=== PATIENT | male | born 1940 | race Caucasian/White ===

== ENCOUNTER → 2020-06-12 10:19 | Outpatient (BNVA) | payer MEDICARE, SELFPAY | PROVIDERS: PCP Family Medicine; Visit Provider Nurse Practitioner Gerontology | DX: Z13.89 Encounter for screening for other disorder (principal) | CPT/HCPCS: Q3014 ==

== ENCOUNTER → 2020-09-24 08:42 | Outpatient (BNVA) | payer MEDICARE, SELFPAY | PROVIDERS: PCP Family Medicine; Visit Provider Nurse Practitioner Gerontology | CPT/HCPCS: Q3014 ==

== ENCOUNTER → 2020-12-24 12:18 | Outpatient (BNVA) | payer MEDICARE, SELFPAY | PROVIDERS: PCP Family Medicine; Visit Provider Nurse Practitioner Gerontology | DX: E11.39 Type 2 diabetes mellitus with other diabetic ophthalmic complication (principal); E78.5 Hyperlipidemia, unspecified; I10 Essential (primary) hypertension | CPT/HCPCS: 82947; 99212 ==

== ENCOUNTER → 2021-04-29 11:49 | Outpatient (BNVA) | payer MEDICARE, SELFPAY | PROVIDERS: PCP Family Medicine; Visit Provider Nurse Practitioner Gerontology | DX: Z13.89 Encounter for screening for other disorder (principal) | CPT/HCPCS: Q3014 ==

== ENCOUNTER 2021-07-23 22:23 | Emergency (ER) | payer OTHER, SELFPAY ==
--- NOTE | ~2021-07-23 | CT_ITS ---
EXAMINATION: CT HEAD WITHOUT CONTRAST CLINICAL INFORMATION: Fall, unclear history. COMPARISON: CT head 08/22/2012. TECHNIQUE: Contiguous axial imaging was performed from the skull base to vertex without intravenous administration of contrast. This CT examination was performed using dose optimization techniques as appropriate, variously including the following: *Automated exposure control *Adjustment of mA and/or kV according to patient size (this includes techniques or standardized protocols for targeted exams where dose is matched to indication/reason for exam; i.e. extremities or head) *Use of iterative reconstruction technique DLP: 664 mGy-cm FINDINGS: Moderate diffuse commensurate prominence of ventricles and sulci is noted. Moderate subcortical and periventricular white matter patchy hypodensities are visualized. No intracranial hemorrhage, tumors or acute infarcts are noted. Dense calcific atherosclerosis is present in the cavernous portions of the internal carotid arteries and intradural segment of the left vertebral artery. Partial visualization is made of 1.5 cm rounded density within the left maxillary sinus which may represent a mucosal retention cyst. Bilateral ocular lens extractions are identified. The mastoid air cells are hypoplastic with findings most right. Mild left-frontal extra cranial soft tissue inflammatory changes noted. CT/CT head/brain wo con IMPRESSION: *No acute intracranial abnormalities. *Mild high left frontal extracranial soft tissue inflammatory changes. *Moderate chronic microangiopathic ischemic changes.
--- NOTE | ~2021-07-23 | XR_ITS ---
EXAMINATION: LEFT FOOT, LEFT HIP CLINICAL INFORMATION: Fall with pain COMPARISON: CT abdomen pelvis 02/16/2016 TECHNIQUE: 3 views foot, single view pelvis with 2 additional views left hip FINDINGS: Some mild scattered areas of sclerosis are present in the pelvis and femurs. No definite discrete lesion or fracture is seen. Marked vascular calcifications are seen. Similar patchy areas of sclerosis are seen in the foot. Vascular calcifications are seen. No acute fractures are seen. Some mild degenerative changes are present at the DIP joints and the first metatarsal phalangeal joint. XR/XR foot LT 2V IMPRESSION: No evidence of fracture in the left hip or foot after the patient's fall. There are scattered sclerotic bony changes seen. Correlate with alkaline phosphatase and bone scan if needed.
--- NOTE | ~2021-07-23 | XR_ITS ---
EXAMINATION: LEFT FOOT, LEFT HIP CLINICAL INFORMATION: Fall with pain COMPARISON: CT abdomen pelvis 02/16/2016 TECHNIQUE: 3 views foot, single view pelvis with 2 additional views left hip FINDINGS: Some mild scattered areas of sclerosis are present in the pelvis and femurs. No definite discrete lesion or fracture is seen. Marked vascular calcifications are seen. Similar patchy areas of sclerosis are seen in the foot. Vascular calcifications are seen. No acute fractures are seen. Some mild degenerative changes are present at the DIP joints and the first metatarsal phalangeal joint. XR/XR hip LT w PEL1V IMPRESSION: No evidence of fracture in the left hip or foot after the patient's fall. There are scattered sclerotic bony changes seen. Correlate with alkaline phosphatase and bone scan if needed.
[2021-07-23 22:38] VITALS: BP 160/75; BP 170/80; PULSE 80; PULSE 82; RESP 16; TEMP 36.7; O2SAT 96; BMI 24.2
--- NOTE | 2021-07-23 23:13 | ED_ITS ---
HPI - Fall General Chief Complaint: Fall Stated Complaint: FALL Time Seen by Provider: 07/23/21 23:03 Source: patient and EMS Mode of arrival: EMS Limitations: no limitations History of Present Illness HPI Narrative: Patient comes to the emergency room complaining of a mechanical fall. Patient cannot give any history, patient is poor historian and also has history of dementia. According to the staff, the patient accidentally stuck his foot under the door, tripped, was able to lower himself to the ground. No loss of consciousness. Patient complaining of toe pain and left hip pain. Per EMS and paperwork, patient is not on blood thinners Related Data Home Medications Medication Instructions Recorded Confirmed acetaminophen 650 mg 650 mg PO TID 12/24/20 12/24/20 tablet,extended release cyanocobalamin (vitamin B-12) 1,000 mcg PO DAILY 12/24/20 12/24/20 1,000 mcg tablet divalproex 500 mg tablet,delayed 500 mg PO BID 12/24/20 12/24/20 release finasteride 5 mg tablet 5 mg PO QAM 12/24/20 12/24/20 isosorbide mononitrate 30 mg 30 mg PO QAM 12/24/20 12/24/20 tablet,extended release 24 hr memantine 10 mg tablet 10 mg PO BID 12/24/20 12/24/20 metoprolol succinate 50 mg 50 mg PO DAILY 12/24/20 12/24/20 tablet,extended release 24 hr mirtazapine 7.5 mg tablet 7.5 mg PO BEDTIME 12/24/20 12/24/20 nitroglycerin 0.4 mg sublingual 0.4 mg SUBLINGUAL Q5M PRN 12/24/20 12/24/20 tablet omeprazole 20 mg capsule,delayed 20 mg PO DAILY 12/24/20 12/24/20 release quetiapine 50 mg tablet 50 mg PO BEDTIME 12/24/20 12/24/20 sertraline 25 mg tablet 25 mg PO DAILY 12/24/20 12/24/20 tamsulosin 0.4 mg capsule 0.4 mg PO QAM cap 12/24/20 04/29/21 Previous Rx's Medication Instructions Recorded blood sugar diagnostic (FreeStyle #100 ea 03/24/20 Lite Strips) lancets 33 gauge (TRUEplus Lancets) #100 ea 03/24/20 blood-glucose meter (FreeStyle #1 ea 06/12/20 Lite Meter) gabapentin 100 mg capsule 100 mg PO TID #90 cap 09/03/20 blood-glucose meter (FreeStyle #1 ea 12/24/20 [place] Lite) lancets 28 gauge (FreeStyle #100 ea 12/24/20 Lancets) alcohol swabs (Alcohol Prep Pads) 1 pad TOPICAL QID #100 pad 04/29/21 blood sugar diagnostic (FreeStyle #50 ea 04/29/21 Lite Strips) metformin 500 mg tablet 500 mg PO BID 30 Days #60 tab 04/29/21 atorvastatin 80 mg tablet 80 mg PO QPM #90 tab 05/26/21 Allergies Allergy/AdvReac Type Severity Reaction Status Date / Time rosuvastatin Allergy Unknown headaches Verified 04/29/21 12:52 JALAPENO PEPPERS Allergy Mild RASH Uncoded 04/29/21 12:52 Review of Systems Review of Systems: Constitutional : No Weight loss, No Fever, No Chills, No Night Sweats, No Fatigue, No Malaise ENT/Mouth : No Hearing loss, No Ear Pain, No Nasal Congestion, No Sinus Pain, No Hoarseness, No sore throat, No Rhinorrhea, No Swallowing Difficulty Eyes: No Eye Pain, No Swelling, No Redness, No Foreign Body, No Discharge, No Vision Changes Cardiovascular : No Chest Pain, No SOB, No Dyspnea on Exertion, No Orthopnea, No Edema, No Palpitations Respiratory : No Cough, No Sputum, No Wheezing, No Smoke Exposure, No Dyspnea Gastrointestinal : No Nausea, No Vomiting, No Diarrhea, No Constipation, No abdominal Pain, No Hematochezia, No Melena Genitourinary : no irregular bleeding, No Dysuria, No Urinary Frequency, No Hematuria, No Urinary Incontinence, No Urgency, No Flank Pain, No Urinary Flow Changes, No Hesitancy Musculoskeletal : Complaining of left hip pain and toe pain on the left foot, great toe Skin : No Skin Lesions, No rash Neuro : No Weakness, No Numbness, No Paresthesias, No Loss of Consciousness, No Dizziness, No Headache Psych : No Anxiety/Panic, No Depression, No SI/HI/AH/VH, No Social Issues, Heme/Lymph: No Bruising, No Bleeding,No Lymphadenopathy Endocrine : No Polyuria, No Polydipsia, No Temperature Intolerance PMFSH Past Medical History Medical History CAD (coronary artery disease) Carpal tunnel syndrome, bilateral Chondrocalcinosis Essential hypertension Hesitancy Hyperlipidemia LDL goal <70 Incomplete bladder emptying Morbid obesity due to excess calories Neuropathy Osteoarthritis Osteopenia Type 2 diabetes mellitus with hyperglycemia Type 2 diabetes mellitus with other diabetic ophthalmic complication Surgical History Hx of abdominal surgery Hx of CABG Hx of heart surgery Family History Family History Father Heart disease CVD (cardiovascular disease) Mother Diabetes Social History Social History Household Members: Children Household Members Other:: son Nathaniel Conrad Alcohol intake: never Patient Tobacco Use Status: Never used Tobacco Advance Directives: No Advance Directives Information Provided: Yes Physical Exam Vital Signs: Vital Signs: Last Vital Signs Temp 98.1 F 07/23/21 22:38 Pulse 80 07/23/21 22:38 Resp 16 07/23/21 22:38 BP 160/75 H 07/23/21 22:38 Pulse Ox 96 07/23/21 22:38 BMI result Body Mass Index 24.2 Const: Other: Appearance: Alert. Oriented X3. No acute distress. Eyes: Pupils equal, round and reactive to light. ENT: Pharynx normal. Neck: Normal inspection. Neck supple. No lymph nodes noted. No crepitus CVS: Normal heart rate and rhythm. Pulses normal. Normal S1 and S2 Respiratory: No respiratory distress. Breath sounds normal. No Wheezing. No rales Abdomen: Soft and nontender. No rigidity. No distention. Skin: Skin warm and dry. Normal skin color. Normal skin turgor. Extremities: No pain to palpation over the hip, patient is able to flex and extend the hip. Pain to palpation over the great toe, specifically over the toenail Neuro: Oriented X 3. No motor deficit. No sensory deficit. Moving all extremities. No slurred speech. CN 2 through 12 grossly intact Psych: calm, cooperative, normal affect Course Course Course Narrative: CT scan of the head pending, as well as the x-rays of the hip, pelvis and toes. Pelvis x-ray shows sclerotic changes. Labs pending. Sign-out given to Dr. Do MDM - Fall Imaging Data CT scan - head: Radiologist's impression: Moderate diffuse commensurate prominence of ventricles and sulci is noted. Moderate subcortical and periventricular white matter patchy hypodensities are visualized. No intracranial hemorrhage, tumors or acute infarcts are noted. Dense calcific atherosclerosis is present in the cavernous portions of the internal carotid arteries and intradural segment of the left vertebral artery. Partial visualization is made of 1.5 cm rounded density within the left maxillary sinus which may represent a mucosal retention cyst. Bilateral ocular lens extractions are identified. The mastoid air cells are hypoplastic with findings most right. Mild left-frontal extra cranial soft tissue inflammatory changes noted. CT/CT head/brain wo con IMPRESSION: *No acute intracranial abnormalities. *Mild high left frontal extracranial soft tissue inflammatory changes. *Moderate chronic microangiopathic ischemic changes. Hips and pelvis x-ray: Radiologist's impression: Some mild scattered areas of sclerosis are present in the pelvis and femurs. No definite discrete lesion or fracture is seen. Marked vascular calcifications are seen.? Similar patchy areas of sclerosis are seen in the foot. Vascular calcifications are seen. No acute fractures are seen. Some mild degenerative changes are present at the DIP joints and the first metatarsal phalangeal joint. XR/XR hip LT w PEL1V IMPRESSION: No evidence of fracture in the left hip or foot after the patient's fall. There are scattered sclerotic bony changes seen. Correlate with alkaline phosphatase and bone scan if needed Discharge Plan Discharge Clinical Impression: Fall, Multiple contusions Patient Disposition: Home, Self-Care Instructions: Contusion in Adults (ED) Additional Instructions: Please follow-up with your primary care physician tomorrow. If you have any worsening or new symptoms, please return to the emergency room or call 911 Prescriptions: No Action (DME) lancets [TRUEplus Lancets] 33 gauge misc See Rx Instructions .ROUTE .MEDSUPPLY Qty: 100 6RF Rx Instructions: As directed 3 times a day (DME) FreeStyle Lite Strips Strip See Rx Instructions .ROUTE .MEDSUPPLY Qty: 100 6RF Rx Instructions: As directed 3 times a day gabapentin 100 mg capsule 100 mg PO TID Qty: 90 6RF atorvastatin 80 mg tablet 80 mg PO QPM Qty: 90 0RF (DME) blood-glucose meter [FreeStyle Lite Meter] Kit See Rx Instructions .ROUTE .MEDSUPPLY Qty: 1 0RF Rx Instructions: As directed three times a day cyanocobalamin (vitamin B-12) 1,000 mcg tablet 1,000 mcg PO DAILY 0RF memantine 10 mg tablet 10 mg PO BID 0RF quetiapine 50 mg tablet 50 mg PO BEDTIME 0RF metoprolol succinate 50 mg tablet extended release 24 hr 50 mg PO DAILY 0RF divalproex 500 mg tablet,delayed release (DR/EC) 500 mg PO BID 0RF finasteride 5 mg tablet 5 mg PO QAM 0RF isosorbide mononitrate 30 mg tablet extended release 24 hr 30 mg PO QAM 0RF mirtazapine 7.5 mg tablet 7.5 mg PO BEDTIME 0RF nitroglycerin 0.4 mg tablet, sublingual 0.4 mg sublingual Q5M PRN0RF Rx Instructions: do not exceed 3 doses per episode omeprazole 20 mg capsule,delayed release(DR/EC) 20 mg PO DAILY 0RF acetaminophen 650 mg tablet extended release 650 mg PO TID 0RF sertraline 25 mg tablet 25 mg PO DAILY 0RF (DME) blood-glucose meter [FreeStyle [place] Lite] Kit See Rx Instructions .ROUTE .MEDSUPPLY Qty: 1 0RF Rx Instructions: TWice a day (DME) lancets [FreeStyle Lancets] 28 gauge misc See Rx Instructions .ROUTE .MEDSUPPLY Qty: 100 6RF Rx Instructions: As directed twice a day tamsulosin 0.4 mg capsule 0.4 mg PO QAM 0RF metformin 500 mg tablet 500 mg PO BID 30 Days Qty: 60 6RF (DME) FreeStyle Lite Strips Strip See Rx Instructions .ROUTE .MEDSUPPLY Qty: 50 11RF Rx Instructions: As directed twice a day alcohol swabs [Alcohol Prep Pads] Pads, Medicated 1 pad topical QID Qty: 100 11RF
[2021-07-24 01:29] LABS: MANUAL DIFF FLAG NO
[2021-07-24 01:30] LABS: Basophils Percent Auto 0.2 % (0-2); Eosinophils Percent Auto 0.7 % (0-4); Hematocrit 33.6 % (42.0-52.0); Hemoglobin 11.1 g/dl (14.0-18.0); Imm Gran Abs Auto 0.02 X10*3/uL (0.00-0.03); Imm Gran Pct Auto 0.3 % (0.0-0.4); Lymphocytes Absolute Auto 2.9 X10*3/uL (1.2-4.9); Lymphocytes Percent Auto 49.4 % (20-40); Mean Corpuscular Hemoglobin 30.7 pg (27.0-33.0); Mean Corpuscular Volume 92.8 fL (80.0-98.0); Mean Platelet Volume 9.6 fL (9.4-12.4); Monocytes Absolute Auto 0.4 X10*3/uL (0.1-1.2); Monocytes Percent Auto 6.6 % (2-11); Neutrophils Absolute Auto 2.5 x10*3/uL (2.0-8.3); Neutrophils Percent Auto 42.8 % (45-73); Platelet Count 196 X10*3/uL (160-400); Red Blood Count 3.62 X10*6/uL (4.60-5.80); Red Cell Distribution Width 13.9 % (11.0-16.0); White Blood Count 5.9 X10*3/uL (4.8-10.8)
[2021-07-24 01:45] LABS: Anion Gap 14 (12-20); Blood Urea Nitrogen 32 mg/dL (9-16); Calcium 9.7 mg/dL (8.4-10.2); Carbon Dioxide 25 mmol/L (22-29); Chloride 107 mmol/L (96-108); Creatinine Clr Calc Pharmacy 38.6; Estimated Glomerular Filt Rate 48; Glucose Random 161 mg/dL (60-115); Potassium 5.2 mmol/L (3.3-5.1); Sodium 141 mmol/L (135-145)
[2021-07-24 01:46] VITALS: BP 166/72; PULSE 60; RESP 14; O2SAT 97
[2021-07-24 02:26] LABS: Alanine Aminotransferase 9 U/L (0-40); Albumin Level 3.9 g/dL (3.5-5.0); Alkaline Phosphatase 42 U/L (39-117); Aspartate Amino Transferase 16 U/L (5-37); Bilirubin Direct < 0.2 mg/dL (0.0-0.5); Bilirubin Total 0.2 mg/dL (0.0-1.0); Total Protein 7.2 g/dL (6.5-8.0)
--- NOTE | 2021-07-24 04:15 | PC.NURSE ---
Hand off completed with charge nurse at [facility] prior to pt discharge.
[2021-07-27 13:42] LABS: Alkaline Phosphatase Bone 4.3 mcg/L (see note)
== END 2021-07-24 04:20 | disposition home or self-care (01) ==
PROVIDERS: Internal Medicine; Emergency Provider Emergency Medicine
DX: T14.8XXA Other injury of unspecified body region, initial encounter (principal); I10 Essential (primary) hypertension; E11.9 Type 2 diabetes mellitus without complications; I25.10 Atherosclerotic heart disease of native coronary artery without angina pectoris; F03.90 Unspecified dementia, unspecified severity, without behavioral disturbance, psychotic disturbance, mood disturbance, and anxiety; W01.0XXA Fall on same level from slipping, tripping and stumbling without subsequent striking against object, initial encounter; Y93.9 Activity, unspecified; Y92.9 Unspecified place or not applicable; Y99.9 Unspecified external cause status
CPT/HCPCS: 36415; 70450; 73502; 73620; 80048; 80076; 84075; 85025; 99284

== ENCOUNTER 2023-04-22 11:16 | Outpatient (REF) | payer OTHER, SELFPAY ==
[2023-04-22 14:27] LABS: MANUAL DIFF FLAG NO
[2023-04-22 14:33] LABS: Basophils Percent Auto 0.2 % (0-2); Eosinophils Absolute Auto 0.1 X10*3/uL (0.0-0.4); Hemoglobin 11.7 g/dl (14.0-18.0); Imm Gran Abs Auto 0.02 X10*3/uL (0.00-0.03); Imm Gran Pct Auto 0.4 % (0.0-0.4); Lymphocytes Absolute Auto 2.9 X10*3/uL (1.2-4.9); Lymphocytes Percent Auto 56.9 % (20-40); Mean Corpuscular HGB Conc 31.6 g/dl (31.0-36.0); Mean Corpuscular Volume 94.9 fL (80.0-98.0); Mean Platelet Volume 10.7 fL (9.4-12.4); Monocytes Absolute Auto 0.4 X10*3/uL (0.1-1.2); Monocytes Percent Auto 7.1 % (2-11); Neutrophils Absolute Auto 1.8 x10*3/uL (2.0-8.3); Neutrophils Percent Auto 34.4 % (45-73); Platelet Count 226 X10*3/uL (160-400); Red Cell Distribution Width 14.5 % (11.0-16.0); White Blood Count 5.1 X10*3/uL (4.8-10.8)
[2023-04-22 14:59] LABS: Alanine Aminotransferase 7 U/L (0-40); Albumin Level 4.5 g/dL (3.5-5.0); Alkaline Phosphatase 32 U/L (39-117); Anion Gap 17 (12-20); Aspartate Amino Transferase 14 U/L (5-37); Bilirubin Total 0.3 mg/dL (0.0-1.0); Blood Urea Nitrogen 13 mg/dL (9-16); Calcium 10.4 mg/dL (8.4-10.2); Carbon Dioxide 24 mmol/L (22-29); Chloride 108 mmol/L (96-108); Cholesterol 157 mg/dL (<200); Estimated Glomerular Filt Rate 55; Glucose Random 171 mg/dL (60-115); HDL Cholesterol 44 mg/dL (>40); LDL Cholesterol Calculated 70 mg/dL (<100); Potassium 4.6 mmol/L (3.3-5.1); Sodium 144 mmol/L (135-145); Total Protein 8.3 g/dL (6.5-8.0); Triglycerides 216 mg/dL (<150)
[2023-04-22 15:04] LABS: TSH reflex Free T4 1.09 uIU/mL (0.32-4.0)
== END 2023-04-22 11:17 | disposition home or self-care (01) ==
LOC: HO.CHCLDS 11:16
PROVIDERS: Visit Provider Family Medicine
DX: E11.9 Type 2 diabetes mellitus without complications (principal)
CPT/HCPCS: 36415; 80053; 80061; 84443; 85025

== ENCOUNTER 2023-11-22 15:47 | Outpatient (REF) | payer OTHER, SELFPAY ==
[2023-11-22 17:31] LABS: MANUAL DIFF FLAG NO
[2023-11-22 17:40] LABS: Basophils Percent Auto 0.2 % (0-2); Eosinophils Absolute Auto 0.1 X10*3/uL (0.0-0.4); Eosinophils Percent Auto 1.2 % (0-4); Hematocrit 31.5 % (42.0-52.0); Hemoglobin 10.4 g/dl (14.0-18.0); Imm Gran Abs Auto 0.02 X10*3/uL (0.00-0.03); Imm Gran Pct Auto 0.3 % (0.0-0.4); Lymphocytes Absolute Auto 2.7 X10*3/uL (1.2-4.9); Mean Corpuscular Hemoglobin 30.6 pg (27.0-33.0); Mean Corpuscular Volume 92.6 fL (80.0-98.0); Mean Platelet Volume 10.4 fL (9.4-12.4); Monocytes Absolute Auto 0.6 X10*3/uL (0.1-1.2); Monocytes Percent Auto 9.5 % (2-11); Neutrophils Absolute Auto 2.4 x10*3/uL (2.0-8.3); Neutrophils Percent Auto 41.8 % (45-73); Platelet Count 180 X10*3/uL (160-400); Red Cell Distribution Width 14.8 % (11.0-16.0); White Blood Count 5.8 X10*3/uL (4.8-10.8)
[2023-11-22 18:08] LABS: Alanine Aminotransferase 7 U/L (0-40); Albumin Level 3.9 g/dL (3.5-5.0); Alkaline Phosphatase 32 U/L (39-117); Anion Gap 17 (12-20); Aspartate Amino Transferase 14 U/L (5-37); Bilirubin Total 0.2 mg/dL (0.0-1.0); Blood Urea Nitrogen 27 mg/dL (9-16); Carbon Dioxide 23 mmol/L (22-29); Chloride 108 mmol/L (96-108); Estimated Glomerular Filt Rate 43; Glucose Random 142 mg/dL (60-115); Potassium 4.9 mmol/L (3.3-5.1); Sodium 143 mmol/L (135-145); Total Protein 7.5 g/dL (6.5-8.0)
[2023-11-24 22:43] LABS: TS Negative Control Passed; TS Panel A 3; TS Panel B 1; TS Positive Control Passed; TSpotTB Negative (Negative)
== END 2023-11-22 15:48 | disposition home or self-care (01) ==
LOC: HO.CHCLDS 15:47
PROVIDERS: Visit Provider Family Medicine
DX: Z00.00 Encounter for general adult medical examination without abnormal findings (principal); E11.9 Type 2 diabetes mellitus without complications
CPT/HCPCS: 36415; 80053; 85025; 86481

== ENCOUNTER 2024-06-30 13:34 | Outpatient (REF) | payer OTHER, SELFPAY ==
[2024-06-30 14:46] LABS: Anion Gap 12 (12-20); Blood Urea Nitrogen 28 mg/dL (9-16); Calcium 9.7 mg/dL (8.4-10.2); Carbon Dioxide 25 mmol/L (22-29); Chloride 111 mmol/L (96-108); Estimated Glomerular Filt Rate 41; Glucose Random 137 mg/dL (60-115); Potassium 5.1 mmol/L (3.3-5.1); Sodium 143 mmol/L (135-145)
--- OUTSIDE RECORDS SUMMARY | 2024-06-30 15:24 | XMS_ITS | Data Portability ---
Author Organization [facility] [facility] [facility], [facility] [employer] Address [address] [place] [address] Care Team Providers Care Eligibility Services Representative Name Role Phone [facility] Referring Provider Assessment No assessment recorded. Plan of Treatment Reminders Order Date Submit Date Provider Last Modified By Organization Details Last Modified Time Details Appointments None recorded . Lab culture, urine + sensitiv ity 2021 022 galile[facility] Not available 11:30:24 Referral None recorded . Procedures None recorded . Surgeries None recorded . Imaging None recorded . Medication Orders Bactrim DS 800 mg-160 mg tablet 2021 022 [facility], [address] [place] [address], [id number], 17:12:05 Patient TargetsNo targets recorded. Patient InstructionsNo instructions recorded. Reason for Referral None Reported. Medical Equipment None Reported. Medications Name Sig Start Date Stop Date Status Note LastModified by Organization Details LastModified Time multivitamin tablet TAKE ONE TABLET EVERY MORNING WITH FOOD active Not Available Not Available No t Available quetiapine 25 mg tablet TAKE 1 TABLET BY MOUTH TWICE DAILY NEEDED FOR AGITATION active Not Available Not Available No t Available atorvastatin 40 mg tablet TAKE 1 TABLET BY MOUTH AT BEDTIME active Not Available Not Available No t Available metformin 500 mg tablet TAKE 1 TABLET BY MOUTH TWICE DAILY IN THE MORNING AND IN THE EVENING active Not Available Not Available No t Available atorvastatin 80 mg tablet TAKE 1 TABLET BY MOUTH AT BEDTIME active Not Available Not Available No t Available metoprolol succinate ER 50 mg tablet,exten ded release 24 hr TAKE 1 TABLET BY MOUTH EVERY MORNING active Not Available Not Available No t Available isosorbide mononitrate ER 30 mg tablet,exten ded release 24 hr TAKE 1 TABLET BY MOUTH EVERY MORNING active Not Available Not Available No t Available metoprolol succinate ER 100 mg tablet,exten ded release 24 hr TAKE 1 TABLET BY MOUTH EVERY MORNING active Not Available Not Available No t Available metformin 850 mg tablet active Not Available Not Available Not Available cyanocobalam in (vit B-12) 1,000 mcg tablet TAKE 1 TABLET BY MOUTH EVERY MORNING active Not Available Not Available No t Available nifedipine ER 30 mg tablet,exten ded release TAKE 1 TABLET BY MOUTH EVERY EVENING active Not Available Not Available No t Available divalproex 500 mg tablet,delay ed release TAKE 1 TABLET BY MOUTH TWICE DAILY IN THE MORNING AND AT BEDTIME active Not Available Not Available No t Available sulfamethoxa zole 800 mg-trimethop rim 160 mg tablet TAKE ONE TABLET BY MOUTH EVERY TWELVE HOURS FOR 7 DAYS active Not Available Not Available No t Available aspirin 81 mg tablet,delay ed release TAKE 1 TABLET BY MOUTH EVERY MORNING active Not Available Not Available No t Available quetiapine 100 mg tablet TAKE 1 TABLET BY MOUTH EVERY MORNING and TAKE 2 TABLETS BY MOUTH EVERY DAY AT BEDTIME active Not Available Not Available No t Available tamsulosin 0.4 mg capsule TAKE 1 CAPSULE BY MOUTH EVERY MORNING active Not Available Not Available No t Available nitroglyceri n 0.4 mg sublingual tablet DISSOLVE 1 TABLET UNDER THE TONGUE EVERY 5 MINUTES NEEDED FOR CHEST PAIN. CALL 911 IF NO RELIEF active Not Available Not Available No t Available sertraline 25 mg tablet TAKE ONE TABLET EVERY MORNING active Not Available Not Available No t Available omeprazole 20 mg capsule,kalia yed release TAKE 1 CAPSULE BY MOUTH EVERY MORNING BEFORE A MEAL active Not Available Not Available No t Available ammonium lactate 12 % topical cream APPLY TOPICALLY TO AFFECTED AREA(S) ONCE DAILY active Not Available Not Available N ot Available gabapentin 100 mg capsule TAKE 1 CAPSULE BY MOUTH THREE TIMES DAILY IN THE MORNING, EVENING, AND BEDTIME active Not Available Not Available Not Available levofloxacin 750 mg tablet TAKE 1 TABLET BY MOUTH EVERY 48 HOURS FOR 7 DAYS (STOP DATE OF 08/22/21) active Not Available Not Available Not Available finasteride 5 mg tablet TAKE 1 TABLET BY MOUTH EVERY MORNING active Not Available Not Available No t Available memantine 10 mg tablet TAKE 1 TABLET BY MOUTH TWICE DAILY IN THE MORNING AND IN THE EVENING active Not Available Not Available No t Available Alcohol Prep Pads USE DIRECTED FOUR TIMES DAILY active Not Available Not Available No t Available mirtazapine 7.5 mg tablet TAKE 1 TABLET BY MOUTH AT BEDTIME active Not Available Not Available No t Available quetiapine 50 mg tablet TAKE 1 TABLET BY MOUTH TWICE DAILY NEEDED FOR AGITATION active Not Available Not Available No t Available FreeStyle Lite Strips TEST BLOOD SUGAR TWICE DAILY active Not Available Not Available No t Available FreeStyle [place] Lite kit TEST BLOOD SUGAR TWICE DAILY active Not Available Not Available No t Available melatonin 5 mg tablet TAKE 1 TABLET BY MOUTH AT BEDTIME NEEDED FOR SLEEP active Not Available Not Available No t Available Pain Relief (acetaminoph en) 650 mg tablet,exten ded release TAKE 1 TABLET BY MOUTH EVERY 8 HOURS NEEDED FOR PAIN SWALLOW WHOLE WITH WATER active Not Available Not Available No t Available TRUEplus Lancets 33 gauge TEST BLOOD SUGAR TWICE DAILY active Not Available Not Available No t Available Trulicity 1.5 mg/0.5 mL subcutaneous pen injector INJECT ONE PEN (=1.5MG) SUBCUTANEOU SLY ONCE A WEEK DIRECTED active Not Available Not Available No t Available Pentips Pen Needle 32 gauge x 5/32 USE DIRECTED ONCE DAILY active Not Available Not Available N ot Available Tresiba FlexTouch U-100 insulin 100 unit/mL (3 mL) subcutaneous pen INJECT 35 UNITS SUBCUTANEOU SLY DAILY active Not Available Not Available No t Available Vitals Date Recorded Body weight Respiratory rate Oxygen saturation Oxygen saturation in Arterial blood by Pulse oximetry Body temperature Heart rate Systolic blood pressure Diastolic blood pressure Provider Name and Address Organization Details Last Updated DateTime 4 97094.1 2 g 16 /min 98 % 98 % 98.7 [degF] 80 /min 154 mm[Hg] 84 mm[Hg] Not Available [facility] [employer] 4 10:33:57 Date Recorded Body temperature Body weight Respiratory rate Heart rate Oxygen saturation Oxygen saturation in Arterial blood by Pulse oximetry Body height Body weight Respiratory rate Body temperature Body height Oxygen saturation Oxygen saturation in Arterial blood by Pulse oximetry Heart rate Systolic blood pressure Diastolic blood pressure Systolic blood pressure Diastolic blood pressure Provider Name and Address Organization Details Last Updated DateTime 2 97.2 [degF] 86309.8 8 g 18 /min 74 /min 99 % 99 % 160.02 cm 86525.8 8 g 18 /min 97.2 [degF] 160.02 cm 99 % 99 % 74 /min 162 mm[Hg] 78 mm[Hg] 162 mm[Hg] 78 mm[Hg] Not Available [facility] [employer] 2 12:22:24 Date Recorded Heart rate Respiratory rate Body temperature Oxygen saturation Oxygen saturation in Arterial blood by Pulse oximetry Systolic blood pressure Diastolic blood pressure Provider Name and Address Organization Details Last Updated DateTime 2 78 /min 18 /min 98.1 [degF] 96 % 96 % 122 mm[Hg] 78 mm[Hg] Not Available [facility] 2 16:24:42 Social History None recorded. Functional Status None recorded. Mental Status None recorded. Family History Nothing Reported. Medical History No medical history recorded. Past Encounters Encounter ID Performer Location Encounter Start Date Encounter Closed Date Diagnosis/Indication Diagnosis SNOMED-CT Code Diagnosis ICD10 Code Diagnosis Note [id number] eLeanne Gonzalez MD [facility] [address] [place] [phone] 09/25/2021 11:25:34 11/26/2021 11:20:43 Acute urinary tract infection 725379546 N39.0 mildly positive UA with consistent symptoms for the past 3 days and history of UTIs. Has good support at home (family) and no evidence of urosepsis or obstructed stone for time being. Per med review has taken levaquin and bactrim in the past.- 7d bactrim- urine culture w/ sensitivit ies [id number] Musa Hewitt MD [facility] [address] [place] [phone] 01/22/2022 16:24:29 01/27/2022 15:11:18 Medical examination for suspected condition 820212700 Z04.9 Small area of pressure on the instep of the foot where the patient has been resting it against the bed. Normal range of motion of the ankle and foot makes gout very unlikely. Normal CSMs otherwise. Patient's son will place a pad between his foot and the bed to avoid further pressure injury. [id number] Lesly Sanchez MD [facility] [address] [place] [phone] 04/23/2023 10:33:09 04/23/2023 16:46:17 Low blood pressure 41166481 I95.9 82 year old male with HTN and CKD, being evaluated for an episode of low blood pressure this morning by home BP cuff, 104/94. Patient compliant with all his meds, including a new dose of amlodipine started yesterday, feeling well, no chest pain/synco pe/dizzine ss or fever. Exam notable for BP 154/84, with otherwise normal vital signs. Presentati on consistent with hypertensi on that is suboptimal ly controlled by today's assessment , without evidence of hypertensi ve urgency/em ergency or hypotensio n. Continue to monitor, and FU outpatient team regarding medication changes if values remain out of range. I have reviewed and agree with the assessment and plan as documented by the cashier. I provided real-time medical direction for this encounter and was immediatel y available to provide additional phone-base d assistance as needed. We discussed the diagnostic uncertaint y of home visits and associated risks. We discussed the need to seek care urgently/e mergently in the setting of any new or worsening symptoms. Health Concerns Section Related Observation LastModified by Organization Detai ls LastModified Time None Recorded Concern Status LastModified by Organization Details LastModified Time None Recorded Advance Directives Directive None Recorded Payers Encounter Date Sequence Insurance Name Policy Number Policy Renteria Covered Member ID Renteria Member ID Guarantor Name 09/25/2021 1 [facility] - DOS PRIOR TO 2022 - DUAL ELIGIBLE (MEDICARE REPLACEMENT/ADV ANTAGE - HMO) Kishan Andrews [id number] Kishan Andrews 01/22/2022 1 [facility] - DOS PRIOR TO 2022 - DUAL ELIGIBLE (MEDICARE REPLACEMENT/ADV ANTAGE - HMO) Kishan Andrews [id number] Kishan Andrews 04/23/2023 1 [facility] - DOS ON OR AFTER 2022 - DUAL ELIGIBLE - ASSISTED OPTIONS AND ONE CARE (MEDICARE REPLACEMENT/ADV ANTAGE - HMO) Kishan Andrews [id number] Kishan Andrews Notes Date Note Type Note Provider Name and Address Organization Details Recorded Time 09/25/2021 text/html HPI: Increased confusion Pain in lower back ................... ................... ................... ................... ................... ................... ................... ........ [facility] Nursing Assessment: Comments: Members nurse calling in to place a referral. Nurse very vague with symptoms and can not offer further infomration. ................... ................... ................... ................... ................... ................... ................... ........ [employer] Note: Sent to a call for a pt with increased confusion and back pain. [facility] arrives on scene, pt contact made in residence. Pt is alert and confused at baseline. Pt's family states pt has been complaining of low back pain and intermittent dizziness. Pt denies headache, cp, sob, n/v/d, abd pain, dysuria, or fever/chills. Pt complains of bilateral low back pain radiating to flanks. Pain is slightly increased with palpation, and worsens with movement. No CVA tenderness noted. BP:162/78, P:74, RR:18, SpO2:99% RA, T:97.2; Lung sounds: clear bilaterally. Pt ambulates with walker. Pt has been eating/drinking without problem. Pt was hospitalized approx one month ago for kidney infection/UTI. Urine sample obtained; Urine is yellow and concentrated. Urine dip results uploaded to [employer]. [facility] orders Bactrim and will send script to pt's pharmacy. Urine taken to lab for Urine culture. Bactrim administered without incident. Red flags discussed. Pt and family have no further questions. ................... ................... ................... ................... ................... ................... ................... ........ Disposition: Leann Leeanne Gonzalez MD [address] [place] [address],[address], [place], [phone], [facility] 09/25/2021 17:12:26 01/22/2022 text/html [facility] Nursing Assessment: Reason For Request: Patient's right foot is swollen. No signs of dehydration and no other symptoms. Chief Complaints: Wound Care PMH: Diabetes, Severe Dementia, Hypertension Allergies: No Known Comments: Spoke with son requesting [facility] visit for complaints of R foot swelling x 1 day deny trauma no redness deny fever/chills or pain at this time hx gout aware visit placed for 01/22/22. Discuss if symptoms progress to seek the ED verbalize understanding ................... ................... ................... ................... ................... ................... ................... ........ [employer] Note: Pts son states Pt lays in bed most of the day but has been putting his right foot on the bed frame that is made of hard wood. Pt denies any pain. No open sores or fever. Son states his foot looks better than earlier. Inside of right foot slightly swollen with distinct line from bed frame. Pts son going to add padding to frame. C consulted. Red flags discussed ................... ................... ................... ................... ................... ................... ................... ........ Disposition: Fulfilled Musa Hewitt MD [address] [facility],[address], [place], [address], [employer] 01/22/2022 17:27:26 04/23/2023 text/html HPI: HX: CKD,seizure disorder. Patient Son called with concerns of low BP this morning. Patient started on additional med amlopidine 5 mg yesterday for HTN. BP this morning per Son is 104/94. Recent BP 04/23/23 171/82 ................... ................... ................... ................... ................... ................... ................... ........ [facility] Nurse Triage Notes (Aurea Sherwood): Comments: Outreach made to member . Member was given the amlopidine Member is a/o , no lethargic, normal baseline ................... ................... ................... ................... ................... ................... ................... ........ [employer] Note From Alyssa Juan A: Pt had no complaints ? pt son concerned because BP when checked was 104/94..pt denies chest pain SOB, nausea vomiting or fever. Baseline vitals assessed. Vitals stable. [facility] contacted and advised to monitor BP. Pt and family education on signs indicating the ER. ................... ................... ................... ................... ................... ................... ................... ........ Disposition: Fulfilled Lesly Sanchez MD [address] [facility],[address], [place], [address], [facility] 04/23/2023 10:49:03
--- OUTSIDE RECORDS SUMMARY | 2024-06-30 15:25 | XMS_ITS | Encounter Summary ---
Author Organization [employer] Address [address] [facility] [address] [place] [address] Care Team Providers Care Claims Investigator Name Role Phone Birgit Keyes MD Primary Care Provider [phone] Reason for Visit * Reason Onset Date Comments Hospital Follow-up 02/15/2024 Encounter Details Date Type Department Care Team ([facility] Contact Info) Description 02/15/2024 Telephone [facility]INE [address] [place] [address] Birgit Keyes MD [address] [place] [address] Hospital Follow-up Social History Tobacco Use Types Packs/Day Years Used Date Smoking Tobacco: Never Smokeless Tobacco: Never Housing Stability Answer Date Recorded What is your housing situation today? I have eduardoyahir weaver 01/14/[address] you li ve. Do you have problems with any of the following? None of the above 01/14/2023 Food Insecurity Answer Date Recorded Within the past 12 months, y ou worried that your food would run out before you got money to buy more: Never True 01/14/2023 Within the past 12 months,th e food you bought just didn't last and you didn't have enough money to get more: Never True Transportation Answer Date Recorded In the past 12 months, has l ack of transportation kept you from medical appts, meetings, work or from getting things needed for daily living? No 01/14/2023 Utilities Answer Date Recorded In the past 12 months, has t he electric, gas, oil or water company threatened to shut off services in your home? No 01/14/2023 Sex and Gender Information Value Date Recorded Sex Assigned at Male 01/26/2022 10:20 AM EDT Legal Sex Male 10:20 AM EDT Gender Identity Male 01/26/2022 10:20 AM EDT Sexual Orientation Choose not to disclose 2021 10:20 AM EDT documented as of this encounter Miscellaneous Notes * Telephone Encounter - Sanju Shirley - 02/15/2024 1:52 PM EST Tc from pt requesting a HDF appt. Hospital: [facility] Date of admission: 01/21/2024 Discharge date: 01/25/2024 Diagnosed:head injury due to fall documented in this encounter Plan of Treatment Not on file documented as of this encounter Visit Diagnoses Not on filedocumented in this encounter Care Teams Claims Investigator Relationship Specialty Start Date End Date Birgit Keyes MD [address] [place] [address] PCP - General Family Medicine 11/29/20 [facility] 02/07/24 documented as of this encounter
--- OUTSIDE RECORDS SUMMARY | 2024-06-30 15:25 | XMS_ITS | Clinical Summary ---
Author Organization [facility] Address [address] [place] [address] Care Team Providers Care Commercial Fishing Vessel Operator Name Role Phone Unavailable Primary Care Provider Unavailabl e Social History Tobacco Use Types Packs/Day Years Used Date Smoking Tobacco: Never Assessed Sex and Gender Information Value Date Recorded Sex Assigned at Not on file Legal Sex Male 12:49 PM EST Gender Identity Not on file Sexual Orientation Not on file Plan of Treatment Health Maintenance Due Date Last Done Comments DTaP,Tdap,and Td Vaccines (1 - Tdap) 1961 Pneumococcal Vaccine: 50+ Ye ars (1 of 1 - PCV) 1992 Zoster Vaccines (1 of 2) 1992 RSV Immunization Adult Patie nts (1 - 1-dose 75+ series) 2017 Cholesterol Screening (Lipid Panel) 02/24/2022 Depression Screening 02/24/2022 Falls Risk Assessment 02/24/2022 Social Influencers of Health Screening 02/24/2022 COVID-19 Vaccine (1 - 2023-2 5 season) 2023 Influenza Vaccine (Season Ended) 2024 HIB Vaccines Aged Out No longer eligi ble based on patient's age to complete this topic HPV Vaccines Aged Out No longer eligi ble based on patient's age to complete this topic Hepatitis A Vaccines Aged Out No long er eligible based on patient's age to complete this topic Hepatitis B Vaccines Aged Out No long er eligible based on patient's age to complete this topic IPV Vaccines Aged Out No longer eligi ble based on patient's age to complete this topic MMR Vaccines Aged Out No longer eligi ble based on patient's age to complete this topic Meningococcal ACWY Vaccine Aged Out N o longer eligible based on patient's age to complete this topic Meningococcal B Vacine Aged Out No lo nger eligible based on patient's age to complete this topic RSV Immunization Patients Un delores 20 months Aged Out No longer eligible b ased on patient's age to complete this topic Varicella Vaccines Aged Out No longer eligible based on patient's age to complete this topic
--- OUTSIDE RECORDS SUMMARY | 2024-06-30 15:25 | XMS_ITS | Encounter Summary ---
Author Organization [employer] Address [address] [facility] [place] [address] Care Team Providers Care Nozzle Operator Name Role Phone Birgit Keyes MD Primary Care Provider [phone] Encounter Details Date Type Department Care Team (Late st Contact Info) Description 06/26/2024 Orders Only [facility] MED[facility] [address] [place], [place] [phone] Mia Montes De Oca NP [address] [place], [place] [phone] Social History Tobacco Use Types Packs/Day Years Used Date Smoking Tobacco: Never Smokeless Tobacco: Never Housing Stability Answer Date Recorded What is your housing situation today? I have eduardo weaver 01/14/[address] you [...] AM EDT documented as of this encounter Progress Notes * Mia Montes De Oca NP - 06/26/2024 9:15 AM EDT Covering provider received docu sign for [facility] orders for this patient. Discrepancy noted in isosorbide dosing reflective of 120 mg every day versus recent hospital discharge paperwork noted decreasingdose to 90 mg every day due to orthostatic hypotension. [facility] staff unable to reach patient to schedule HDF from 06/13/24; [place] MATA was unable to reach [facility] for med clarification (see her note regardingconservation with pharmacy). [facility] Jacob Acharya was able to reach patient's son this am Nathaniel who confirmed the patient has been getting 3 tabs of isosorbide 30 mg daily since hospital discharge. They have been discarding the 120 mg dose in the patient's Med-box. States patient has been tolerating 90 mg well with no BP concerns articulated by [facility] thus far. He did not have values to share with Mimi. I will send prescription for 90 mg every day to [facility] pharmacy. Nathaniel agrees to bring patient's med box in to be updated today. Call transferred to [place] for patient to be scheduled HDF. Flor with care management notified of changes as well. documented in this encounter Plan of Treatment Not on file documented as of this encounter Visit Diagnoses Not on filedocumented in this encounter Care Teams Nozzle Operator Relationship Specialty Start Date End Date Birgit Keyes MD [address] [place] [id number] PCP - General [facility] documented as of this encounter
--- OUTSIDE RECORDS SUMMARY | 2024-06-30 15:25 | XMS_ITS | Encounter Summary ---
Author Organization [employer] Address [address] [place] [address] [address] [place] [address] Care Team Providers Care Sharepoint Designer Developer Name Role Phone Birgit Keyes MD Primary Care Provider [phone] Reason for Visit * Reason Onset Date Comments FYI 02/02/2024 Encounter Details Date Type Department Care Team ([facility] Contact Info) Description 02/02/2024 Telephone [facility] [address] [place], [place] [phone] Birgit Keyes MD [address] [place] [address] FYI Social History Tobacco Use Types Packs/Day Years [...] encounter Miscellaneous Notes * Telephone Encounter - Andrea Benítez RN - 02/02/2024 11:36 AM EST Please see FYI below. * Telephone Encounter - Cynthia Mitchell - 02/02/2024 11:30 AM EST Tc from Cristela with [facility] calling to inform will be starting pt with physical and occupational therapy tomorrow 02/03/24. documented in this encounter Plan of Treatment Not on file documented as of this encounter Visit Diagnoses Not on filedocumented in this encounter Care Teams Sharepoint Designer Developer Relationship Specialty Start Date End Date Birgit Keyes MD [address] [place] [address] PCP - General Family Medicine 11/29/20 [facility] 02/07/24 documented as of this encounter
--- OUTSIDE RECORDS SUMMARY | 2024-06-30 15:25 | XMS_ITS | Encounter Summary ---
Author Organization [employer] Address [address] [facility] [place] [address] Care Team Providers Care Sound Assistant Name Role Phone Birgit Keyes MD Primary Care Provider [phone] Reason for Visit * Reason Onset Date Comments Nurse Triage 04/23/2023 Encounter Details Date Type Department Care Team ([facility] st Contact Info) Description 04/23/2023 Telephone [facility] [address] [place] [address] Birgit Keyes MD [address] [place], [place] [phone] Nurse Triage Social History Tobacco Use Types Packs/Day Years [...] encounter Miscellaneous Notes * Telephone Encounter - Asia Martinez RN - 04/26/2023 10:28 AM EST Returned call to pt son regarding message below. Pt son answered and was asked if [facility] evaluated pt on Wednesday. Son states BP on Wednesday when [facility] was there was 82/50. Son was advised to not give pt amlodipine prescribed at last visit. Son states he has help amlodipine over the weekend and given pt hisusual meds and this morning pt BP was 120/66. Son states he will not restart the med. Pt is scheduled for f/u on Wednesday and can discuss further POC with PCP but advised to keep BP log and report any worsening BP of either systolic or diastolic >140/90. Son verbalized understanding and agrees with plan. Will send to PCP as FYI. * Telephone Encounter - Prema Martinez LPN - 04/23/2023 8:43 AM EST Triage call returned to patientSon who reports concern of low BP as recorded this morning at 104/94. Patient without complaints. Good fluid intake.Started on Amlopidine 5mg yesterday with first dose given as ordered. Reviewed BP with Son that diastolic still high. Son concerned that future doses will have ill effect. No PCP or Team appts at time of call [facility] Home evaluation referral placed and address and phone verified with Son. Team tasked to update PCP on patient status and sons concern with medication started 04/23/23. Multiple (2) protocols were used on this call. Disposition for Call: Discuss with PCP and Callback by Nurse within 1 Hour Protocol Used: Medication Question Call (Adult) Protocol-Based Disposition: Discuss with PCP and Callback by Nurse within 1 Hour Video visit not offered Positive Triage Question: * Caller has URGENT medicine question about med that PCP or specialist prescribed and triager unable to answer question * All higher-acuity triage questions were negative Protocol Used: Blood Pressure - Low (Adult) Protocol-Based Disposition: See in Office or Video Visit within 3 Days Positive Triage Questions: * Fall in systolic BP > 20 mm Hg from normal and NOT dizzy, lightheaded, or weak * Wants doctor to measure BP * All higher-acuity triage questions were negative Care Advice Discussed: * Reasons To Call Back - Lightheadedness, weakness, or dizziness occurs - Systolic BP under 90 - You feel sick - You become worse * Telephone Encounter - Sylvain Cardenas - 04/23/2023 8:19 AM EST Symptom: Low Blood Pressure - Caller Reports Outcome: Talk to a nurse or provider within 15 minutes Reason: Sudden decrease within the past 24 hours due to change of BP Medication patient was seen on04/23 The caller accepted this outcome documented in this encounter Plan of Treatment Not on file documented as of this encounter Visit Diagnoses Not on filedocumented in this encounter Care Teams Sound Assistant Relationship Specialty Start Date End Date Birgit Keyes MD [address] [place] [id number] PCP - General Family Medicine 11/29/20 [facility] 02/07/24 documented as of this encounter
--- OUTSIDE RECORDS SUMMARY | 2024-06-30 15:25 | XMS_ITS | Encounter Summary ---
Author Organization [employer] [facility] Address [address] [place] [address] [address] [place] [address] Care Team Providers Care Red Leader Name Role Phone Birgit Keyes MD Primary Care Provider [phone] Encounter Details Date Type Department Care Team (Late st Contact Info) Description 08/31/2022 Abstract [facility] [address] [place], [place] [phone] Birgit Keyes MD [address] [place] [address] Social History Tobacco Use Types Packs/Day Years Used Date Smoking Tobacco: Never Assessed Sex and Gender Information Value Date Recorded Sex Assigned at Male 01/26/2022 10:20 AM EDT Legal Sex Male 10:20 AM EDT Gender Identity Male 01/26/2022 10:20 AM EDT Sexual Orientation Choose not to disclose 2021 10:20 AM EDT documented as of this encounter Plan of Treatment Not on file documented as of this encounter Visit Diagnoses Not on filedocumented in this encounter Care Teams Red Leader Relationship Specialty Start Date End Date Birgit Keyes MD [address] [place] [address] PCP - General Family Medicine [facility] documented as of this encounter
--- OUTSIDE RECORDS SUMMARY | 2024-06-30 15:25 | XMS_ITS | Encounter Summary ---
Author Organization [facility] Address [address] [place] [address] Care Team Providers Care Health Diagnostics Teacher Name Role Phone Birgit Keyes MD Primary Care Provider [phone] Encounter Details Date Type Department Care Team (Latest Contact Info) Description 06/30/2024 Travel Social History Tobacco Use Types Packs/Day Years [...] on filedocumented in this encounter Care Teams Health Diagnostics Teacher Relationship Specialty Start Date End Date Birgit Keyes MD [address] [place] [address] PCP - General Family Medicine 11/29/20 [facility] 02/07/24 documented as of this encounter
--- OUTSIDE RECORDS SUMMARY | 2024-06-30 15:25 | XMS_ITS | Clinical Summary ---
Author Organization [employer] Address [address] [place] [address] [address] [place] [address] Care Team Providers Care Surface Miner Name Role Phone Birgit Keyes MD Primary Care Provider [phone] Allergies Active Allergy Reactions Criticality Noted Date Comments Rosuvastatin Headache Low 04/22/2010 Medications ammonium lactate (Amlactin) 12 % cream APPLY TO THE AFFECTED AREA(S) ONCE DAILY 022 Active Blood Glucose Monitoring Suppl (ONE TOUCH ULTRA 2) w/Device kit 023 Active Alcohol Swabs (Alcohol Prep) 70 % pads USE TWO DAILY 023 Active aspirin 81 MG chewable tablet aspirin 81 mg chewable tablet TAKE 1 TABLET BY MOUTH EVERY MORNING mastique Active clotrimazole (Lotrimin) 1 % cream clotrimazole 1 % topical cream Active nitroglycerin (Nitrostat) 0.4 MG SL tablet Take 1 tab po q 5 min x 3 prn chest pain. If pain persistas after 3 tabs, call 911. 100 tablet 023 Active cyanocobalamin (Vitamin B-12) 1000 MCG tablet TAKE ONE TABLET EVERY MORNING 120 tablet 3 024 Active atorvastatin (Lipitor) 40 MG tablet TAKE ONE TABLET EVERY NIGHT AT BEDTIME 90 tablet 3 024 Active divalproex (Depakote) 500 MG EC tabletIndicatio ns:Mood disorder (CMS/HCC) TAKE ONE TABLET TWICE DAILY IN THE MORNING AND AT BEDTIME 180 tablet 2 024 Active metFORMIN (Glucophage) 500 MG tablet TAKE ONE TABLET IN THE MORNING AND EVENING 180 tablet 1 024 Active Lancets (OneTouch Delica Plus [id number]) [facility] TEST BLOOD SUGAR TWICE DAILY 100 each 11 Active QUEtiapine (SEROquel) 25 MG tabletIndicatio ns:Severe dementia with other behavioral disturbance, unspecified dementia type (CMS/HCC) TAKE ONE TABLET TWICE DAILY IN THE MORNING AND AT BEDTIME NEEDED AGITATION 60 tablet 5 Active melatonin 5 MG tablet TAKE ONE TABLET EVERY NIGHT AT BEDTIME NEEDED 90 tablet 1 024 Active finasteride (Proscar) 5 MG tablet TAKE ONE TABLET EVERY MORNING 90 tablet 1 Active metoprolol succinate XL (Toprol-XL) 50 MG 24 hr tablet TAKE ONE TABLET EVERY MORNING 90 tablet 1 Active tamsulosin (Flomax) 0.4 MG 24 hr capsule TAKE ONE CAPSULE EVERY MORNING 90 capsule 1 Active Januvia 50 MG tablet TAKE ONE TABLET EVERY MORNING 90 tablet 1 Active acetaminophen (Tylenol 8 Hour) 650 MG ER tablet Take 1 tablet (650 mg) by mouth every 8 (eight) hours if needed for mild pain. Do not crush, chew, or split. 90 tablet 1 Active senna-docusate sodium (Senokot-S) 8.6-50 MG tabletIndicatio ns:Constipation , unspecified constipation type Take 2 tablets by mouth if needed at bedtime for constipation. 60 tablet 1 Active polyethylene glycol, PEG, 3350 (MiraLax) 17 GM/SCOOP powderIndicatio ns:Constipation , unspecified constipation type Take 17 g by mouth Once per day. 527 g 2 024 Active Eliquis 5 MG tabletIndicatio ns:Other acute pulmonary embolism, unspecified whether acute cor pulmonale present (CMS/HCC) TAKE ONE TABLET IN THE MORNING AND EVENING 180 tablet 2 025 Active Multiple Vitamin (Multivitamin) tabletIndicatio ns:Mood disorder (CMS/HCC) TAKE ONE TABLET EVERY MORNING WITH FOOD 90 tablet 1 025 Active omeprazole (PriLOSEC) [address] capsuleIndicati ons:Gastroesoph ageal reflux disease, unspecified whether esophagitis present TAKE ONE CAPSULE EVERY MORNING BEFORE BREAKFAST 90 capsule 1 03/18/2 025 Active ferrous gluconate (Fergon) 324 (37.5 Fe) MG tabletIndicatio ns:Anemia, unspecified type TAKE ONE TABLET EVERY OTHER DAY IN THE MORNING 45 tablet 1 Active isosorbide mononitrate ER (Imdur) 30 MG 24 hr tablet Take 3 tablets (90 mg) by mouth Once per day. Do not crush or chew. 90 tablet 2 025 2024 Active isosorbide mononitrate ER (Imdur) 60 MG 24 hr tabletIndicatio ns:Old myocardial infarction TAKE TWO TABLETS EVERY MORNING 180 tablet 1 024 2024 Discontinued memantine (Namenda) 10 MG tabletIndicatio ns:Dementia with agitation, unspecified dementia severity, unspecified dementia type (CMS/HCC) TAKE ONE TABLET IN THE MORNING AND EVENING 180 tablet 1 024 2024 Discontinued Multiple Vitamin (Multivitamin) tabletIndicatio ns:Mood disorder (CMS/HCC) TAKE ONE TABLET EVERY MORNING WITH FOOD 90 tablet 1 024 2024 Discontinued omeprazole (PriLOSEC) [address] capsuleIndicati ons:Gastroesoph ageal reflux disease, unspecified whether esophagitis present TAKE ONE CAPSULE EVERY MORNING BEFORE BREAKFAST 90 capsule 1 024 2024 Discontinued gabapentin (Neurontin) 100 MG capsuleIndicati ons:Neuropathy TAKE ONE CAPSULE THREE TIMES DAILY IN THE MORNING, EVENING AND BEDTIME 270 capsule 1 024 2024 Discontinued(M ed list cleanup (will not trigger notification to Pharmacy)) amLODIPine (Norvasc) 5 MG tablet Take 5 mg by mouth. 024 2024 Discontinued(M ed list cleanup (will not trigger notification to Pharmacy)) ferrous gluconate (Fergon) 324 (38 Fe) MG tabletIndicatio ns:Anemia, unspecified type Take 1 tablet (324 mg) by mouth every other day. 45 tablet 1 024 2024 Discontinued sertraline (Zoloft) 25 MG tablet TAKE ONE TABLET EVERY MORNING 90 tablet 1 024 03/31/ 2025 Discontinued(M ed list cleanup (will not trigger notification to Pharmacy)) mirtazapine (Remeron) 7.5 MG tabletIndicatio ns:Primary insomnia TAKE ONE TABLET EVERY NIGHT AT BEDTIME 90 tablet 2 025 2024 Discontinued(M ed list cleanup (will not trigger notification to Pharmacy)) isosorbide mononitrate ER (Imdur) 60 MG 24 hr tabletIndicatio ns:Old myocardial infarction TAKE TWO TABLETS EVERY MORNING 180 tablet 1 025 2024 Discontinued(D ose adjustment) memantine (Namenda) 10 MG tabletIndicatio ns:Dementia with agitation, unspecified dementia severity, unspecified dementia type (CMS/HCC) TAKE ONE TABLET IN THE MORNING AND EVENING 180 tablet 1 025 2024 Discontinued(M ed list cleanup (will not trigger notification to Pharmacy)) Active Problems Problem Noted Date Diagnosed Date Closed fracture of lumbar vertebra with routine healing 03/02/2024 Assessment & Plan (03/02/2024 9:51 AM EST): Son reports improvement of symptoms, requested refill for acetaminophen (sent). - reports received home PT but they finished it. Constipation 03/02/2024 Anemia 03/02/2024 Assessment & Plan (03/02/2024 9:52 AM EST): Progressively since 4 yrs ago. Likely due to chronic disease, will start iron supplementation and recheck in 3 months. Labs ordered. 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 The patient is not able to use pull-on products given he is mental incapacity. The patient has the following risk factors for developing incontinence: impaired cognitive function, neurological disorders, impaired mobility, increasing age). Needs diapers, wipes and gloves Impaired mobility and ADLs 04/22/2023 Assessment & Plan (04/23/2023 11:44 AM EST): This patient has a mobility limitation that significantly impairs their ability to participate in one or more mobility-related activities of daily living (toileting, feeding, dressing, grooming & bathing in customary locations in the home). This mobility limitation cannot be sufficiently resolved by the use of an appropriately fitted cane or walker.Patient has decreased upper extremity strength, hence is not able to meet his needs with a manual wheelchair. 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 Power mobility device is necessary in the home to get to (MRADLs). Patient has sufficient strength and postural stability to operate a scooter. Patient is able to operate scooter tiller Patient will be referred to PT/OT clinic for [id number] examination, and after evaluation by PT/OT will order a power mobility device. Requested nurses to contact [employer] sales manager to requesting at home PT evaluation Retention of urine 10/14/2022 04/22/2023 Complete atrioventricular block 07/16/2022 04/22/2023 Overview (04/22/2023): s/p pacer Benign prostatic hyperplasia with urinary obstru ction 07/16/2022 04/22/2023 Acute non-ST segment elevation myocardial infarc tion 07/16/2022 04/22/2023 Hypoparathyroidism 07/16/2022 04/22/2023 Recurrent falls 07/16/2022 04/22/2023 GERD (gastroesophageal reflux disease) 3 Class 1 obesity 05/25/2022 Routine physical examination 05/25/2022 Attic perforation of tympanic membrane of left e ar 05/25/2022 Impacted cerumen of right ear 05/25/2022 Thyroid nodule 04/15/2022 Assessment & Plan (04/15/2022 3:38 PM EST): Pt had thyroid nodule found on CT. Will send for ultrasound. Neuropathy 04/15/2022 Severe dementia 04/15/2022 Assessment & Plan (04/15/2022 3:42 PM EST): Patient with agitation. Has upcoming appointment with neurology, but will benefit from seeing Geriatric psychologist. Son will call to schedule appointment. For now will use seroquel for agitation. Cyst of epididymis 04/15/2022 Assessment & Plan (04/15/2022 3:44 PM EST): R complex epididymis head cyst and epididymititis. Will benefit from eval from urology. Referral placed. Acute pulmonary embolism 04/15/2022 Assessment & Plan (04/15/2022 3:44 PM EST): Patient sp provoked PE 2/2 COVID, will do 6 months of anti-coagulant. 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 Reviewed documenation from HDF. Cont current regimen. Will check yearly DM screening labs. Target < 7.5% given advanced age, fragility and dementia. Followup 4 months Assessment & Plan (11/22/2023 3:33 PM EDT): Continue on current medications. Ordering lab work for recheck. Assessment & Plan (04/23/2023 11:49 AM EST): Controlled. Cont with current regimen, given age and co-morbid conditions. Target < 8.5% Assessment & Plan (04/15/2022 3:41 PM EST): POC a1c 7% Glucose reading of 160mg/dL will cont current treatment. Encouraged diet. Gout 11/27/2011 Hyperlipidemia 11/27/2011 Obstructive sleep apnea syndrome 11/27/2011 Hypertension 11/27/2011 Assessment & Plan (04/30/2023 11:02 AM EST): At target, discontinue amlodipine due to side effects. Assessment & Plan (05/25/2022 6:13 PM EST): Elevated BP in visit, previously well controlled and per family controlled at home, will f/u in 6-8 weeks. Primary hyperparathyroidism 11/27/2011 Atherosclerosis of coronary artery 08/13/2011 Cataract 08/13/2011 Status post four vessel coronary artery bypass 0 07/13/2011 Dyslipidemia 07/13/2011 Encounters Date Type Department Care Team Description 06/30/2024 1:30 PM EDT Office Visit [facility] [address] [place] [address] Aramis Simmons MD [place] (acute kidney injury) ([facility]) (Primary Dx); Primary hypertension; Pyelonephritis 06/30/2024 Travel 06/26/2024 Orders Only [facility] [address] [place] [address] Mia Montes De Oca NP 06/23/[address] [facility] [address] [place] [address] Birgit Keyes MD 06/22/[address] [facility] [address] [place] [address] Birgit Keyes MD Medication Question 06/20/[address] [facility] [address] [place] [address] Birgit Keyes MD Transition Of Care (Tcm) (HDF- Unscheduled SECOND LVM) 06/19/[address] [facility] [address] [place] [address] Birgit Keyes MD Transition Of Care (Tcm) (HDF- Unscheduled second LVM) 06/19/2024 Patient Outreach [facility] [address] [place] [phone] Birgit Keyes MD 06/19/[address] [facility] [address] [place] [address] Birgit Keyes MD Transition Of Care (Tcm) (HDF- Unscheduled LVM) 06/19/2024 Telephone [facility] [address] [place] [phone] Birgit Keyes MD Hospital Follow-up 06/13/[address] [facility] [address] [place] [address] Birgit Keyes MD Old myocardial infarction; Dementia with agitation, unspecified dementia severity, unspecified dementia type (CMS/HCC); Mood disorder (CMS/HCC); Gastroesophageal reflux disease, unspecified whether esophagitis present; Anemia, unspecified type 05/26/[address] [facility] [address] [place] [address] Birgit Keyes MD ER Follow-up 05/12/[address] [facility] [address] [place] [address] Birgit Keyes MD Primary insomnia; Other acute pulmonary embolism, unspecified whether acute cor pulmonale present (CMS/HCC) from Last 3 Months Immunizations Name Administration Dates Next Due Influenza High-dose Quadriva lent Preservative Free 02/27/2021,01/16/2021,05/26/2020,03/01 Influenza Quadrivalent Adjuvanted 01/20/2022 Influenza injectable quadriv alent IIV4 with preservative 03/19/2016,12/24/2014 Influenza injectable quadriv alent preservative free 03/07/2018,12/30/2016 Influenza, High Dose Seasona l, Preservative Free 05/18/2019 Influenza, IIV3, injectable 01/16/2021,1 05/02/2019,05/18/2019,03/07,12/30/2016,03/19/2016,12/24/2014 ,02/16/2014 Influenza, Split (incl. michael fied surface antigen) 2012,11/27/2011 Influenza, Unspecified 01/20/2022 Casa SARS-CoV-2 Vaccination 07/16/2021 Pneumococcal Conjugate PCV 13 05/26/2020, 015 Pneumococcal Polysaccharide PPSV23 10/27/2013,,05/03/2009 Tdap 11/22/2023,11/23/2012 Zoster, Recombinant 03/01/2020 Zoster, live 05/15/2014 Social History Tobacco Use Types Packs/Day Years Used Date Smoking Tobacco: Never Smokeless Tobacco: Never Tobacco Cessation:Counseling Given: Not Answered Housing Stability Answer Date Recorded What is your housing situation today? I have eduardo owen 01/14/[address] you li [...] not to disclose 2021 10:20 AM EDT Last Filed Vital Signs Vital Sign Reading Time Taken Comments Blood Pressure 164/84 06/30/2024 1:05 PM EDT Pulse 82 06/30/2024 1:05 PM EDT Temperature 36.6 ??C (97.8 ??F) 06/30/2024 1:05 PM ED T Respiratory Rate 14 06/30/2024 1:05 PM EDT Oxygen Saturation 97% 06/30/2024 1:05 PM EDT Inhaled Oxygen Concentration - - Weight 61.7 kg (136 lb) 06/30/2024 1:05 PM EDT Height 152.4 cm (5') 06/30/2024 1:05 PM EDT Body Mass Index 26.56 06/30/2024 1:05 PM EDT Plan of Treatment Health Maintenance Due Date Last Done Comments Depression Screening 1942 Eye Exam 1952 Diabetes: Urine Protein Screening 1961 RSV Patients and Patients Aged 60 years or older (1 - 1-dose 75+ series) 2017 Diabetes: Foot Exam 11/11/2022 COVID-19 Vaccine ( season) 2023 07/16/2021 Influenza Vaccine (#1) 2023 , 01/20/2022, 01/20/2022, Additional history exists Lipid Panel 04/22/2024 04/22/2023, 03/01/2020 Diabetes: Hemoglobin A1C 05/24/2024 024, 04/22/2023, 03/01/2020, Additional history exists SDOH Screening 06/01/2024 06/02/2023 Tobacco Screening 11/21/2024 11/22/2023 Zoster Vaccines (3 of 3) 11/21/2024 03/01/2020, 04/29 Postponed from 04/26/2020 (Patient Refused) Alcohol/Substance Use Screening 03/02/2025 03/02/2024 DTaP/Tdap/Td Vaccines (3 - Td or Tdap) 11/21/2033 11/22/2023, 11/23/2012 Pneumococcal Vaccine: 50+ Years Completed 05/26/2020, 02/07/2015, 10/27/2013, Additional history exists HIB Vaccines Aged Out No longer eligi [...] patient's age to complete this topic Meningococcal Vaccine Aged Out No kemar debbie eligible based on patient's age to complete this topic RSV under 20 months Aged Out No longe r eligible based on patient's age to complete this topic Rotavirus Vaccines Aged Out No longer eligible based on patient's age to complete this topic Procedures Procedure Name Priority Date/Time Associated Diagnosis Comments BASIC METABOLIC PANEL Routine 06/30/2024 1:34 PM EDT [place] (acute kidney injury) ([facility]) POCT GLYCATED HEMOGLOBIN, TOTAL Routine 11/22/2023 3:04 PM EDT Type 2 diabetes mellitus without complication, without long-term current use of insulin ([facility]) LIPID PANEL, STANDARD Routine 04/22/2023 11:16 AM EST Type 2 diabetes mellitus without complication, without long-term current use of insulin ([facility]) from Last 3 Months or Most Recently Relevant to Health Maintenance Results * (ABNORMAL) Basic Metabolic Panel (06/30/2024 1:34 PM EDT) Sodium 143 135 - 145 mmol/L [facility] Potassium 5.1 3.3 - 5.1 mmol/L [facility] Chloride 111(H) 96 - 108 mmol/L [facility] Carbon Dioxide 25 22 - 29 mmol/L [facility] Anion Gap 12 12 - 20 [facility] Urea Nitrogen (BUN) 28(H) 9 - 16 mg/dL [facility] Creatinine, Serum 1.64(H) 0.5 - 1.4 mg/dL [facility] Estimated Glomerular Filt Rate 41 [facility] Comment:Chronic Kidney Disea se: Estimated GFR < 60 mL/min/1.86m0Yuwgfb Kidney Disease: Estimated GFR < 15 mL/min/1.73m2 Glucose 137(H) 60 - 115 mg/dL [facility] Calcium 9.7 8.4 - 10.2 mg/dL [facility] Blood Venous blood specimen / Unknown 06/30/2024 1:34 PM EDT 06/30/2024 1:57 PM EDT us Aramis Simmons MD LAB BLOOD ORDERABLES Final Result [facility] [address] [place] [phone] * (ABNORMAL) POCT HGB A1C (11/22/2023 3:04 PM EDT) Hemoglobin A1C 6.8(A) 4.0 - 6.0 % QC Media Lot # [id number] Lot# Expiration Date ,[id number] Blood 11/22/2023 3:04 PM EDT us Birgit Keyes MD POINT OF CARE TEST ENTER/EDIT ORDERABLES Final Result * (ABNORMAL) Lipid Panel, Standard (04/22/2023 11:16 AM EST) Triglycerides 216(H) <150 mg/dL [facility] Comment:Desirable Triglyceri de: less than 150 mg/dLBorderline High Triglyceride 150-199 mg/dLHigh Triglyceride: 200-499 mg/dLVery High Triglyceride: greater than or equal to 5OO mg/dL Cholesterol 157 <200 mg/dL [facility] Comment:Desirable Cholestero l: less than 200 mg/dLBorderline High Cholesterol: 200-239 mg/dLHigh Cholesterol: greater than 239 mg/dL LDL Cholesterol Calculated 70 <100 mg/dL [facility] Comment:Desirable LDL: less than 100 mg/dLNear Optimal/Above Optimal LDL: 110- 129 mg/dLBorderline High LDL: 130-159 mg/dLHigh LDL: 160-189 mg/dLVery High LDL: greater than or equal to 190 mg/dL HDL Cholesterol 44 >40 mg/dL [facility] Comment:Desirable HDL: great er than 40 mg/dL Note: This HDL assay may give artificially low results in patients with liver disease. Blood Venous blood specimen / Unknown 04/22/2023 11:16 AM EST 04/22/2023 2:25 PM EST us Birgit Keyes MD LAB BLOOD ORDERABLES Final Re sult [facility] [address] [place] [phone] [phone] from Last 3 Months or Most Recently Relevant to Health Maintenance Insurance - [employer] Care Teams Surface Miner Relationship Specialty Start Date End Date Birgit Keyes MD [address] [place] [phone] PCP - General Family Medicine 11/29/[address] [facility] 02/07/24
--- OUTSIDE RECORDS SUMMARY | 2024-06-30 15:25 | XMS_ITS | Clinical Summary ---
Author Organization [facility] Facility Address [address] [place] [id number] Care Team Providers Care Chimney Sweeper Name Role Phone Unavailable Primary Care Provider Unavailabl e Allergies Active Allergy Reactions Criticality Noted Date Comments Rosuvastatin Other (see comments) 05/29/2020 Medications aspirin (ST PAUL) 81 MG EC tablet Take 1 tablet by mouth 1 (one) time each day Active atorvastatin (LIPITOR) 40 MG tablet Take 1 tablet by mouth 1 (one) time each day 1 Active divalproex (DEPAKOTE) 500 MG EC tablet Take 1 tablet by mouth 1 (one) time each day 1 Active Trulicity 0.75 MG/0.5ML solution pen-injector 1 Active finasteride (PROSCAR) 5 MG tablet Take 1 tablet by mouth 1 (one) time each day 1 Active gabapentin (NEURONTIN) 100 MG capsule Take 1 capsule by mouth 3 (three) times a day Active Tresiba FlexTouch 100 UNIT/ML injection INJECT 40 UNITS SUBCUTANEOUSLY ONCE DAILY 1 Active isosorbide dinitrate (ISORDIL) 20 MG tablet Take 2.25 tablets by mouth twice a day 1 Active memantine (NAMENDA) 10 MG tablet Take 1 tablet by mouth twice a day 1 Active metFORMIN XR (GLUCOPHAGE-XR ) 750 MG 24 hr tablet Take 2 tablets by mouth 1 (one) time each day Active metoprolol succinate XL (TOPROL-XL) 100 MG 24 hr tablet Take 1 tablet by mouth 1 (one) time each day Active Multiple Vitamin (Multivitamin) tablet Take 1 tablet by mouth 1 (one) time each day 1 Active NIFEdipine CC (ADALAT CC) 30 MG 24 hr tablet Take 1 tablet by mouth 1 (one) time each day 1 Active omeprazole (PriLOSEC) [address] capsule Take 1 capsule by mouth 1 (one) time each day Active QUEtiapine fumarate ER (SEROquel XR) 50 MG 24 hr tablet Take 1 tablet by mouth 1 (one) time each day 1 Active tamsulosin (FLOMAX) 0.4 MG 24 hr capsule Take 1 capsule by mouth 1 (one) time each day 1 Active SM Arthritis Pain Reliever 650 MG 8 hr tablet TAKE 1 TABLET BY MOUTH EVERY 8 HOURS NEEDED. 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 12/31/2022 Immunizations Name Administration Dates Next Due Influenza, Quadrivalent, With Preservative 03/16 Pneumococcal Polysaccharide 10/27/2013 Family History Medical History Relation Comments Diabetes Mother Heart disease Mother Hypertension Mother Relation Status Comments Father Mother Social History Tobacco Use Types Packs/Day Years Used Date Smoking Tobacco: Former Smokeless Tobacco: Former Alcohol Use Standard Drinks/Week Comments No 0 (1 standard drink = 0.6 oz pur e alcohol) Sex and Gender Information Value Date Recorded Sex Assigned at Not on file Legal Sex Male 5:09 PM EST Gender Identity Not on file Sexual Orientation Not on file Plan of Treatment Health Maintenance Due Date Last Done Comments Diabetes: Hemoglobin A1C 07/19/2022 Diabetes: Ophthalmology Exam 07/19/2022 Diabetes: Pedal Pulse Checked 07/19/2022 Diabetes: Sensory Foot Exam 07/19/2022 Diabetes: Visual Foot Exam 07/19/2022 Influenza Vaccine (#1) 2023 2, 05/18/2019, 03/07/2018, Additional history exists Pneumococcal Vaccine: 65+ Years Completed 05/26/2020, 02/07/2015, 10/27/2013, Additional history exists Hepatitis B Vaccine Aged Out No longe r eligible based on patient's age to complete this topic Insurance ([id number]) ([id number]) [place] [id number]
--- OUTSIDE RECORDS SUMMARY | 2024-06-30 15:25 | XMS_ITS | Encounter Summary ---
Author Organization [employer] Address [address] [facility] [address] [place] [address] Care Team Providers Care Machining Department Supervisor Name Role Phone Birgit Keyes MD Primary Care Provider [phone] Reason for Visit * Reason Onset Date Comments Hospital Follow-up 06/02/2023 Encounter Details Date Type Department Care Team ([facility] st Contact Info) Description 06/02/2023 Telephone [facility] MEDICINE [address] [place] [address] Birgit Keyes MD [address] [place], [place] [phone] Hospital Follow-up Social History Tobacco Use Types [...] encounter Miscellaneous Notes * Telephone Encounter - Peggy Argueta - 06/02/2023 9:04 AM EST Tc from pt requesting a HDF appt. Hospital: [facility] Date of admission: 05/21/2023 Discharge date: 05/29/2023 Diagnosed: Chest Pain documented in this encounter Plan of Treatment Not on file documented as of this encounter Visit Diagnoses Not on filedocumented in this encounter Care Teams Machining Department Supervisor Relationship Specialty Start Date End Date Birgit Keyes MD [address] [place] [id number] PCP - General Family Medicine 11/29/20 [facility] 02/07/24 documented as of this encounter
--- OUTSIDE RECORDS SUMMARY | 2024-06-30 15:25 | XMS_ITS | Encounter Summary ---
Author Organization [employer] Address [address] [place] [address] [address] [place] [address] Care Team Providers Care Wine Sales Representative Name Role Phone Birgit Keyes MD Primary Care Provider [phone] Reason for Visit * Reason Onset Date Comments FYI 01/03/2024 Encounter Details Date Type Department Care Team ([facility] Contact Info) Description 01/03/2024 Telephone [facility] MED & PEDS [address] [place], [place] [phone] Birgit Keyes MD [address] [place] [address] FYI Social History Tobacco Use Types Packs/Day [...] encounter Miscellaneous Notes * Telephone Encounter - Cynthia Mitchell - 01/03/2024 10:06 AM EDT Tc from Birgit with [facility] calling to inform pt has meet his occupational therapy and will be getting discharged this week from services. documented in this encounter Plan of Treatment Not on file documented as of this encounter Visit Diagnoses Not on filedocumented in this encounter Care Teams Wine Sales Representative Relationship Specialty Start Date End Date Birgit Keyes MD [address] [place] [id number] PCP - General Family Medicine 11/29/20 [facility] 02/07/24 documented as of this encounter
--- OUTSIDE RECORDS SUMMARY | 2024-06-30 15:25 | XMS_ITS | Data Portability ---
Author Organization [facility], Main Office Address [address] [place] [address] Care Team Providers Care Lead Atg Developer Name Role Phone KAYLENE KENDRICK - 2ND FLOOR OTHER Assessment No assessment recorded. Plan of Treatment Reminders Order Date Submit Date Provider Last Modified By Organization Details Last Modified Time Details Appointments None record ed. Lab None record ed. Referral None record ed. Procedures None record ed. Surgeries None record ed. Imaging None record ed. Medication Orders None record ed. Patient TargetsNo targets recorded. Patient InstructionsNo instructions recorded. Reason for Referral None Reported. Problems Name Problem SNOMED Code Status Onset Date Resolution Date Notes Provider Name and Address Organization Details Recorded Time Recurrent falls 528949394 Active 2022 MANDY CAZARES NP [address], [address], [place], [address], [facility] 15:13:26 Acute kidney injury 73555765 Active 2022 MANDY CAZARES NP [address], [address], [place], [address], [facility] 15:13:33 Dementia 63507035 Active 2022 MANDY CAZARES NP [address], [address], [place], [address], [facility] 15:13:42 Heart failure 81964082 Active 2022 MANDY CAZARES NP [address], [address], [place], [address], [facility] 15:13:53 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 MANDY CAZARES NP [address], [address], [place], [address], [facility] 15:14:13 History of pulmonary embolus 991548575 Active 2022 MANDY CAZARES NP [address], [address], [place], [address], [facility] 3 15:14:24 Coronary arteriosclero sis 55661613 Active 2022 s/p CABG x 4 MANDY CAZARES NP [address], [address], [place], [address], [facility] 3 15:14:35 Acute non-ST segment elevation myocardial infarction 253401077 Active 2022 MANDY CAZARES NP [address], [address], [place], [address], [facility] 3 15:14:47 Urinary tract infectious disease 47725891 Active 2022 MANDY CAZARES NP [address], [address], [place], [address], [facility] 3 15:14:57 Type 2 diabetes mellitus without complication 634806656 Active 2022 MANDY CAZARES NP [address], [address], [place], [address], [facility] 3 15:15:22 Hyperlipidemi a 34491816 Active 2022 MANDY CAZARES NP [address], [address], [place], [address], [facility] 3 15:15:30 Hypertensive disorder 53333651 Active 2022 MANDY CAZARES NP [address], [address], [place], [address], [facility] 3 15:15:36 Orchitis 740809777 Active 2022 recent hosp. MADNY CAZARES NP [address], [address], [place], [address], [facility] 3 15:16:54 Depressive disorder 96220164 Active 2022 MANDY CAZARES NP [address], [address], [place], [address], [facility] 3 15:17:11 Gastroesophag eal reflux disease without esophagitis 178756949 Active 2022 MANDY CAZARES NP [address], [address], [place], [address], [facility] 15:17:20 Hypoparathyro idism 77692899 Active 2022 MANDY CAZARES NP [address], [address], [place], [address], [facility] 3 15:17:32 Chronic kidney disease stage 2 821835451 Active 2022 MANDY CAZARES NP [address], [address], [place], [address], [facility] 3 15:23:25 Benign prostatic hyperplasia with outflow obstruction 927139698 Active 2022 MANDY CAZARES NP [address], [address], [place], [address], [facility] 3 15:42:12 Anemia 565822808 Active 2022 MANDY CAZARES NP [address], [address], [place], [address], [facility] 3 15:59:36 Constipation 58799702 Active 2022 MANDY CAZARES NP [address], [address], [place], [address], [facility] 3 16:00:55 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 Active 2022 MANDY CAZARES NP [address], [address], [place], [address], [facility] 3 16:02:05 Chest pain 01429724 Active 2022 MANDY CAZARES NP [address], [address], [place], [address], [facility] 3 16:16:01 Retention of urine 375265767 Active 2022 MANDY CAZARES NP [address], [address], [place], [address], [facility] 3 16:16:32 Chronic kidney disease 157764931 Active 2022 MANDY CAZARES NP [address] [facility], [facility] [address], [place], [address], [facility] 3 16:17:08 Seizure 65330127 Active 2022 MANDY CAZARES NP [address], [facility] [address], [place], [address], [facility] 3 16:19:10 Lnint-hi-yrsz brandon renal failure 885055109 Active 2022 Lorelei Moon MD [address], [facility] [address], [place], [address], [facility] 3 12:13:23 Delirium 7393810 Active 2022 Apryl Metcalf NP [address] [place] [address], [facility] [address], [place], [address], [facility] 3 14:47:17 Problem Notes None recorded. Medical Equipment None Reported. Allergies Allergen ID Allergen Name Allergen Category Reaction Reaction Severity Criticality Documentation Date Start Date Code Code System Note Provider Name and Address Organization Details Recorded Time 84605 rosuvasta tin medicatio n Not available Not available Not available 07/16/2022 38617 2 RxNorm Not Available Not Available Not Available Medications Not known to be on any medication Vitals Date Recorded Body height Body mass index (BMI) Body weight Heart rate Respiratory rate Body temperature Oxygen saturation Oxygen saturation in Arterial blood by Pulse oximetry Systolic blood pressure Diastolic blood pressure Provider Name and Address Organization Details Last Updated DateTime 3 167.64 cm 22.8 kg/m2 51440.5 2 g 88 /min 18 /min 98 [degF] 98 % 98 % 142 mm[Hg] 78 mm[Hg] Apryl Metcalf NP [address] [facility], [facility] [address], [place], [address], [facility] 3 13:48:31 Date Recorded Body height Body mass index (BMI) Body weight Heart rate Respiratory rate Body temperature Oxygen saturation Oxygen saturation in Arterial blood by Pulse oximetry Systolic blood pressure Diastolic blood pressure Provider Name and Address Organization Details Last Updated DateTime 3 167.64 cm 22.3 kg/m2 63213.7 5 g 78 /min 18 /min 98.5 [degF] 98 % 98 % 140 mm[Hg] 82 mm[Hg] Apryl Metcalf NP [address] [facility], [address], [place], [address], [facility] 3 14:13:37 Date Recorded Body height Systolic blood pressure Diastolic blood pressure Provider Name and Address Organization Details Last Updated DateTime 03/03/2023 167.64 cm 157 mm[Hg] 86 mm[Hg] Antwan Pedroza MD [address] [facility] [facility], [address], [place], [address], [facility] 03/03/2023 12:06:24 Date Recorded Body height Body mass index (BMI) Body weight Heart rate Respiratory rate Body temperature Oxygen saturation Oxygen saturation in Arterial blood by Pulse oximetry Systolic blood pressure Diastolic blood pressure Provider Name and Address Organization Details Last Updated DateTime 3 167.64 cm 22.3 kg/m2 63489.7 5 g 77 /min 18 /min 97.3 [degF] 96 % 96 % 157 mm[Hg] 86 mm[Hg] Apryl Metcalf NP [address] [facility] [facility], [address], [place], [address], [facility] 3 10:23:31 Date Recorded Body height Body mass index (BMI) Body weight Heart rate Respiratory rate Body temperature Oxygen saturation Oxygen saturation in Arterial blood by Pulse oximetry Systolic blood pressure Diastolic blood pressure Provider Name and Address Organization Details Last Updated DateTime 3 167.64 cm 22.3 kg/m2 10490.7 5 g 82 /min 18 /min 97.6 [degF] 97 % 97 % 157 mm[Hg] 86 mm[Hg] Apryl Metcalf NP [address] [facility], [address], [place], [address], [facility] 3 12:15:40 Social History Question Answer Notes LastModified by Organizat ion Details LastModified Time Tobacco Smoking Status Former Smoker remote MANDY CAZARES NP [address], [address], [place], [address], [facility] 07/16/2022 15:06:07 Do You Have An Advance Directive? Yes Information not available 10/19/2022 What Is Your Level Of Alcohol Consumption? None EtOH, Sober For ~30 Yrs [email or web address] Information not available 03/01/2023 What Is Your Code Status? Full Code Information not available 07/16/2022 Where Do You Live? SingleLevelHouse Lives With Son And DIL Information not available 10/19/2022 Legal Guardian? No Informati on not available 07/17/2022 Do You Have A Medical Power Of Hr Clerk? Yes Invoked [email or web address] Information not available 10/14/2022 What Was The Date Of Your Most Recent Tobacco Screening? 10/14/2022 Information not available 10/14/2022 Do You Have An Out Of Hospital DNR? No Information not available 07/20/2022 Do You Use Any Illicit Or Recreational Drugs? No [email or web address] Information not available 07/16/2022 Has Tobacco Cessation Counseling Been Provided? No N/a As Pt No Longer Smokes. Information not available 10/19/2022 Do You Or Have You Ever Used Any Other Forms Of Tobacco Or Nicotine? No [email or web address] Information not available 07/16/2022 Sex: Male Functional Status None recorded. Mental Status None recorded. Family History Relationship Description Onset Age of this Age Resolved Age Notes LastModified by Organization Details LastModified Time Mother Heart disease Not available 2022 15:05:29 Notes:N/C Medical History No medical history recorded. Immunizations Vaccine Type Date Status Note Provider Nam e and Address Organization Details Recorded Time pneumococcal polysaccharide PPV23 4 completed Emi Lopez [facility] 07/22/2022 14:47:11 Pneumococcal conjugate PCV 13 1 [facility] 14:47:27 COVID-19 vaccine, vector-nr, rS-Ad26, PF, 0.5 mL 2 [facility] 14:48:00 zoster live 5 completed Emi arvizu, [facility] 07/22/2022 14:50:35 Influenza, adjuvanted, quadrivalent, PF 2 completed Birgit Villaemily arvizu, [facility] 05/11/2023 10:25:35 Influenza, adjuvanted, quadrivalent, PF 3 completed Birgit Ren[place] arvizu, [facility] 05/27/2023 13:29:30 Past Encounters Encounter ID Performer Location Encounter Start Date Encounter Closed Date Diagnosis/Indication Diagnosis SNOMED-CT Code Diagnosis ICD10 Code Diagnosis Note [id number] MANDY CAZARES NP [address] [address] 07/16/2022 15:10:29 07/21/2022 11:23:13 Acute kidney injury 30862642 N17.9 Improved in hosp.Cr. 1.8 -> 1.3Baselin e Creat 1.1, 1.2Foley in due to retentionM onitor BMPMaintai n fluids Chronic ki dney disease stage 2 529487527 N18.2 Maintain fluidsAvoi d nephrotoxi csMonitor BMP Benign pro static hyperplasia with outflow obstruction 003065722 N40.1 Alexandra placed - attempt voiding trial in a few daysContin ue flomax 0.4 mg and proscar 5 mg dailyMaint ain fluidsRefe r to if fails voiding trialMonit or Orchitis 713660093 N45.2 recent hosp. for thisOn abx.Monito r status for change Recurrent falls 00317883 2 R29.6 And deconditio ningPT OT eval and tx.Goal is to return home. Urinary tr act infectious disease 22964632 N39.0 E. FaecalisNo w on amoxil to complete tx - 500 mg tid x 9 daysFoley in for retentionM onitor labs, VS, sx. for change Coronary arteriosclerosis 88556651 I25.10 Recent NSTEMIAnd anginaSeen by Cards, next follow up 08/[address] Kelly craven meds:ASA 81 mg dailyatorv astatin 40 mg dailytopro l XL 50 mg dailyPRN SL NTGMonitor CP status, VS, labsUpdate Cardiology with concernsCa rdiac diet Heart failure 69830102 I 50.9 See cardiac meds - toprol XL 50 mg daily, not on diureticsM onitor CP status, VS for decompensa tion Hypertensive disorder 38 084623 I10 toprol XL 50 mg dailymonit or VS Hyperlipidemia 10516244 E78.5 continue atorvastat in 40 mg daily Complete atrioventricular block 01933793 I44.2 s/p pacer 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 420557011 E11.9 metformin 500 mg bidCarb control dietBS bid x 1 wk, then q wk and prn Dementia 18443503 F03.92 Continue:D epakote ER 500 mg bidMemanti ne 10 mg bidRemeron 7.5 mg q HSSeroquel 50 mg bid prn x 14 days - monitor use and effectZolo ft 25 mg dailyRefer to psych prnMonitor mood, behaviorsM onitor need to invoke HCP Depressive disorder 3548 9007 F32.A Remeron 7.5 mg q HSZoloft 25 mg dailyMonit or mood, behaviorsR efer to psych prn Gastroesop hageal reflux disease without esophagitis 263278133 K21.9 Continue omeprazole 20 mg dailyMonit or GI sx. History of pulmonary embolus 823112622 Z86.711 apixaban 5 mg bidmonitor resp. status, VS, labs, active bleeding Hypoparathyroidism 85384 004 E20.9 not on meds at this time. Anemia 816790348 D64.9 Continue B 12 1000 mcg daily, Fe SO4 325 mg dailyMonit or CBC Constipation 34823725 K5 9.00 colace 100 mg bidsenna 2 tabs dailymiral ax 17 gm daily prn Peripheral nerve disease 553921770 G64 continue gabapentin 100 mg tid [id number] [facility] [address] 07/17/2022 17:18:19 07/21/2022 11:47:05 Acute kidney injury 23112619 N17.8 Back to baseline.C ontinue to avoid nephrotoxi c meds as able.Monit or labs.Renal consult prn. Urinary tr act infectious disease 17903982 N30.00 Continue Amox 500 mg TID until 07/25Monito r for sxs. Chronic ki dney disease stage 2 072991968 N18.2 As above. Benign pro static hyperplasia with outflow obstruction 912597985 N40.1 With retention inpt.Colton nue ibrahima with plan for voiding trial after off abx.Contin ue tamsulosin 0.4 mg qd and finasterid e 5 mg qd.F/U with uro if fails voiding trial. Constipation 39238477 K5 9.09 Continue bowel meds as ordered.Mo nitor bowel function. Orchitis 061120864 N45.2 Hx of, but per inpt eval has resolved.M onitor. Recurrent falls 09991823 2 R29.6 Very deconditio oscar.Needs PT/OT for strengthen ing, balance, gait training, safety and function.C ontinue fall precaution s.Monitor for safety. Coronary arteriosclerosis 76976849 I25.10 As above. Heart failure 25643889 I 50.42 Appears euvolemic. Continue meds as above.Kade tor resp. status, fluid status, wts and labs. Hypertensive disorder 38 088043 I10 SBP remains borderline to high. Likely due to discomfort .Continue metoprolol 50 mg qd.Monitor BP and labs and consider med adjustment s if SBP remains high. Hyperlipidemia 74955387 E78.49 Continue atorvastat in 40 mg qd.Monitor as outpt. Complete atrioventricular block 61959242 I44.2 HR in good control with pacemaker. Monitor HR.F/U with cardio as planned. Anemia 586584974 D64.89 Stable.Con tinue B 12 1000 mcg qd and FeSO4 325 mg qd.Monitor CBC 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 512147401 E11.9 Has not been being monitored since here. With HgA1C of 8.8.Will start QID fingerstic ks with SSI. Can d/c if stable.Con tinue metformin 500 mg BID.Adjust meds as needed. Dementia 37119904 F02.B3 Baseline is unclear.Co ntinue Depakote ER 500 mg BID, memantine 10 mg BID, Remeron 7.5 mg qhs, sertraline 25 qd, andSeroque l 50 mg bid prn-reeval after 14 days.Colton nue supportive care, expect decline.HC P invokedMon itor mood and behaviors. Psych consult prn. Depressive disorder 5622 8524 F33.8 Mood seems good today.Cont inue meds as above.Kade tor mood.Psych consult prn. Gastroesop hageal reflux disease without esophagitis 625138753 K21.9 No current sxs.Contin ue omeprazole 20 mg qd.Monitor sxs. History of pulmonary embolus 833220231 Z86.711 Continue apixaban 5 mg BIDMonitor for new sxs. Peripheral nerve disease 694986526 G64 Continue gabapentin 100 mg TID.Monito r sxs. Hypoparathyroidism 80193 004 E20.8 Ca+ currently WNL.Monito r Ca+ and f/u as outpt. Acute non- ST segment elevation myocardial infarction 010013874 I21.4 S/P NSTEMICard io recommende d medical management .Continue ASA 81 mg qd, atorvastat in 40 mg qd, metoprolol XL 50 mg qd, Eliquis 5 mg BID and SL NTG prn.Monito r sxs and f/u with cardio as planned on 08/06. [id number] Hilary Rivera MD [address] [address] 07/22/2022 08:08:59 07/24/2022 14:43:08 Acute non-ST segment elevation myocardial infarction 636768482 I21.4 ASA 81 mg dailyatorv astatin 40 mg dailyMTG 0.4 mg SL prnmetopro lol ER 50 mg dailywill monitor Benign pro static hyperplasia with outflow obstruction 505793565 N40.1 Alexandra catheterta msulosin 0.4 mg dailyfinas teride 5 mg dailystart voiding trial:d/c Alexandra; check PVR qshift x 2 days; str cath if PVR >400ccwill monitor Dementia 95764048 F02.B3 will monitor and support as he continues to adjust to facilityme mantine 10 mg bidsee meds for mixed anxiety disorder Mixed anxi ety and depressive disorder 619930682 F41.8 quetiapine 50 mg q12h prnsertral ine 25 mg dailydival proex 500 mg bidgabapen tin 100 mg tidmirtaza pine 7.5 mg at hswill monitor History of pulmonary embolus 513946623 Z86.711 apixaban 5 mg bidwill monitor Essential hypertension 69550085 I10 metoprolol ER 50 mg dailywill monitor Type 2 alexis betes mellitus 45198246 E11.22 Humalog per sliding scalemetfo rmin 500 mg bidwill monitor Urinary tr act infectious disease 36464657 N30.00 amoxicilli n 500 mg tid through 07/25/22wil l monitor [id number] TRIXIE Farr [facility] [address] [address] 07/28/2022 06:17:14 08/05/2022 08:25:45 Acute non-ST segment elevation myocardial infarction 323340031 I21.4 stableASA 81 mg qdatorvast atin 40 mg qdNTG 0.4 mg SL prnmetopro lol ER 50 mg qdmonitor for chest pain, sob Benign pro static hyperplasia with outflow obstruction 572945687 N40.1 voiding normally per nursetamsu losin 0.4 mg qdfinaster roberto 5 mg qdmonitor for retention Dementia 40290657 F02.B3 supportive careexpect declinemem antine 10 mg bidmonitor mood, see meds below Mixed anxi ety and depressive disorder 982350776 F41.8 dc quetiapine 50 mg q12h prn as pt is not allowed to have prn antipsycho tic in [facility] without scheduled dosesertra line 25 mg qddivalpro ex 500 mg bidgabapen tin 100 mg tidmirtaza pine 7.5 mg qhsmonitor mood, behaviors History of pulmonary embolus 862741201 Z86.711 apixaban 5 mg bidmonitor for bleeding Essential hypertension 65634505 I10 bp normalmeto prolol ER 50 mg qdmonitor bp and adjust dose prn Type 2 alexis betes mellitus 44483614 E11.22 pt off BS checks, was 100s to occasional 200smetfor min 500 mg bidconside r A1c if pt remains LTC Urinary tr act infectious disease 52106457 N30.00 resolvedmo nitor for sxs [id number] MANDY CAZARES NP [facility] [address] [address] 07/30/2022 12:46:25 08/05/2022 09:33:30 Acute kidney injury 42066857 N17.9 Improved in hosp.Cr. 1.8 -> 1.3 ->1.22Base line Creat 1.1, 1.2Foley placed in hosp. due to retention, removed here, now reported to be voiding well without s/s retentionM onitor BMP as outpt.Main tain fluids Urinary tr act infectious disease 50339426 N39.0 E. FaecalisAm oxil 500 mg tid x 9 days now completeMo nitor labs, VS, sx. for change as outpt. Chronic ki dney disease stage 2 773728207 N18.2 Maintain fluidsAvoi d nephrotoxi csMonitor BMP as outpt Benign pro static hyperplasia with outflow obstruction 141585415 N40.1 Alexandra placed in hosp. - removed here, voiding spontaneou sly, PVR today 0 ml.Continu e flomax 0.4 mg and proscar 5 mg dailyMaint ain fluidsRefe r to if recurrent sx.Monitor as outpt. Constipation 82049323 K5 9.00 colace 100 mg bidsenna 2 tabs dailymiral ax 17 gm daily prnmonitor bowels as outpt. Orchitis 354545882 N45.2 recent hosp. for thisOn abx.Monito r status for change Recurrent falls 44569163 2 R29.6 And deconditio ningPT OT eval and tx. - meeting goals for d/c home today with services Coronary arteriosclerosis 12909671 I25.10 Recent NSTEMIAnd anginaSeen by Cards, next follow up 08/[address] Kelly craven meds:ASA 81 mg dailyatorv astatin 40 mg dailytopro l XL 50 mg dailyPRN SL NTGMonitor CP status, VS, labsUpdate Cardiology with concernsCa rdiac diet Heart failure 66943147 I 50.9 See cardiac meds - toprol XL 50 mg daily, not on diureticsM onitor CP status, VS for decompensa tion Hypertensive disorder 38 401595 I10 toprol XL 50 mg dailymonit or VS Hyperlipidemia 36952715 E78.5 continue atorvastat in 40 mg daily Complete atrioventricular block 80261790 I44.2 s/p pacer Anemia 827087144 D64.9 Continue B 12 1000 mcg daily, Fe SO4 325 mg dailyMonit or CBC 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 008260287 E11.9 metformin 500 mg bidCarb control [id number] 8.8%, monitor as outpt. Dementia 49396141 F03.92 Continue:D epakote ER 500 mg bidMemanti ne 10 mg bidRemeron 7.5 mg q HSSeroquel 50 mg bid prn x 14 days - minnimal use here, will stop med upon d/c home.Zolof t 25 mg dailyRefer to psych prnMonitor mood, behaviorsM onitor need to invoke HCP Depressive disorder 3548 9007 F32.A Remeron 7.5 mg q HSZoloft 25 mg dailyMonit or mood, behaviorsR efer to psych prn Gastroesop hageal reflux disease without esophagitis 748071208 K21.9 Continue omeprazole 20 mg dailyMonit or GI sx. History of pulmonary embolus 497303000 Z86.711 apixaban 5 mg bidmonitor resp. status, VS, labs, active bleeding Peripheral nerve disease 051478842 G64 continue gabapentin 100 mg tid Hypoparathyroidism 28560 004 E20.9 not on meds at this time.Monit or Ca as outpt. [id number] MANDY CAZARES NP [facility] [address] 10/14/2022 15:40:21 10/20/2022 08:18:37 Chest pain 96816390 R07.9 Non cardiac, resolved.M onitorSL NTG prn in place Acute kidney injury 1466 9001 N17.9 Acute on ChronicImp roved in hosp.Basel ine Creat 1.1, 1.2Foley placed in hosp. due to retention, then removed and reported to be voiding okMonitor BMP q wednesday x 3Maintain fluidsAvoi d nephrotoxi csFollow up with Dr. Palm in 2-3 wks Retention of urine 96855 4002 R33.9 Problemati c at timesRequi red alexandra in the hospital, since removed.Mo nitor voiding, labs (BMP q wednesday x 3) while hereContin ue proscar 5 mg daily and flomax 0.4 mg dailyMaint ain fluidsRefe r to Urology if remains problemati c. Coronary arteriosclerosis 98311248 I25.10 Recent h/o NSTEMIAnd anginaFoll owed by Higinio, Dr. Mendoza nue meds:atorv astatin 40 mg dailytopro l XL 50 mg dailyIsoso rbide mononitrat e 120 mg dailyPRN SL NTGMonitor CP status, VS, labsUpdate Cardiology with concernsCa rdiac diet Dementia 53051384 F03.92 Continue:D epakote ER 500 mg bidGabapen tin 100 mg tidMemanti ne 10 mg bidRemeron 7.5 mg q HSSeroquel 25 mg bid prn x 14 days, then re-eval useZoloft 25 mg dailyMelat onin 5 mg q HS prn sleepRefer to psych prnMonitor mood, behaviorsI nvoke HCP 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 947205705 E11.9 metformin 500 mg bidCarb control [id number] 7.8%BS prn Gastroesop hageal reflux disease without esophagitis 946713462 K21.9 Continue omeprazole 20 mg dailyMonit or GI sx. Hypertensive disorder 38 728329 I10 BP high in hosp., hydralazin e 10 mg q 8 hrs added with improvemen t in VS.Also on:toprol XL 50 mg dailyisoso rbide mononitrat e 120 mg dailymonit or VS Hyperlipidemia 75987695 E78.5 continue atorvastat in 40 mg daily Seizure 10816306 R56.9 Noted in hosp. paperworkI s on:Depakot e 500 mg bidGabapen tin 100 mg tidWill continue History of pulmonary embolus 172378228 Z86.711 apixaban 5 mg bidmonitor resp. status, VS, labs, active bleeding [id number] Lorelei Moon MD [address] [address] 10/16/2022 17:48:05 10/20/2022 09:06:17 Chest pain 31029837 R07.89 ACS ruled out.Contin ue meds for CAD as below.Kade tor sxs. Hypertensive disorder 38 285355 I10 With diff to control SBP, doing better since hydralazin e started inpt.Colton nue hydralazin e 10 mg q 8 hrs, metoprolol 50 mg qd and isosorbide mononitrat e 120 mg qd.Monitor BP and labs. Retention of urine 23441 4002 R33.8 Voiding normally at this time.Colton nue finasterid e 5 mg qd and tamsulosin 0.4 mg qd.Monitor urinary function and labs.Uro consult prn. Coronary arteriosclerosis 26361494 I25.10 No current sxs.Contin ue meds as above and atorvastat in 40 mg qd, and NTG 0.4 mg sl prn CP.F/U with cardio, Dr. Ritter, as planned. Dementia 88151235 F02.B3 Moderate at baseline.C ontinue sertraline 25 mg qd, gabapentin 100 mg TID, memantine 10 mg BID, mirtazapin e 7.5 mg qhs, quetiapine 25 mg BID prn (reeval in 14 days), and melatonin 5 mg qhs prn sleep.Kade tor mood and behaviorsI nvoke HCPPsych consult. 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 596830144 E11.9 Sugars not being checked since here. HgA1C 7.8.Contin ue metformin 500 mg BID, monitor for need to adjust dose or stop due to renal function.C ontinue carb controlled dietMonito r sugars prn and HgA1C q 3 months. Gastroesop hageal reflux disease without esophagitis 475732980 K21.9 Continue omeprazole 20 mg dailyMonit or GI sx. Hyperlipidemia 99888344 E78.49 Continue atorvastat in 40 mg qdMonitor labs as outpt. Seizure 32482870 G40.89 No recent seizures.C ontinue depakote ER 500 mg BID. May also be on gabapentin (as above) for seizures, but could be mood or pain also.Monit or for seizure activity. History of pulmonary embolus 298845331 Z86.711 Continue apixaban 5 mg BIDMonitor resp. status and bleeding risk Chronic ki dney disease stage 2 212505403 N18.2 As above. Constipation 53824193 K5 9.09 Continue bowel meds as ordered.Mo nitor bowel function. Orchitis 518543189 N45.2 Hx ofMonitor. Recurrent falls 37812849 2 R29.6 Very deconditio oscar.Needs PT/OT for strengthen ing, balance, gait training, safety and function.C ontinue fall precaution s.Monitor for safety. Heart failure 25881382 I 50.42 Appears euvolemic. Continue meds as above.Kade tor resp. status, fluid status, wts and labs. Complete atrioventricular block 73250821 I44.2 HR in good control with pacemaker. Monitor HR.F/U with cardio as planned. Anemia 242002282 D64.89 Improved since last admission. Continue B 12 1000 mcg qd.No longer on FeSO4.Kade tor CBC, consider recheck of iron profile. Depressive disorder 3548 9007 F33.8 Mood seems good today.Cont inue meds as above.Kade tor mood.Psych consult prn. Peripheral nerve disease 223323846 G64 Continue gabapentin 100 mg TID and APAP 650 mg q 4 hrs prn.Monito r sxs. Hypoparathyroidism 01601 004 E20.8 Ca+ currently WNL.Monito r Ca+ and f/u as outpt. Acute-on-c hronic renal failure 080222582 N17.8 N18.2 Almost back to baseline. Partially due to urinary retention. Continue to avoid nephrotoxi c meds as able.Monit or labs.Renal consult prn.Follow up with Dr. Palm in 2-3 wks [id number] MANDY CAZARES NP [address] [address] 10/21/2022 12:40:51 10/23/2022 20:07:41 Chest pain 86685983 R07.89 ACS ruled out, no issues with CP here so far.Contin ue meds for CAD as below.Kade tor sxs. Hypertensive disorder 38 783640 I10 With diff to control SBP, doing better since hydralazin e started inpt.Still on the higher side of nl.Continu e hydralazin e 10 mg q 8 hrs, metoprolol 50 mg qd and isosorbide mononitrat e 120 mg qd.Monitor BP and labs - consider increasing hydralazin e if BPs don't continue to trend down. Acute-on-c hronic renal failure 156048199 N17.8 N18.2 Almost back to baseline. Partially due to urinary retention. Monitor voiding, s/s retention, maintain fluidsBMP x 1 in amContinue to avoid nephrotoxi c meds as able.Monit or labs.Renal consult prn.Follow up with Dr. Palm in 2-3 wks Chronic ki dney disease stage 2 558420344 N18.2 As above. Retention of urine 09661 4002 R33.8 Voiding normally at this time.Colton nue finasterid e 5 mg qd and tamsulosin 0.4 mg qd.Monitor urinary function and labs.Uro consult prn. Coronary arteriosclerosis 36148689 I25.10 No current sxs.Contin ue meds as above and atorvastat in 40 mg qd, and NTG 0.4 mg sl prn CP.F/U with cardio, Dr. Ritter, as planned. Dementia 52378828 F02.B3 Moderate at baseline.C ontinue sertraline 25 mg qd, gabapentin 100 mg TID, memantine 10 mg BID, mirtazapin e 7.5 mg qhs, quetiapine 25 mg BID prn (reeval in 14 days), and melatonin 5 mg qhs prn sleep.Kade tor mood and behaviorsI nvoked HCPPsych consult. 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 Gastroesop hageal reflux disease without esophagitis 953936115 K21.9 Continue omeprazole 20 mg dailyMonit or GI sx. Hyperlipidemia 79362356 E78.49 Continue atorvastat in 40 mg qdMonitor labs as outpt. Seizure 95440209 G40.89 No recent seizures.C ontinue depakote ER 500 mg BID. May also be on gabapentin (as above) for seizures, but could be mood or pain also.Monit or for seizure activity. History of pulmonary embolus 321722749 Z86.711 Continue apixaban 5 mg BIDMonitor resp. status and bleeding risk Constipation 87524327 K5 9.09 Continue bowel meds as ordered.Mo nitor bowel function. Orchitis 499697158 N45.2 Hx ofMonitor. Recurrent falls 25831754 2 R29.6 Very deconditio oscar.Needs PT/OT for strengthen ing, balance, gait training, safety and function.C ontinue fall precaution s.Monitor for safety. Heart failure 50935629 I 50.42 Appears euvolemic. Continue meds as above.Kade tor resp. status, fluid status, wts and labs. Complete atrioventricular block 16793696 I44.2 HR in good control with pacemaker. Monitor HR.F/U with cardio as planned. Anemia 471007616 D64.89 Improved since last admission. Continue B 12 1000 mcg qd.No longer on FeSO4.Kade garcia CBC - repeat in am, consider recheck of iron profile. Depressive disorder 3548 9007 F33.8 Mood seems good today.Cont inue meds as above.Kade garcia mood.Psych consult prn. Peripheral nerve disease 478274699 G64 Continue gabapentin 100 mg TID and APAP 650 mg q 4 hrs prn.Monito r sxs. Hypoparathyroidism 39493 004 E20.8 Ca+ currently WNL.Monito r Ca+ and f/u as outpt. [id number] Apryl Metcalf NP [address] [address] 10/27/2022 13:46:46 10/30/2022 12:31:07 Chest pain 85380600 R07.89 ACS ruled out, no issues with CP here so far.Contin ue meds for CAD as below.Kade tor sxs outpt with pcp Hypertensive disorder 38 433814 I10 With diff to control SBP, doing better since hydralazin e started inpt. and now bps 130s systolicly .Continueh ydralazine 10 mg q 8 hrs (script given)meto prolol 50 mg qdisosorbi de mononitrat e 120 mg qd.Monitor BP and labs outpt Acute-on-c hronic renal failure 836269969 N17.8 N18.2 basleine cr 1.4 herehad urinary retention which resolved while hereContin ue to avoid nephrotoxi c meds as able.Monit or labs outpt with pcpFollow up with Dr. Palm in 2-3 wks outpt Chronic ki dney disease stage 2 572336353 N18.2 As above. Retention of urine 55563 4002 R33.8 Voiding normally at this time.Colton nuefinaste ride 5 mg qdtamsulos in 0.4 mg qd.monitor outpt with pcp Coronary arteriosclerosis 73648323 I25.10 No current sxs.Contin ue meds as above and atorvastat in 40 mg qd, and NTG 0.4 mg sl prn CP.F/U with cardio, Dr. Ritter, as planned. Dementia 53197250 F02.B3 Moderate at baseline. 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 Gastroesop hageal reflux disease without esophagitis 894734230 K21.9 Continueom eprazole 20 mg dailyMonit or GI sx. outpt Hyperlipidemia 20231492 E78.49 Continueat orvastatin 40 mg qdMonitor labs as outpt. Seizure 19594873 G40.89 No recent seizures.C ontinuedep akote ER 500 mg BID.May also be on gabapentin (as above) for seizures, but could be mood or pain also.Monit or for seizure activity outpt History of pulmonary embolus 788760517 Z86.711 Continueap ixaban 5 mg BIDMonitor resp. status and bleeding risk outpt Constipation 90689160 K5 9.09 Continue bowel medsMonito r bowel function outpt Orchitis 438037739 N45.2 Hx ofMonitor for sequelae outpt Recurrent falls 53286066 2 R29.6 weakness improving with PT/OT while herePT/OT for strengthen ing, balance, gait training, safety and function completedC ontinue fall precaution s at homeMonito r for safety at home Heart failure 07982144 I 50.42 Appears euvolemic. Continue meds as above.Kade tor resp. status, fluid status, wts and labs outpt Complete atrioventricular block 79246997 I44.2 HR in good control with pacemaker. Monitor HR.F/U with cardio as planned outpt Anemia 280301443 D64.89 Improved since last admission. ContinueB 12 1000 mcg qd.No longer on FeSO4.kade tor outpt Depressive disorder 3548 9007 F33.8 Mood seems good today.Cont inue meds as above.Kade tor mood.Psych consult prn outpt Peripheral nerve disease 480715913 G64 Continuega bapentin 100 mg TID and APAP 650 mg q 4 hrs prn.Monito r sxs. outpt Hypoparathyroidism 76451 004 E20.8 Ca+ currently WNL.Monito r Ca+ and f/u as outpt. [id number] Apryl Metcalf NP [facility] [address] [address] 03/01/2023 13:55:34 03/10/2023 09:06:27 Chest pain 72381981 R07.9 Non cardiac, reproducib le in hosp and resolvedMo nitorSL NTG prn in place Hypertensive disorder 38 099872 I10 conttoprol XL 50 mg dailyisoso rbide mononitrat e 120 mg dailymonit or VS Acute kidney injury 1466 9001 N17.9 Acute on ChronicImp roved in hosp. with IVFBaselin e Creat 1.1, 1.2Monitor BMP q wednesdayMain tain fluidsAvoi d nephrotoxi csFollow up Dr. Palm prn Retention of urine 96343 4002 R33.9 hx ofBMP q wednesday weekly while hereprosca r 5 mg dailyfloma x 0.4 mg po dailyMaint ain fluidsRefe r to Urology if remains problemati c. Coronary arteriosclerosis 83309956 I25.10 Recent h/o NSTEMI with angina at timesFollo wed by Dr. 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 Hyperlipidemia 33089421 E78.5 continue atorvastat in 40 mg daily Seizure 98371197 R56.9 Noted in hosp. paperworkI s on:Depakot e 500 mg bidGabapen tin 100 mg tidWill continue History of pulmonary embolus 195823672 Z86.711 apixaban 5 mg bidwas supposed to be on for six months, discuss with pcp outpt for length of need, unclear when PE wasmonitor resp. status, VS, labs, active bleeding Recurrent falls 89808082 2 R29.6 weakness improving with PT/OT while herePT/OT for strengthen ing, balance, gait training, safety and function [facility] ontinue fall precaution s at [facility] r for safety at home Mood disorder 71142100 F 41 with baseline depression with recent [facility] of [facility] te [facility] 500 mg bidGabapen tin 100 mg tidMemanti ne 10 mg bidRemeron 7.5 mg q HSSeroquel 25 mg bid and 25 mg prn x 14 days, then re-eval useZoloft 25 mg dailyMelat onin 5 mg q HS prn sleepRefer to psych prnMonitor mood, behaviorsI nvoke HCP, sonMood seems good today.Kade tor mood.Psych consult prn outpt Delirium 2894073 F09 with baseline depression with recent diagnosis of delirium in hosp requiring haldol and ativan and restraints Depakote ER 500 mg bidGabapen tin 100 mg tidMemanti ne 10 mg bidRemeron 7.5 mg q HSSeroquel 25 mg bid and 25 mg prn x 14 days, then re-eval useZoloft 25 mg dailyMelat onin 5 mg q HS prn sleepRefer to psych prnMonitor mood, behaviorsI nvoke HCP, sonMood seems good today.Kade tor mood.Psych consult prn outptdelir ium rec from geriatrics :freq reorientat ionaddress sensory imprairmen t-encourag e glasses or hearing aids if neededavoi d use of restraints -use constant campanion as needed for increased behaviours amb with pt tid [id number] [facility] [address] 03/03/2023 12:05:40 03/10/2023 10:45:20 Delirium 2759089 F09 question baseline dementia with superimpos ed deliriumre quired restraints in hospitalou t patient medication s unchangedm aintained ondepakote , namenda, seroquelmo nitor for behaviorsp sych to eval Chest pain 61296707 R07. 89 presenting complaints with testing reassuring for non cardiac etiologysi gnificant cardiac hx s/p cabg x 4 with pacer placementm onitor for sxupdate cards with concerns Acute kidney injury 1466 9001 N17.8 ARF on CRF improved with IVFmonitor renal functionav oid nephrotoxi c meds as ablenephro consult prn with f/u in place Hypertensive disorder 38 666405 I10 metoprolol 50 mg qdimdur 120 mg qdmonitor bp and need to titrat Dementia 35184385 F03.92 see abovebasel ine dementiain voke HCPcontinu e supportive carepsych to evalmonito r for behaviors and need to titrate medication s Coronary arteriosclerosis 79109999 I25.10 see HPIknown CAD s/p CABG x 4lipitor 40 mg qdmetoprol ol 50 mg qdmaintain ed on eliquis at baselinemo nitor for sx 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 244538917 E11.21 metformin 500 mg bidmonitor need to adjusthba1 c if transition s to LTC Gastroesop hageal reflux disease without esophagitis 583633992 K21.9 omeprazole 20 mg qdmonitor for sx relief Hyperlipidemia 10010816 E78.49 lipitor 40 mg qdcontinue dsee abovelipid panel if transition s to LTC History of pulmonary embolus 563285047 Z86.711 eliquis 5 mg bidunsure if this was provokedwi ll continue AC at this time Recurrent falls 08744471 2 R29.6 PT OT Eval and treatmonit or fall risk and need for increased services in community vs need to transition to LTC Benign pro static hyperplasia with outflow obstruction 801480062 N40.1 proscar 5 mg qdflomax 0.4 mg po qdmonitor outputurol ogy eval prn [id number] Apryl Metcalf NP [address] [address] 03/10/2023 10:21:35 03/16/2023 14:18:23 Delirium 0869392 F09 with baseline depression and dementia, improvingw ith recent diagnosis of delirium in hosp requiring haldol and ativan and restraints Depakote ER 500 mg bidGabapen tin 100 mg tidMemanti ne 10 mg bidRemeron 7.5 mg q HSSeroquel 25 mg bid and 25 mg prn x 14 days, then re-eval use on 03/26, has required one dose on 02/28 onlyconsid er discontinu ing at next visitZolof t 25 mg dailyMelat onin 5 mg q HS prn sleepRefer to psych prnMonitor mood, behaviorsI nvoke HCP, dominic warren rec from geriatrics :freq reorientat ionaddress sensory imprairmen t-encourag e glasses or hearing aids if neededavoi d use of restraints -use constant scrap preparer as needed for increased behaviours amb with pt tid Chest pain 98006601 R07. 9 Non cardiac, reproducib le in hosp and resolvedMo nitorSL NTG prn in place Acute kidney injury 1466 9001 N17.9 Acute on ChronicImp roved in hosp. with IVFBaselin e Creat 1.1, 1.2Monitor BMP q wednesday, will dc as he is stable hereMainta in fluidsAvoi d nephrotoxi csFollow up Dr. Palm prn Hypertensive disorder 38 527634 I10 conttoprol XL 50 mg dailyisoso rbide mononitrat e 120 mg dailymonit or VS Dementia 28886540 F03.92 [facility] of [facility] mg bidGabapen tin 100 mg tidMemanti ne 10 mg bidRemeron 7.5 mg q HSSeroquel 25 mg bid and 25 mg prn x 14 days, then re-eval use on 03/26Zolof t 25 mg dailyMelat onin 5 mg q HS prn sleepRefer to psych prnMonitor mood, behaviorsI nvoke HCP, son Retention of urine 21926 4002 R33.9 hx ofresolvin gproscar 5 mg dailyfloma x 0.4 mg po dailyMaint ain fluidsRefe r to Urology if remains problemati c. Coronary arteriosclerosis 79073850 I25.10 [facility] Dr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 Hyperlipidemia 09036674 E78.5 continueat orvastatin 40 mg daily Seizure 61897878 R56.9 cont;Depak ote 500 mg bidGabapen tin 100 mg tidmonitor depakote level in q months outpt in 09/18 History of pulmonary embolus 688817738 Z86.711 cont for nowapixaba n 5 mg bidwas supposed to be on for six months, discuss with pcp outpt for length of need, unclear when PE wasmonitor resp. status, VS, labs, active bleeding Recurrent falls 58306748 2 R29.6 weakness improving with PT/OT while herePT/OT for strengthen ing, balance, gait training, safety and function completedC ontinue fall precaution s at homeMonito r for safety at homehe reports he would like to go home when ready Mood disorder 81571682 F 41 with baseline depression with recent diagnosis of delirium in hospDepako te ER 500 mg bidGabapen tin 100 mg tidMemanti ne 10 mg bidRemeron 7.5 mg q HSSeroquel 25 mg bid and 25 mg prn x 14 days, then re-eval use, 03/26Zolof t 25 mg dailyMelat onin 5 mg q HS prn sleepRefer to psych prnMonitor mood, behaviorsI nvoke HCP, son [id number] Apryl Metcalf, ABHISHEK [address] [address] 03/15/2023 12:14:23 03/17/2023 07:35:25 Delirium 6255089 F09 with baseline depression and dementia, improved while here with recent diagnosis of delirium in hosp requiring haldol and ativan and restraints , however not needed here cont;Depak ote ER 500 mg bidGabapen tin 100 mg tidMemanti ne 10 mg bidRemeron 7.5 mg q HSseroquel 25 mg po bid prn (has not used much here)Zolof t 25 mg dailyMelat onin 5 mg q HS prn sleepRefer to psych prn outptMonit or mood, behaviors outptInvok e HCP, tusharmackenzie warren rec from geriatrics :freq reorientat ionaddress sensory imprairmen t-encourag e glasses or hearing aids if needed outptmonit or with pcp outpt Dementia 51738289 F03.92 with recent diagnosis of delirium in hosp, however improving here at rehabDepak ote ER 500 mg bidGabapen tin 100 mg tidMemanti ne 10 mg bidRemeron 7.5 mg q HSSeroquel 25 mg bid and 25 mg prnZoloft 25 mg dailyMelat onin 5 mg q HS prn sleepRefer to psych prn outptMonit or mood, behaviors with pcp outptInvok e HCP, son Recurrent falls 71327128 2 R29.6 appears to be at baseline hereweakne ss improving with PT/OT while herePT/OT for strengthen ing, balance, gait training, safety and function completed outpt prnContinu e fall precaution s at homeMonito r for safety at homefu with pcp outpt Chest pain 35666904 R07. 9 Non cardiac, reproducib le in hosp and resolvedSL NTG prn in placemonit or outpt with pcp Acute kidney injury 1466 9001 N17.9 Acute on Chronic AKIImprove d in hosp. with IVFBaselin e Creat 1.1, 1.2, stable at rehabMaint ain fluidsAvoi d nephrotoxi csFollow up Dr. Palm prn outpt Hypertensive disorder 38 740713 I10 high stable herecontto prol XL 50 mg dailyisoso rbide mononitrat e 120 mg dailymonit or outpt with pcp Retention of urine 84223 4002 R33.9 hx ofproscar 5 mg dailyfloma x 0.4 mg po dailyMaint ain fluidsRefe r to Urology if remains problemati c outpt Coronary arteriosclerosis 32505740 I25.10 Recent h/o NSTEMI with angina at timesFollo wed by Cards, Dr. 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 outpt with pcp Hyperlipidemia 41547245 E78.5 continueat orvastatin 40 mg dailymonti or outpt with pcp Seizure 04409929 R56.9 cont;Depak ote 500 mg bidGabapen tin 100 mg tidmonitor depakote level outpt prn with pcp History of pulmonary embolus 290364428 Z86.711 cont for nowapixaba n 5 mg bidwas supposed to be on for six months, discuss with pcp outpt for length of need, unclear when PE wasmonitor outpt with pcp Mood disorder 01755212 F 41 with baseline depression with recent diagnosis of delirium in hospDepako te ER 500 mg bidGabapen tin 100 mg tidMemanti ne 10 mg bidRemeron 7.5 mg q HSSeroquel 25 mg bid and 25 mg prnZoloft 25 mg dailyMelat onin 5 mg q HS prn sleepRefer to psych prn outptMonit or mood, behaviors with pcp outptInvok e HCP, son Health Concerns Section Related Observation LastModified by Organization Detai ls LastModified Time None Recorded Concern Status LastModified by Organization Details LastModified Time None Recorded Advance Directives Directive Y: Payers Encounter Date Sequence Insurance Name Policy Number Policy Renteria Covered Member ID Renteria Member ID Guarantor Name 10/27/2022 1 [facility] - DOS ON OR AFTER 2022 - MEDIC[place]AGE [place]/ADV ANTAGE - PPO) Kishan Andrews [id number] Kishan Andrews 03/01/2023 1 [facility] - DOS ON OR AFTER 2022 - [place]/ADV ANTAGE - PPO) Kishan Andrews [id number] Kishan Andrews 03/03/2023 1 [facility] - DOS ON OR AFTER 2022 - [place]/ADV ANTAGE - PPO) Kishan Andrews [id number] Kishan Andrews 03/10/2023 1 [facility] - DOS ON OR AFTER 2022 - [place]/ADV ANTAGE - PPO) Kishan Andrews [id number] Kishan Andrews 03/15/2023 1 [facility] - DOS ON OR AFTER 2022 - [place] RE[place]AC[place]/ADV ANTAGE - PPO) Kishan Andrews [id number] Kishan Andrews Notes Date Note Type Note Provider Name and Address Organization Details Recorded Time 3 text/html Kishan is seen today for a discharge visit. PMH: HTN, CKD stage 2, CAD (s/p CABG x4 with REYES to LAD, sequential radial graft of the REYES to ramus, SVG to RPL V, free KATRINA to PAD and SVG to RPL [known occluded status post MARICARMEN to the same] and MARICARMEN to proximal left circumflex in 2002 with subsequent LHC in 2004 demonstrating occlusion of the stent and unsuccessful recannulization, subsequent LHC in 2005 showing 3/4 graft patent), recurrent angina, complete heart block s/p dual-chamber Medtronic permanent pacemaker in place, hypoparathyroidism, dual-chamber pacemaker for heart block, dementia, recurrent falls, AODM, s/p COVID, GERD, HLD, s/p SDH due to mechanical fall in 02/2020 with resolution, hx of orchitis, hx of PEs on Eliquis, and NELLI not on CPAP. He is a 81 yo male admitted on [facility] 10/13/22 from [facility] for continued care and rehab after a brief hosp. related to CP, GARDENIA, urinary retention. He initially presented to [facility] 10/07 with Chest pain. Work up showed his troponins flat, ACS ruled out. BP was running high, improved with addition of hydralazine. Developed hyperkalemia, GARDENIA, and urinary retention; improved with IVF, lokelma, and alexandra removed and voiding well now. While here at [facility]:SBP remained uncontrolled and hydralazine was added with marked improvement and now bps in the 130s systolicly for the most part. He was continued on Eliquis for hx of PE. Potassium was stable on lokelma and urinating per baseline since alexandra removed here. Since here he has been participating with rehab and improving slowly. While here his labs were reviewed weekly and remain with baseline cr 1.4 and bun 36. h/h stable. Upon exam, he is motoring around in his wheelchair. A silk screen layout drafter helps with this visit. He reports getting up and walking with walker. He states he will go home and has help with family as before. He denies any chest pain, nausea, vomiting, weakness, or any medical concerns. He is excited to go home and will not need services at this time as family provide help with adls. MOLST: HCP Invoked Apryl Metcalf NP [address], [address], [place], [address], [facility] 10/27/2022 16:37:48 3 text/html Kishan is seen today for an initial intake visit. PMH: HTN, CKD stage 2, CAD (s/p CABG x4 with REYES to LAD, sequential radial graft of the REYES to ramus, SVG to RPL V, free KATRINA to PAD and SVG to RPL [known occluded status post MARICARMEN to the same] and MARICARMEN to proximal left circumflex in 2002 with subsequent LHC in 2004 demonstrating occlusion of the stent and unsuccessful recannulization, subsequent LHC in 2005 showing 3/4 graft patent), recurrent angina, complete heart block s/p dual-chamber Medtronic permanent pacemaker in place, hypoparathyroidism, dual-chamber pacemaker for heart block, dementia, recurrent falls, AODM, s/p COVID, GERD, HLD, s/p SDH due to mechanical fall in 02/2020 with resolution, hx of orchitis, hx of PEs on Eliquis, and NELLI not on CPAP. Kishan is an 82 yo male admitted on [facility] on 02/26 from [facility] for continued care and rehab after a brief hosp. related to frequent falls and confusion with chest pain per family. His workup including CT head and cervical spine unremarkable. Hip xary negative for acute fracture. No injuries noted. He fell while in the ER without injury. His hospital course was complicated by delirium, agitation requiring IM haldol and olanzapine and restraints. Geriatrics was consulted. He also was found to have GARDENIA resolved with IVF. His chest pain was reproducible and troponins and EKG negative. His medications were unchanged during his hospitalization for home. On exam, A sailing officer is used with this assessment. He is sitting in the activity room in [facility]. He is pleasant and extremely confused and denies any shortness or breath, chest pain, or other ailments. He states he is in [place] and [place] with a brother. He also states his mother would like him to go home today. 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 MOLST:Full code, HCP Invoked, son on last admission. SLUMS Apryl Metcalf NP [address], [address], [place], [address], [facility] 03/01/2023 15:07:08 3 text/html Patient is an 82 yo male admit from hospital after presenting with recurrent falls and increased confusion with question c/o chest pain. Imaging negative for acute injury. Noted to be in ARF improved with IVF. Cardiac workup reassuring for non-cardiac nature of pain. Patient with baseline dementia did suffer from delirium and agitation required haldol, zyprexa and restraints prior. lives with son who is HCP and translates during eval PMH significant forcrf stage 2htncad hx cabg x 4complete heart block with pacer in placedementiarecurrent fallsDMgerdhldhx PE on eliquisOSA admit to facility for continued care with therapy to eval and treat Antwan Pedroza MD [address], [address], [place], [address], [facility] 03/03/2023 12:32:05 3 text/html Kishan is seen today for an acute rounding visit. PMH: HTN, CKD stage 2, CAD (s/p CABG x4 with REYES to LAD, sequential radial graft of the REYES to ramus, SVG to RPL V, free KATRINA to PAD and SVG to RPL [known occluded status post MARICARMEN to the same] and MARICARMEN to proximal left circumflex in 2002 with subsequent LHC in 2004 demonstrating occlusion of the stent and unsuccessful recannulization, subsequent LHC in 2005 showing 3/4 graft patent), recurrent angina, complete heart block s/p dual-chamber Medtronic permanent pacemaker in place, hypoparathyroidism, dual-chamber pacemaker for heart block, dementia, recurrent falls, AODM, s/p COVID, GERD, HLD, s/p SDH due to mechanical fall in 02/2020 with resolution, hx of orchitis, hx of PEs on Eliquis, and NELLI not on CPAP. Kishan is an 82 yo male admit at [facility] for rehab and continued care since 02/26/23 from hospital after presenting with recurrent falls and increased confusion with question c/o chest pain. On exam, A sailing officer is used with this assessment. He is lying in bed in [facility]. He is still confused with baseline dementia. No behaviors per staff while here. He states he has no concerns and wants to see his mother at home. He continues to work with therapy for ambulation. He is eating and drinking. Denies any constipation.Will dc labs as this is provoking and stable here for the last few weeks. He is improving overall. Labs reviewed and stable. MOLST:Full code, HCP Invoked, son on last admission. SLUMS Apryl Metcalf, ABHISHEK [address], [address], [place], [address], [facility] 03/10/2023 10:42:54 3 text/html Kishan is seen today for a discharge visit. PMH: HTN, CKD stage 2, CAD (s/p CABG x4 with REYES to LAD, sequential radial graft of the REYES to ramus, SVG to RPL V, free KATRINA to PAD and SVG to RPL [known occluded status post MARICARMEN to the same] and MARICARMEN to proximal left circumflex in 2002 with subsequent LHC in 2004 demonstrating occlusion of the stent and unsuccessful recannulization, subsequent LHC in 2005 showing 3/4 graft patent), recurrent angina, complete heart block s/p dual-chamber Medtronic permanent pacemaker in place, hypoparathyroidism, dual-chamber pacemaker for heart block, dementia, recurrent falls, AODM, s/p COVID, GERD, HLD, s/p SDH due to mechanical fall in 02/2020 with resolution, hx of orchitis, hx of PEs on Eliquis, and NELLI not on CPAP. Kishan is an 82 yo male admit at [facility] for rehab and continued care since 02/26/23 from hospital after presenting with recurrent falls and increased confusion with question c/o chest pain While here at [facility] he has done well. Labs were monitored weekly without any acute needs.No medication changes were made in hospital or here. He will go home per his son's wishes with Nathaniel. A referral to [facility] was made for nursing and services. On exam, A sailing officer is used with this assessment.He is lying in bed in [facility]. He is still confused with baseline dementia however appears to be able to state his needs and that he has liked it here with all the extra help. No behaviors per staff while here. He denies any chest pain, shortness of breath, pain, or other ailments today. He continued to work with therapy for ambulation and is felt he has done well here to regain his baseline adls of putting on and off a shirt and minimal transfer assistance per therapy note. He is eating and drinking. Denies any constipation. MOLST:Full code, HCP Invoked, son on last admission. [facility] Apryl Metcalf, ABHISHEK [address], [address], [place], [address], [facility] 03/15/2023 12:34:33
--- OUTSIDE RECORDS SUMMARY | 2024-06-30 15:25 | XMS_ITS | Encounter Summary ---
Author Organization [employer] Address [address] [facility] 7 [place] [address] Care Team Providers Care Centerless Grinder Operator Name Role Phone Birgit Keyes MD Primary Care Provider [phone] Reason for Visit * Reason Comments Follow-up HDF Encounter Details Date Type Department Care Team ([facility] Contact Info) Description 06/30/2024 1:30 PM EDT Office Visit [facility] [address] [place], [place] [phone] Aramis Simmons MD [address] [place] [address] GARDENIA (acute kidney injury) (CMS/HCC) (Primary Dx); Primary hypertension; Pyelonephritis Social History Tobacco Use Types Packs/Day Years [...] AM EDT documented as of this encounter Last Filed Vital Signs Vital Sign Reading [...] Mass Index 26.56 06/30/2024 1:05 PM EDT documented in this encounter Progress Notes * Aramis Simmons MD - 06/30/2024 1:30 PM EDT Subjective Patient ID: Kishan Andrews is a 83 y.o. male who presents for No chief complaint on file.. [facility] Hospital discharge follow-up. Admitted at [facility] on April 06, 2024 to April 07, 2024 with chest pain. Found to have UTI due to Klebsiella pneumoniae sensitive to ceftriaxone. Patient was started on cefpodoxime. Also noted to havebehavioral disturbances in the setting of his UTI. There was also a concern of polypharmacy. Memantine, sertraline, mirtazapine, gabapentin were discontinued. Patient was discharged home. Discharge also on cefpodoxime 100 mg every 12 hours for 6-day. Second hospitalization at [facility] from June 07, 2024 to June 12, 2024. Admitted with pyelonephritis. Also noted to have orthostatic hypotension. Antihypertensives decreased. Dizziness resolved. Started on ceftriaxone for pyelonephritis empirically. amlodipine discontinued. Isosorbide mononitrate ER 120 mg once a day decreased to 90 mg once a day Pt came to the office w his son who reports that the patient is back to his baseline. He has resumed his home medication. Only Imdur was decreased to 90 mg once a day. Patient Active Problem List Diagnosis Arthritis Atherosclerosis of coronary artery Cataract Diabetes mellitus type 2, uncomplicated (CMS/HCC) Dizziness Gout Hyperlipidemia Obstructive sleep apnea syndrome Hypertension Old myocardial infarction Primary hyperparathyroidism (CMS/HCC) Presence of cardiac pacemaker Stage 2 chronic kidney disease Benign hypertensive renal disease Thyroid nodule Neuropathy Severe dementia (CMS/HCC) Cyst of epididymis Acute pulmonary embolism ([facility]/HCC) Peripheral vascular disease ([facility]/HCC) Status post four vessel coronary artery bypass GERD (gastroesophageal reflux disease) Dyslipidemia Disease due to severe acute respiratory syndrome coronavirus 2 (SARS-CoV-2) Class 1 obesity Routine physical examination Attic perforation of tympanic membrane of left ear Impacted cerumen of right ear Heart failure with preserved ejection fraction ([facility]/HCC) History of pulmonary embolism Onychogryphosis Onychomycosis Seizure disorder ([facility]/HCC) Complete atrioventricular block ([facility]/HCC) Benign prostatic hyperplasia with urinary obstruction Acute non-ST segment elevation myocardial infarction ([facility]/HCC) Hypoparathyroidism ([facility]) Retention of urine Recurrent falls Severe back pain 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 Do not crush, chew, or split. 90 tablet 1 Alcohol Swabs (Alcohol Prep) 70 % pads USE TWO DAILY ammonium lactate (Amlactin) 12 % cream APPLY TO THE AFFECTED AREA(S) ONCE DAILY aspirin 81 MG chewable tablet aspirin 81 mg chewable tablet TAKE 1 TABLET BY MOUTH EVERY MORNING mastique atorvastatin (Lipitor) 40 MG tablet TAKE ONE TABLET EVERY NIGHT AT BEDTIME 90 tablet 3 Blood Glucose Monitoring Suppl (ONE TOUCH ULTRA 2) w/Device kit clotrimazole (Lotrimin) 1 % cream clotrimazole 1 % topical cream cyanocobalamin (Vitamin B-12) 1000 MCG tablet TAKE ONE TABLET EVERY MORNING 120 tablet 3 divalproex (Depakote) 500 MG EC tablet TAKE ONE TABLET TWICE DAILY IN THE MORNING AND AT BEDTIME 180 tablet 2 Eliquis 5 MG tablet TAKE ONE TABLET IN THE MORNING AND EVENING 180 tablet 2 ferrous gluconate (Fergon) 324 (37.5 Fe) MG tablet TAKE ONE TABLET EVERY OTHER DAY IN THE MORNING 45 tablet 1 finasteride (Proscar) 5 MG tablet TAKE ONE TABLET EVERY MORNING 90 tablet 1 isosorbide mononitrate ER (Imdur) 30 MG 24 hr tablet Take 3 tablets (90 mg) by mouth Once per day. Do not crush or chew. 90 tablet 2 Januvia 50 MG tablet TAKE ONE TABLET EVERY MORNING 90 tablet 1 Lancets (OneTouch Delica Plus Iptdzo97C) [facility] [place] BLOOD SUGAR TWICE DAILY 100 each 11 melatonin 5 MG tablet TAKE ONE TABLET EVERY NIGHT AT BEDTIME NEEDED 90 tablet 1 metFORMIN (Glucophage) 500 MG tablet TAKE ONE TABLET IN THE MORNING AND EVENING 180 tablet 1 metoprolol succinate XL (Toprol-XL) 50 MG 24 hr tablet TAKE ONE TABLET EVERY MORNING 90 tablet 1 Multiple Vitamin (Multivitamin) tablet TAKE ONE TABLET EVERY MORNING WITH FOOD 90 tablet 1 nitroglycerin (Nitrostat) 0.4 MG SL tablet Take 1 tab po q 5 min x 3 prn chest pain. If pain persistas after 3 tabs, call 911. 100 tablet 0 omeprazole (PriLOSEC) [address] capsule TAKE ONE CAPSULE EVERY MORNING BEFORE BREAKFAST 90 capsule 1 polyethylene glycol, PEG, 3350 (MiraLax) 17 GM/SCOOP powder Take 17 g by mouth Once per day. 527 g 2 QUEtiapine (SEROquel) 25 MG tablet TAKE ONE TABLET TWICE DAILY IN THE MORNING AND AT BEDTIME NEEDED AGITATION 60 tablet 5 senna-docusate sodium (Senokot-S) 8.6-50 MG tablet Take 2 tablets by mouth if needed at bedtime forconstipation. 60 tablet 1 tamsulosin (Flomax) 0.4 MG 24 hr capsule TAKE ONE CAPSULE EVERY MORNING 90 capsule 1 [DISCONTINUED] amLODIPine (Norvasc) 5 MG tablet Take 5 mg by mouth. [DISCONTINUED] gabapentin (Neurontin) 100 MG capsule TAKE ONE CAPSULE THREE TIMES DAILY IN THE MORNING, EVENING AND BEDTIME 270 capsule 1 [DISCONTINUED] isosorbide mononitrate ER (Imdur) 60 MG 24 hr tablet TAKE TWO TABLETS EVERY MORNING 180 tablet 1 [DISCONTINUED] memantine (Namenda) 10 MG tablet TAKE ONE TABLET IN THE MORNING AND EVENING 180 tablet 1 [DISCONTINUED] mirtazapine (Remeron) 7.5 MG tablet TAKE ONE TABLET EVERY NIGHT AT BEDTIME 90 tablet2 [DISCONTINUED] sertraline (Zoloft) 25 MG tablet TAKE ONE TABLET EVERY MORNING 90 tablet 1 No current facility-administered medications on file prior to visit. Allergies Allergen Reactions Rosuvastatin Headache Review of Systems Constitutional: Negative for chills, diaphoresis and fatigue. Eyes: Negative for photophobia, pain and redness. Respiratory: Negative for cough and shortness of breath. Cardiovascular: Negative for leg swelling. Gastrointestinal: Negative for anal bleeding and blood in stool. Objective BP (!) 164/84 (BP Location: Left arm, Patient Position: Sitting, BP Cuff Size: Adult) Pulse 82 Temp 97.8 ??F (36.6 ??C) (Oral) Resp 14 Ht 5' (1.524 m) Wt 136 lb (61.7 kg) SpO2 97% BMI 26.56 kg/m?? Physical Exam Constitutional: General: He is not in acute distress. Appearance: Normal appearance. He is not ill-appearing, toxic-appearing or diaphoretic. Cardiovascular: Rate and Rhythm: Normal rate. Pulmonary: Effort: Pulmonary effort is normal. Abdominal: General: Abdomen is flat. Neurological: General: No focal deficit present. Mental Status: He is alert. Assessment/Plan Diagnoses and all orders for this visit: GARDENIA (acute kidney injury) (CMS/[facility]) Comments: Improved during the hospitalization Repeat Labs to assess stability. avoid nephrotoxic medication. Orders: - Basic Metabolic Panel; Future Primary hypertension Comments: BP is elevated Resume Imdur 120 mg once a day Follow up w/ PCP as scheduled in July. Pyelonephritis Comments: resolved Pt is back to his baseline No acute intervention today. documented in this encounter Plan of Treatment Not on file documented as of this encounter Procedures Procedure Name Priority Date/Time Associated Diagnosis Comments BASIC METABOLIC PANEL Routine 06/30/2024 1:34 PM EDT GARDENIA (acute kidney injury) (CMS/HCC) documented in this encounter Results * (ABNORMAL) Basic Metabolic Panel (06/30/2024 1:34 PM EDT) Sodium 143 135 - 145 mmol/L [facility] Potassium 5.1 3.3 - 5.1 mmol/L [facility] Chloride 111(H) 96 - 108 mmol/L [facility] Carbon Dioxide 25 22 - 29 mmol/L [facility] Anion Gap 12 12 - 20 [facility] Urea Nitrogen (BUN) 28(H) 9 - 16 mg/dL [facility] Creatinine, Serum 1.64(H) 0.5 - 1.4 mg/dL [facility] Estimated Glomerular Filt Rate 41 [facility] Comment:Chronic Kidney Disea se: Estimated GFR < 60 mL/min/[id number] Kidney Disease: Estimated GFR < 15 mL/min/1.73m2 Glucose 137(H) 60 - 115 mg/dL [facility] Calcium 9.7 8.4 - 10.2 mg/dL [facility] Blood Venous blood specimen / Unknown 06/30/2024 1:34 PM EDT 06/30/2024 1:57 PM EDT Aramis Simmons MD LAB BLOOD ORDERABLES Final Result [facility] [address] [place] [phone] [phone] documented in this encounter Visit Diagnoses Diagnosis GARDENIA (acute kidney injury) (CMS/[facility])- Primary Primary hypertension Unspecified essential hypertension Pyelonephritis Unspecified pyelonephritis documented in this encounter Care Teams Centerless Grinder Operator Relationship Specialty Start Date End Date Birgit Keyes MD [address] [place] [id number] PCP - General Family Medicine 11/29/20 [facility] 02/07/24 documented as of this encounter
--- OUTSIDE RECORDS SUMMARY | 2024-06-30 15:25 | XMS_ITS | Encounter Summary ---
Author Organization [employer] Address [address] [facility] [address] [place] [address] Care Team Providers Care Review Assistant Name Role Phone Birgit Keyes MD Primary Care Provider [phone] Reason for Visit * Reason Onset Date Comments Hospital Follow-up 06/19/2024 Encounter Details Date Type Department Care Team ([facility] st Contact Info) Description 06/19/2024 Telephone [facility] [address] [place] [address] Birgit Keyes MD [address] [place] [address] Hospital Follow-up Social History Tobacco Use Types [...] encounter Miscellaneous Notes * Telephone Encounter - Celi Hughes RN - 06/19/2024 1:38 PM EDT Tc from pt requesting a HDF appt. Hospital: [facility] Date of admission: 06/10/2024 Discharge date: 06/12/2024 Diagnosed: Kidney infection *Send message to [facility] * Telephone Encounter - Sanju Shirley - 06/19/2024 1:06 PM EDT Tc from pt requesting a HDF appt. Hospital: [facility] Date of admission: 06/10/2024 Discharge date: 06/12/2024 Diagnosed: Kidney infection *Send message to [facility] documented in this encounter Plan of Treatment Not on file documented as of this encounter Visit Diagnoses Not on filedocumented in this encounter Care Teams Review Assistant Relationship Specialty Start Date End Date Birgit Keyes MD [address] [place] [id number] PCP - General Family Medicine 11/29/20 [facility] 02/07/24 documented as of this encounter
--- OUTSIDE RECORDS SUMMARY | 2024-06-30 15:25 | XMS_ITS | Encounter Summary ---
Author Organization [employer] Address [address] [facility] [address] [place] [address] Care Team Providers Care Supervisor [employer] Construction Name Role Phone Birgit Keyes MD Primary Care Provider [phone] Reason for Visit * Reason Onset Date Comments Verbal Orders 09/29/2023 Encounter Details Date Type Department Care Team ([facility] st Contact Info) Description 09/29/2023 Telephone [facility] [address] [place] [address] Birgit Keyes MD [address] [place], [place] [phone] Verbal Orders Social History Tobacco Use Types Packs/Day Years [...] encounter Miscellaneous Notes * Telephone Encounter - Reyna Trivedi RN - 10/04/2023 11:37 AM EDT Tc from [facility] requesting verbal orders to start services for the patient please call [phone] option 2 TC returned to [facility] services and verbal order given to start home care, pt PCP is out of office this week zamora end as . * Telephone Encounter - Sylvain Cardenas - 09/29/2023 8:35 AM EDT Tc from [facility] requesting verbal orders to start services for the patient please call [phone] option 2 documented in this encounter Plan of Treatment Not on file documented as of this encounter Visit Diagnoses Not on filedocumented in this encounter Care Teams Supervisor Mold Construction Relationship Specialty Start Date End Date Birgit Keyes MD [address] [place] [id number] PCP - General Family Medicine 11/29[facility]20 [facility] documented as of this encounter
--- OUTSIDE RECORDS SUMMARY | 2024-06-30 15:25 | XMS_ITS | Encounter Summary ---
Author Organization [employer] Address [address] [facility] [address] [place] [address] Care Team Providers Care Biology Intern Name Role Phone Birgit Keyes MD Primary Care Provider [phone] Reason for Visit * Reason Onset Date Comments Hospital Follow-up 10/07/2023 Encounter Details Date Type Department Care Team ([facility] st Contact Info) Description 10/07/2023 Telephone [facility] MEDICINE [address] [place] [address] Birgit Keyes MD [address] [place] [address] Hospital Follow-up Social History Tobacco Use Types [...] encounter Miscellaneous Notes * Telephone Encounter - Jesúsnick Montesinos - 10/07/2023 10:08 AM EDT Tc from pt requesting a HDF appt. Hospital: [facility] Date of admission: 09/26 Discharge date: 10/01 Diagnosed: Infection documented in this encounter Plan of Treatment Not on file documented as of this encounter Visit Diagnoses Not on filedocumented in this encounter Care Teams Biology Intern Relationship Specialty Start Date End Date Birgit Keyes MD [address] [place] [id number] PCP - General Family Medicine 11/29/20 [facility] 02/07/24 documented as of this encounter
== END 2024-06-30 13:35 | disposition home or self-care (01) ==
LOC: HO.CHCLDS 13:34
PROVIDERS: Visit Provider Internal Medicine
DX: N17.9 Acute kidney failure, unspecified (principal)
CPT/HCPCS: 36415; 80048

== ENCOUNTER 2024-12-06 12:01 | Outpatient (REF) | payer OTHER, SELFPAY ==
--- OUTSIDE RECORDS SUMMARY | 2024-12-03 23:59 | XMS_ITS | Continuity of Care Document ---
Author Organization [facility] ter Address [address] [place] [id number]- Support Name Relationship Address Phone MELLISSA CONLEY spouse Unknown Unavailable CAPA, ROJAS DAUGHTER IN LAW Other Unknown Unavailable ISAIAH BRUNER Personal Relationship Unknown Unava ilable CAPA, JARRELL child Unknown Unavailable CAPA, ROJAS Other Unknown Unavailable Encounter [facility] Date(s): 11/03/24 - 12/03/[address] [address]- Attending Physician: Not on Staff, Attending MD Admitting Physician: Not on Staff, Admitting MD Referring Physician: Not on Staff, Referring MD Encounter Type: Pre-Outpt Allergies, Adverse Reactions, Alerts Substance Criticality Severity Reaction Reaction Severity Status rosuvastatin Active Immunizations Given and Recorded Vaccine Date Status Refusal Reason tetanus/diphtheria/pertussis, acel(Tdap) 11/22/23 Recorded tetanus/diphtheria/pertussis, acel(Tdap) 11/23/12 Recorded influenza virus vaccine, inactivated 02/09/23 Vasiliy rded influenza virus vaccine, inactivated 01/20/22 Vasiliy rded influenza virus vaccine, inactivated 02/27/21 Give n influenza virus vaccine, inactivated 01/16/21 Vasiliy rded influenza virus vaccine, inactivated 05/26/20 Give n influenza virus vaccine, inactivated 03/01/20 Vasiliy rded influenza virus vaccine, inactivated 05/18/19 Vasiliy rded influenza virus vaccine, inactivated 03/07/18 Vasiliy rded influenza virus vaccine, inactivated 12/30/16 Vasiliy rded influenza virus vaccine, inactivated 03/19/16 Vasiliy rded influenza virus vaccine, inactivated 12/24/14 Vasiliy rded influenza virus vaccine, inactivated 02/16/14 Vasiliy rded SARS-CoV-2 (COVID-19) Ad26 vaccine 07/16/21 Given pneumococcal 13-valent vaccine 05/26/20 Given pneumococcal 13-valent vaccine 02/07/15 Recorded zoster vaccine, inactivated 03/01/20 Recorded Zoster Vaccine Live 05/15/14 Recorded pneumococcal 23-valent vaccine 08/12/13 Recorded pneumococcal 23-valent vaccine 05/03/09 Recorded Medications acetaminophen 325 mg oral tablet 650 mg, 2, tablet, By Mouth, Every 4 hours, PRN, Refills 0, Maintenance, Pain , Mild, 10/13/22 10:55:00 AM EDT, Partial fill upon patient request if the prescription is for a schedule II opioid drug. Start Date: 10/13/22 Status: Ordered Medication Dispense Status: Completed Total Allowed Fills: 1 Fills Dispensed: 0 apixaban 5 mg oral tablet 1 tablet = 5 mg, By Mouth, 2 times a day, as directed on package labeling needs to be continued for6 months for clot in lungs, discuss with PCP for continution after, # 60 tablet, 1 Refills, Maintenance, 03/26/22 8:21:00 AM EST, Tablet, [facility], Partial fill upon patient request if the prescription is for a schedule II opioid drug., 130, cm, 10/14/21 4:11:00 EDT, Height, 57.6, kg, 10/09/21 16:03:00 EDT, Dry Weight Start Date: 03/26/22 Stop Date: 05/25/22 Status: Ordered Medication Dispense Status: Completed Quantity: 60.0 Unit: tablet Total Allowed Fills: 2 Fills Dispensed: 0 atorvastatin 40 mg oral tablet 1 tablet = 40 mg, By Mouth, Daily at bedtime, 0 Refills, Maintenance, 03/20/22 4:38:00 PM EST, Tablet, Partial fill upon patient request if the prescription is for a schedule II opioid drug. Start Date: 03/20/22 Status: Ordered Medication Dispense Status: Completed Total Allowed Fills: 1 Fills Dispensed: 0 cyanocobalamin 1000 mcg oral tablet 1,000 mcg, 1, tablet, By Mouth, Daily, # 30 tablet, Refills 0, Tot. Refills 0, Maintenance, 12/19/2109:03:00 AM EDT, Route to Pharmacy Electronically, [facility], Partial fill upon patient request if the prescription is for a schedule II opioid drug., 149, cm, 10/29/20 7:32:00 EDT, Height, 64.9, kg, 10/28/20 13:16:00 EDT, Dry Weight Start Date: 12/19/20 Status: Ordered Medication Dispense Status: Completed Quantity: 30.0 Unit: tablet Total Allowed Fills: 1 Fills Dispensed: 0 Daily Juanito oral tablet 1 tablet, By Mouth, Daily, Maintenance, 07/10/21 4:51:00 PM EDT, Tablet Start Date: 07/10/21 Status: Ordered Medication Dispense Status: Completed Total Allowed Fills: 1 Fills Dispensed: 0 divalproex sodium 500 mg oral tablet, extended release 1 tablet = 500 mg, By Mouth, 2 times a day, # 60 tablet, 0 Refills, Maintenance, 12/19/20 10:01:00 AM EDT, ER Tablet, [facility], Partial fill upon patient request if the prescription is for a schedule II opioid drug., 149, cm, 10/29/20 7:32:00 EDT, Height, 64.9, kg, 10/28/20 13:16:00 EDT, Dry Weight Start Date: 12/19/20 Status: Ordered Medication Dispense Status: Completed Quantity: 60.0 Unit: tablet Total Allowed Fills: 1 Fills Dispensed: 0 ferrous gluconate 324 mg oral tablet 1 tablet = 324 mg, By Mouth, Every other day Start Date: 04/06/24 Status: Ordered Medication Dispense Status: Completed Total Allowed Fills: 1 Fills Dispensed: 0 finasteride 5 mg oral tablet 1 tablet = 5 mg, By Mouth, Daily, # 30 tablet, 0 Refills, Maintenance, 12/19/20 10:01:00 AM EDT, Tablet, [facility], Partial fill upon patient request if the prescription is for a schedule II opioid drug., 149, cm, 10/29/20 7:32:00 EDT, Height, 64.9, kg, 10/28/20 13:16:00 EDT, Dry Weight Start Date: 12/19/20 Status: Ordered Medication Dispense Status: Completed Quantity: 30.0 Unit: tablet Total Allowed Fills: 1 Fills Dispensed: 0 gabapentin 100 mg oral capsule 200 mg, 2, capsule, By Mouth, 3 times a day, # 360 capsule, Refills 0, Tot. Refills 0, Maintenance,11/05/24 10:01:00 AM EDT, Route to Pharmacy Electronically, [facility], Partial fill upon patient request if the prescription is for a schedule II opioid drug., 155, cm, 11/05/24 9:45:00 EDT, Height, 58.4, kg, 11/05/24 0:48:00 EDT, Dry Weight Start Date: 11/05/24 Stop Date: 01/04/25 Status: Ordered Medication Dispense Status: Completed Quantity: 360.0 Unit: capsule Total Allowed Fills: 1 Fills Dispensed: 0 isosorbide mononitrate 30 mg oral tablet, extended release 90 mg, By Mouth, Daily in AM, # 90 tablet, Refills 0, Tot. Refills 0, Maintenance, 06/12/24 2:07:00 PM EDT, Route to Pharmacy Electronically, [facility], Partial fill upon patient request if the prescription is for a schedule II opioid drug., 165, cm, 06/12/24 7:40:00 EDT, Height, 61.3, kg, 04/06/24 22:12:00 EST, Dry Weight Start Date: 06/12/24 Stop Date: 07/12/24 Status: Ordered Medication Dispense Status: Completed Quantity: 90.0 Unit: tablet Total Allowed Fills: 1 Fills Dispensed: 0 Januvia 50 mg oral tablet = 50 mg, By Mouth, Daily, # 90 tablet, 0 Refills, Maintenance, 05/29/23 9:14:00 AM EST, Tablet, [id number], Partial fill upon patient request if the prescription is for a schedule II opioid drug., 145, cm, 05/28/23 19:50:00 EST, Height, 61.4, kg, 05/22/23 22:54:00 EST, Dry Weight Start Date: 05/29/23 Stop Date: 08/27/23 Status: Ordered Medication Dispense Status: Completed Quantity: 90.0 Unit: tablet Total Allowed Fills: 1 Fills Dispensed: 0 melatonin 5 mg oral tablet 1 tablet = 5 mg, By Mouth, Daily at bedtime, PRN for insomnia, 0 Refills, Maintenance, 10/07/22 5:39:00 PM EDT, Tablet, Partial fill upon patient request if the prescription is for a schedule II opioid drug. Start Date: 10/07/22 Status: Ordered Medication Dispense Status: Completed Total Allowed Fills: 1 Fills Dispensed: 0 memantine 10 mg oral tablet 1 tablet = 10 mg, By Mouth, 2 times a day, Maintenance, 08/18/24 7:25:00 PM EDT, Tablet, Partial fill upon patient request if the prescription is for a schedule II opioid drug. Start Date: 08/18/24 Status: Ordered Medication Dispense Status: Completed Total Allowed Fills: 1 Fills Dispensed: 0 metFORMIN 500 mg oral tablet 1 tablet = 500 mg, By Mouth, 2 times a day, 0 Refills, Maintenance, 06/02/21 10:01:00 PM EST, Tablet,; Start Date: 06/02/21 Status: Ordered Medication Dispense Status: Completed Total Allowed Fills: 1 Fills Dispensed: 0 metoprolol succinate 50 mg oral capsule, extended release 1 capsule = 50 mg, By Mouth, Daily, # 30 capsule, 0 Refills, Maintenance, 12/19/20 10:02:00 AM EDT, ER Capsule, [facility], Partial fill upon patient request if the prescription isfor a schedule II opioid drug., 149, cm, 10/29/20 7:32:00 EDT, Height, 64.9, kg, 10/28/20 13:16:00 EDT, Dry Weight Start Date: 12/19/20 Status: Ordered Medication Dispense Status: Completed Quantity: 30.0 Unit: capsule Total Allowed Fills: 1 Fills Dispensed: 0 mirtazapine 7.5 mg oral tablet 1 tablet = 7.5 mg, By Mouth, Daily at bedtime, Maintenance, 08/18/24 7:26:00 PM EDT, Partial fill upon patient request if the prescription is for a schedule II opioid drug. Start Date: 08/18/24 Status: Ordered Medication Dispense Status: Completed Total Allowed Fills: 1 Fills Dispensed: 0 omeprazole 20 mg oral enteric coated tablet 1 tablet = 20 mg, By Mouth, Daily before breakfast, 0 Refills, Maintenance, 05/21/09 2:47:13 PM EST Start Date: 05/21/09 Status: Ordered Medication Dispense Status: Completed Total Allowed Fills: 1 Fills Dispensed: 0 QUEtiapine 25 mg oral tablet 25 mg, 1, tablet, By Mouth, 2 times a day, PRN, Refills 0, Maintenance, Agitation, 10/07/22 5:34:00 PM EDT, Partial fill upon patient request if the prescription is for a schedule II opioid drug. Start Date: 10/07/22 Status: Ordered Medication Dispense Status: Completed Total Allowed Fills: 1 Fills Dispensed: 0 sertraline 25 mg oral tablet 1 tablet = 25 mg, By Mouth, Daily, Maintenance, 08/18/24 7:25:00 PM EDT, Tablet, Partial fill upon patient request if the prescription is for a schedule II opioid drug. Start Date: 08/18/24 Status: Ordered Medication Dispense Status: Completed Total Allowed Fills: 1 Fills Dispensed: 0 tamsulosin 0.4 mg oral capsule 0.4 mg, 1, capsule, By Mouth, Daily, # 30 capsule, Refills 0, Tot. 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 Confirmed 07/13/11 Active CKD stage 3 Confirmed Active Coronary artery disease (CAD) Confirmed 07/13/11 Active COVID-19 1 Confirmed 03/26/22 Active Dementia Confirmed Active Depression Confirmed Active Diabetes mellitus - adult onset Confirmed 07/13/11 Active Dyslipidemia Confirmed 07/13/11 Active GERD (gastroesophageal reflux disease) Confirmed Active HFpEF - heart failure with preserved ejection fraction Confirmed Active History of pulmonary embolus Confirmed Active Hyperlipidemia Confirmed Active Hyperparathyroidism Confirmed 07/13/11 Active Hypertension Confirmed 07/13/11 Active skilled nursing current use of anticoagulant Confirmed Active Long-term current use of anticonvulsant Confirmed Active Myocardial infarction Confirmed 07/13/11 Active Seizure disorder Confirmed Active Diabetes mellitus, type 2 Confirmed Active 1Problem added by Discern Expert Social History Social History Type Response Smoking Status Former smoker; Tobac co user in household: No; Other: pt states he quit smoking at age 20; entered on: 10/03/15 Sex Sex Representation Male (finding) Patient Care team information Care Team Personnel Name: Marisa Martinez RN Position: [facility] RN Member Role: Primary Care Nurse Name: Susan Giordano NP Position: [facility] Associate Professional Member Role: Primary Care Nurse Address: [address] [place] [address] [facility] [address] Telecom: Name: Josseline Scherer RN Position: [facility] RN Member Role: Primary Care Nurse Name: Sina Austin RN Position: [facility] RN Member Role: Primary Care Nurse Name: Savannah Edwards Position: [facility] RN Supv Member Role: Primary Care Nurse Name: Gillian Schroeder RN Position: [facility] RN Member Role: Primary Care Nurse Name: Derrick Grewal RN Position: [facility] RN Member Role: Primary Care Nurse Name: Raina Novoa RN Position: [facility] RN Member Role: Primary Care Nurse Name: Leroy Cheng RN Position: [facility] RN Member Role: Primary Care Nurse Name: Jessica Kelly RN Position: [facility] RN Member Role: Primary Care Nurse Name: Alyx Coretz RN Position: [facility] RN Member Role: Primary Care Nurse Name: Lety Ford Position: [facility] RN Member Role: Primary Care Nurse Name: Hemalatha Spangler RN Position: [facility] RN Member Role: Primary Care Nurse Name: Nancy Awad RN Position: [facility] RN Member Role: Primary Care Nurse Name: Skye Arthur RN Position: [facility] RN Member Role: Primary Care Nurse Name: Brandie Zaldivar RN Position: [facility] RN Member Role: Primary Care Nurse Name: Roger Cramer LPN Position: [facility] RN Member Role: Primary Care Nurse Name: Amanda Giron RN Position: [facility] RN Member Role: Primary Care Nurse Name: Jessica Youngblood RN Position: [facility] Hospital Stripping Shovel Operator Member Role: Primary Care Nurse Name: Em Payan RN Position: [facility] RN Member Role: Primary Care Nurse Name: Corinna Fernandez RN Position: [facility] RN Member Role: Primary Care Nurse Name: Alessio Lizama RN Position: [facility] RN Member Role: Primary Care Nurse Name: Alejandro Norris RN Position: [facility] RN Member Role: Primary Care Nurse Name: Treva Guzmán RN Position: [facility] ED RN W/OE and Tasks Member Role: Primary Care Nurse Name: Liv Sepulveda RN Position: [facility] RN Member Role: Primary Care Nurse Name: Susan Bay RN Position: [facility] RN Member Role: Primary Care Nurse Name: Alessandra Camarena RN Position: [facility] RN Member Role: Primary Care Nurse Name: Lubna Henson RN Position: [facility] RN Member Role: Primary Care Nurse Name: Milagro Delgado RN Position: [facility] RN Member Role: Primary Care Nurse Name: Radha Rivera RN Position: [facility] RN Member Role: Primary Care Nurse Name: Chloe Spencer NP Position: Reference Physician Member Role: Primary Care Nurse Address: [address] [facility] [address] Telecom: Name: Apryl Aleman RN Position: [facility] RN Member Role: Primary Care Nurse Name: Mirna Azevedo RN Position: [facility] RN Member Role: Primary Care Nurse Name: Addis Cary RN Position: [facility] RN Member Role: Primary Care Nurse Name: Rin Carver RN Position: [facility] RN Member Role: Primary Care Nurse Name: Lilian Selby RN Position: [facility] RN Member Role: Primary Care Nurse Name: Dante Kowlaski RN Position: [facility] RN Member Role: Primary Care Nurse Name: Fidel Moody MD Position: [facility] Outreach Member Role: Lifetime Consulting Physician Address: [address] [facility] [place], [address] Telecom: Name: Amy Peng RN Position: [facility] RN Member Role: Primary Care Nurse Name: Ashley Rogers RN Position: [facility] RN Member Role: Primary Care Nurse Name: Tavon Valdivia RN Position: [facility] RN Member Role: Primary Care Nurse Name: Charlotte Hart RN Position: [facility] RN Member Role: Primary Care Nurse Name: Martha Mckeon RN Position: S RN Member Role: Primary Care Nurse Name: Jose Scott RN Position: [facility] RN Member Role: Primary Care Nurse Name: Vidal Palm MD Position: [facility] Renal MD Member Role: Lifetime Consulting Physician Address: [address] [place] [address] [address] [facility] [address] Telecom: Name: Nicki Bishop RN Position: [facility] OB RN Member Role: Primary Care Nurse Name: Sil Kapoor RN Position: [facility] OB RN Member Role: Primary Care Nurse Name: Meeta Ramírez RN Position: [facility] RN Member Role: Primary Care Nurse Name: Kristen Pena RN Position: [facility] RN Member Role: Primary Care Nurse Name: Ismael Yo RN Position: [facility] RN Member Role: Primary Care Nurse Name: Chan Johnston Position: [facility] RN Member Role: Primary Care Nurse Care Team Related Persons Name: JARRELL BRUNER Name: ROJAS BRUNER Name: MELLISSA CONLEY Insurance Providers Guarantor name[facility] Information #: 1 Payer: [facility] [employer] Payer Identifier: NA Member Number: [id number] Group Number: [id number] Subscriber Identifier: NA Relationship to Subscriber: self Coverage Type: Medicare Managed Care (Includes Medicare Advantage Plans) Coverage Verification Date: NA Telecom: NA Address:
--- OUTSIDE RECORDS SUMMARY | 2024-12-06 10:45 | XMS_ITS | Encounter Summary ---
Author Organization [employer] Address [address] [place] [address] 7 [place] [address] Care Team Providers Care Retirement Plan Specialist Name Role Phone Birgit Keyes MD Primary Care Provider [phone] Encounter Details Date Type Department Care Team ([facility] st Contact Info) Description 12/06/2024 10:45 AM EDT Office Visit [facility] [address] [place], [place] [phone] Birgit Keyes MD [address] [place], [place] [phone] Type 2 diabetes mellitus without complication, without long-term current use of insulin ([facility]) (Primary Dx); Immunization due; Hand cramps Social History Tobacco Use Types Packs/Day Years Used Date Smoking Tobacco: Never Smokeless Tobacco: Never Depression Answer Date Recorded Patient Health Questionnaire-9 Score 0 12/06/2024 Patient Health Questionnaire-9 Score 0 12/06/2024 Last PHQ-9: Questionnaire Data Not on file 0 12/06/2024 Housing Stability Answer Date Recorded What is your housing situation today? I have eduardo weaver 08/02/[address] you li ve. Do you have problems with any of the following? None of the above 08/02/2024 Food Insecurity Answer Date Recorded Within the past 12 months, y ou worried that your food would run out before you got money to buy more: Never True 08/02/2024 Within the past 12 months,th e food you bought just didn't last and you didn't have enough money to get more: Never True 09/2024 Transportation Answer Date Recorded In the past 12 months, has l ack of transportation kept you from medical appts, meetings, work or from getting things needed for daily living? No 08/02/2024 Utilities Answer Date Recorded In the past 12 months, has t he electric, gas, oil or water company threatened to shut off services in your home? No 08/02/2024 Depression Answer Date Recorded Patient Health Questionnaire-2 Score 0 12/06/2024 Internet Access Answer Date Recorded Internet Access Q1 Yes 08/02/2024 Internet Access Q2 Not on file 08/02/2024 Sex and Gender Information Value Date Recorded Sex Assigned at Male 01/26/2022 10:20 AM EDT Legal Sex Male 10:20 AM EDT Gender Identity Male 01/26/2022 10:20 AM EDT Sexual Orientation Choose not to disclose 2021 10:20 AM EDT documented as of this encounter Last Filed Vital Signs Vital Sign Reading Time Taken Comments Blood Pressure 110/62 12/06/2024 11:04 AM EDT Pulse 70 12/06/2024 11:04 AM EDT Temperature 36.2 C (97.2 F) 12/06/2024 11:04 AM EDT Respiratory Rate 18 12/06/2024 11:04 AM EDT Oxygen Saturation 97% 12/06/2024 11:04 AM EDT Inhaled Oxygen Concentration - - Weight - - Height - - Body Mass Index - - documented in this encounter Functional Status * Over the past 2 weeks, how often have you been bothered by any of the following problems? Question Answer Date of Assessment Author Patient Health Questionnaire -2 Score 0 12/06/2024 11:05 AM EDT Mike Larsen MA * Little interest or pleasure in doing things Answer Date of Assessment Author Not at all 12/06/2024 11:05 AM EDT Mike Larsen MA * Feeling down, depressed, or hopeless Answer Date of Assessment Author Not at all 12/06/2024 11:05 AM EDT Mike Larsen MA * Trouble falling or staying asleep, or sleeping too much Answer Date of Assessment Author Not at all 12/06/2024 11:05 AM EDT Mike Larsen MA * Feeling tired or having little energy Answer Date of Assessment Author Not at all 12/06/2024 11:05 AM EDT Mike Larsen MA * Poor appetite or overeating Answer Date of Assessment Author Not at all 12/06/2024 11:05 AM EDT Mkie Larsen MA * Feeling bad about yourself - or that you are a failure or have let yourself or your family down Answer Date of Assessment Author Not at all 12/06/2024 11:05 AM EDT Mike Larsen MA * Trouble concentrating on things, such as reading the newspaper or watching television Answer Date of Assessment Author Not at all 12/06/2024 11:05 AM EDT Mike Larsen MA * Moving or speaking so slowly that other people could have noticed? Or the opposite - being so fidgety or restless that you have been moving around a lot more than usual. Answer Date of Assessment Author Not at all 12/06/2024 11:05 AM EDT Mike Larsen MA * Thoughts that you would be better off or hurting yourself in some way Answer Date of Assessment Author Not at all 12/06/2024 11:05 AM EDT Mike Larsen MA * Patient Health Questionnaire-9 Score Answer Date of Assessment Author 0 12/06/2024 11:05 AM EDT Mike Larsen MA documented as of this encounter Plan of Treatment Scheduled Orders Name Type Priority Associated Diagnoses Orde r Schedule Comprehensive Metabolic Panel Lab Routine Type 2 diabetes mellitus without complication, without long-term current use of insulin ([facility]) Expected: 12/06/2024 (Approximate), Expires: 12/06/2025 Lipid Panel, Standard Lab Routine Type 2 diabetes mellitus without complication, without long-term current use of insulin (CMS/HCC) Expected: 12/06/2024 (Approximate), Expires: 12/06/2025 TSH W/Reflex to FT4 Lab Routine Type 2 diabetes mellitus without complication, without long-term current use of insulin (CMS/HCC) Expected: 12/06/2024 (Approximate), Expires: 12/06/2025 Vitamin B12 (Cobalamin) and Folate Panel, Serum Lab Routine Type 2 diabetes mellitus without complication, without long-term current use of insulin (CMS/HCC) Expected: 12/06/2024 (Approximate), Expires: 12/06/2025 Albumin, Random Urine W/Creatinine Lab Routine Type 2 diabetes mellitus without complication, without long-term current use of insulin ([facility]) Expected: 12/06/2024 (Approximate), Expires: 12/06/2025 Urinalysis, Complete, with Reflex to Culture Lab Routine Type 2 diabetes mellitus without complication, without long-term current use of insulin ([facility]/HCC) Expected: 12/06/2024 (Approximate), Expires: 12/06/2025 Magnesium Lab Routine Hand cramps Expected: 12/06/2024, Expires: 12/06/2025 documented as of this encounter Procedures Procedure Name Priority Date/Time Associated Diagnosis Comments CBC WITH AUTO DIFFERENTIAL Routine 12/06/2024 12:02 PM EDT Type 2 diabetes mellitus without complication, without long-term current use of insulin ([facility]) POCT GLYCATED HEMOGLOBIN, TOTAL Routine 12/06/2024 11:29 AM EDT Type 2 diabetes mellitus without complication, without long-term current use of insulin ([facility]) POCT GLUCOSE Routine 12/06/2024 11:28 AM EDT Type 2 diabetes mellitus without complication, without long-term current use of insulin ([facility]) documented in this encounter Results * (ABNORMAL) CBC auto differential (12/06/2024 12:02 PM EDT) White Blood Count 5.3 4.8 - 10.8 X10*3/uL [facility] Red Blood Count 3.60(L) 4.60 - 5.80 X10*6/uL [facility] Hemoglobin 11.1(L) 14.0 - 18.0 g/dl [facility] Hematocrit 34.0(L) 42.0 - 52.0 % [facility] Mean Corpuscular Volume 94.4 80.0 - 98.0 fL [facility] Mean Corpuscular Hemoglobin 30.8 27.0 - 33.0 pg [facility] Mean Corpuscular HGB Conc 32.6 31.0 - 36.0 g/dl [facility] Red Cell Distribution Width 14.4 11.0 - 16.0 % [facility] Platelet Count 167 160 - 400 X10*3/uL [facility] Mean Platelet Volume 10.4 9.4 - 12.4 fL [facility] Neutrophils Percent Auto 50.9 45 - 73 % [facility] Imm Gran Pct Auto 0.6(H) 0.0 - 0.4 % [facility] Lymphocytes Percent Auto 41.7(H) 20 - 40 % [facility] Monocytes Percent Auto 6.0 2 - 11 % [facility] Eosinophils Percent Auto 0.6 0 - 4 % [facility] Basophils Percent Auto 0.2 0 - 2 % [facility] NRBC Pct Auto 0.0 0.0 - 0.2 /100WBC [facility] Neutrophils Absolute Auto 2.7 2.0 - 8.3 x10*3/uL [facility] Imm Gran Abs Auto 0.03 0.00 - 0.03 X10*3/uL [facility] Lymphocytes Absolute Auto 2.2 1.2 - 4.9 X10*3/uL [facility] Monocytes Absolute Auto 0.3 0.1 - 1.2 X10*3/uL [facility] Eosinophils Absolute Auto 0.0 0.0 - 0.4 X10*3/uL [facility] Basophils Absolute Auto 0.0 0.0 - 0.2 X10*3/uL [facility] NRBC Abs Auto 0.000 0.0 - 0.012 X10*3/uL [facility] Blood Venous blood specimen / Unknown 12/06/2024 12:02 PM EDT 12/06/2024 2:23 PM EDT us Birgit Keyes MD LAB BLOOD ORDERABLES Final Re sult [facility] [address] [place] [address] [phone] * (ABNORMAL) POCT Hgb A1c (12/06/2024 11:29 AM EDT) Hemoglobin A1C 6.3(A) 4.0 - 5.7 % QC Media Lot # [id number] Lot# Expiration Date ,203,555 Blood 12/06/2024 11:2 9 AM EDT Birgit Keyes MD POINT OF CARE TEST ENTER/EDIT ORDERABLES Final Result * POCT Glucose (12/06/2024 11:28 AM EDT) Glucose Blood, POC 184 60 - 200 mg/dL QC Media Lot # [id number] Lot# Expiration Date ,928 Blood Capillary blood specimen / Unknown 12/06/2024 11:28 AM EDT Birgit Keyes MD POINT OF CARE TEST ENTER/EDIT ORDERABLES Final Result documented in this encounter Visit Diagnoses Diagnosis Type 2 diabetes mellitus without complication, without long-term current use of insulin ([facility])- Primary Immunization due Hand cramps Cramp of limb documented in this encounter Additional Health Concerns Assessment Noted Time PHQ-9 Depression Total Score: 0 12/07/19 25 11:05 AM EDT documented as of this encounter Care Teams Retirement Plan Specialist Relationship Specialty Start Date End Date Birgit Keyes MD [address] [place] [address] PCP - General Family Medicine 11/29/20 documented as of this encounter
[2024-12-06 14:26] LABS: MANUAL DIFF FLAG NO
[2024-12-06 14:33] LABS: Hematocrit 34.0 % (42.0-52.0); Hemoglobin 11.1 g/dl (14.0-18.0); Imm Gran Abs Auto 0.03 X10*3/uL (0.00-0.03); Imm Gran Pct Auto 0.6 % (0.0-0.4); Lymphocytes Absolute Auto 2.2 X10*3/uL (1.2-4.9); Mean Corpuscular HGB Conc 32.6 g/dl (31.0-36.0); Mean Corpuscular Hemoglobin 30.8 pg (27.0-33.0); Mean Corpuscular Volume 94.4 fL (80.0-98.0); NRBC Abs Auto 0.000 X10*3/uL (0.0-0.012); NRBC Pct Auto 0.0 /100WBC (0.0-0.2); Platelet Count 167 X10*3/uL (160-400); Red Blood Count 3.60 X10*6/uL (4.60-5.80); White Blood Count 5.3 X10*3/uL (4.8-10.8)
--- OUTSIDE RECORDS SUMMARY | 2024-12-06 15:14 | XMS_ITS | Encounter Summary ---
Author Organization [employer] Address [address] [place] [address] [place], [place] [address] Care Team Providers Care Transformation Coach Name Role Phone Birgit Keyes MD Primary Care Provider [phone] Encounter Details Date Type Department Care Team (Late st Contact Info) Description 08/31/2022 Abstract [facility] MED[facility]INE [address] [place] [address] Birgit Keyes MD [address] [place] [address] Social History Tobacco Use Types Packs/Day Years [...] on filedocumented in this encounter Care Teams Transformation Coach Relationship Specialty Start Date End Date Birgit Keyes MD [address] [place] [address] PCP - General Family Medicine [facility]24 documented as of this encounter
--- OUTSIDE RECORDS SUMMARY | 2024-12-06 15:14 | XMS_ITS | Encounter Summary ---
Author Organization [employer] Address [address] [place] [address] 7 [place] [address] Care Team Providers Care Bar Machine Operator Name Role Phone Birgit Keyes MD Primary Care Provider [phone] Reason for Visit * Reason Onset Date Comments Nurse Triage 04/23/2023 Encounter Details Date Type Department Care Team ([facility] st Contact Info) Description 04/23/2023 Telephone [facility] MED[facility]INE [address] [place] [address] Birgit Keyes MD [address] [place], [place] [phone] Nurse Triage Social History Tobacco Use Types [...] on filedocumented in this encounter Care Teams Bar Machine Operator Relationship Specialty Start Date End Date Birgit Keyes MD [address] [place] [address] PCP - General Family Medicine 11/29/20 [facility] 02/07/24 11/23/24 documented as of this encounter
--- OUTSIDE RECORDS SUMMARY | 2024-12-06 15:14 | XMS_ITS | Encounter Summary ---
Author Organization [employer] Address [address] [place] [address] [address] [place] [address] Care Team Providers Care Dog Track Kennel Manager Name Role Phone Birgit Keyes MD Primary Care Provider [phone] Reason for Visit * Reason Comments Med Refill Encounter Details Date Type Department Care Team ([facility] st Contact Info) Description 08/31/2024 Refill [facility] [address] [place], [place] [phone] Birgit Keyes MD [address] [place] [address] Social History Tobacco Use Types Packs/Day Years [...] off services in your home? No 08/02/2024 Internet Access Answer Date Recorded Internet Access [...] on filedocumented in this encounter Care Teams Dog Track Kennel Manager Relationship Specialty Start Date End Date Birgit Keyes MD [address] [place] [address] PCP - General Family Medicine 11/29/20 [facility] 02/07/24 11/23/24 documented as of this encounter
--- OUTSIDE RECORDS SUMMARY | 2024-12-06 15:14 | XMS_ITS | Encounter Summary ---
Author Organization [employer] Address [address] [place] [address] 7 [place] [address] Care Team Providers Care Paper Rewinder Name Role Phone Birgit Keyes MD Primary Care Provider [phone] Reason for Visit * Reason Onset Date Comments Hospital Follow-up 06/02/2023 Encounter Details Date Type Department Care Team ([facility] st Contact Info) Description 06/02/2023 Telephone [facility] MEDICINE [address] [place] [address] Birgit Keyes MD [address] [place] [address] Hospital Follow-up Social History Tobacco Use Types [...] from pt requesting a HDF appt. [place]: [facility] Date of admission: 05/21/2023 Discharge date: 05/29/2023 Diagnosed: Chest Pain documented in this encounter Plan of Treatment Not on file documented as of this encounter Visit Diagnoses Not on filedocumented in this encounter Care Teams Paper Rewinder Relationship Specialty Start Date End Date Birgit Keyes MD [address] [place] [address] PCP - General Family Medicine 11/29/20 [facility] 02/07/24 11/23/24 documented as of this encounter
--- OUTSIDE RECORDS SUMMARY | 2024-12-06 15:14 | XMS_ITS | Encounter Summary ---
Author Organization [employer] Address [address] [facility] 7 [place] [address] Care Team Providers Care Hog Counter Name Role Phone Birgit Keyes MD Primary Care Provider [phone] Encounter Details Date Type Department Care Team (Latest Contact Info) Description 12/06/2024 Travel Social History Tobacco Use Types Packs/Day [...] AM EDT documented as of this encounter Functional Status * Over the [...] AM EDT Mike Larsen MA * Feeling bad about yourself [...] Diagnoses Not on filedocumented in this encounter Additional Health Concerns Assessment Noted Time PHQ-9 Depression Total Score: 0 12/07/19 25 11:05 AM EDT documented as of this encounter Care Teams Hog Counter Relationship Specialty Start Date End Date Birgit Keyes MD [address] [place] [address] PCP - General Family Medicine 11/29/20 documented as of this encounter
--- OUTSIDE RECORDS SUMMARY | 2024-12-06 15:14 | XMS_ITS | Clinical Summary ---
Author Organization [employer] [facility] Address [address] [place] [address] Care Team Providers Care Postal Sorting Officer Name Role Phone Unavailable Primary Care Provider [...] nts (1 - 1-dose 75+ series) 2017 Depression Screening 03/29/2024 COVID-19 Vaccine (1 - 2023-2 5 season) 2024 Influenza Vaccine (#1) 2024 HIB Vaccines Aged Out No longer [...] age to complete this topic Meningococcal B Vaccine Aged Out No l onger eligible based on patient's age to complete this topic RSV Immunization Patients Un delores 20 months Aged Out No longer eligible b ased on patient's age to complete this topic Varicella Vaccines Aged Out No longer eligible based on patient's age to complete this topic
--- OUTSIDE RECORDS SUMMARY | 2024-12-06 15:14 | XMS_ITS | Encounter Summary ---
Author Organization [employer] Address [address] [place] [address] [address] [address] Care Team Providers Care Inspecting Machine Adjuster Name Role Phone Birgit Keyes MD Primary Care Provider [phone] Reason for Visit * Reason Onset Date Comments Hospital Follow-up 06/19/2024 Encounter Details Date Type Department Care Team ([facility] st Contact Info) Description 06/19/2024 Telephone [facility] MEDICINE [address] [place] [address] Birgit Keyes MD [address] [place] [address] Hospital Follow-up Social History Tobacco Use Types [...] from pt requesting a HDF appt. [place]: [facility] Date of admission: 06/10/2024 Discharge date: 06/12/2024 Diagnosed: Kidney infection *Send message to [facility] * Telephone Encounter - Sanju Shirley - 06/19/2024 1:06 PM EDT Tc from pt requesting a HDF appt. Hospital: [facility] Date of admission: 06/10/2024 Discharge date: 06/12/2024 Diagnosed: Kidney infection *Send message to [facility] Co[facility] documented in this encounter Plan of Treatment Not on file documented as of this encounter Visit Diagnoses Not on filedocumented in this encounter Care Teams Inspecting Machine Adjuster Relationship Specialty Start Date End Date Birgit Keyes MD [address] [place] [address] PCP - General Family Medicine 11/29/20 [facility] 02/07/24 11/23/24 documented as of this encounter
--- OUTSIDE RECORDS SUMMARY | 2024-12-06 15:14 | XMS_ITS | Clinical Summary ---
Author Organization [employer] Address [address] [place] [address] [address] [place] [address] Care Team Providers Care Information Assurance Analyst Name Role Phone Birgit Keyes MD Primary Care Provider [phone] Allergies Active Allergy Reactions Criticality Noted Date [...] TABLET BY MOUTH EVERY MORNING mastique Active nitroglycerin (Nitrostat) 0.4 MG SL tablet Take 1 tab po q 5 min x 3 prn chest pain. If pain persistas after 3 tabs, call 911. 100 tablet 023 Active Lancets (OneTouch Delica Plus [id number]) [facility] TEST BLOOD SUGAR TWICE DAILY 100 each 11 024 Active acetaminophen (Tylenol 8 Hour) 650 MG ER tablet Take 1 tablet (650 mg) by mouth every 8 (eight) hours if needed for mild pain. Do not crush, chew, or split. 90 tablet 1 024 Active senna-docusate sodium (Senokot-S) 8.6-50 MG tabletIndication s:Constipation, unspecified constipation type Take 2 tablets by mouth if needed at bedtime for constipation. 60 tablet 1 024 Active polyethylene glycol, PEG, 3350 (MiraLax) 17 GM/SCOOP powderIndication s:Constipation, unspecified constipation type Take 17 g by mouth Once per day. 527 g 2 024 Active Eliquis 5 MG tabletIndication s:Other acute pulmonary embolism, unspecified whether acute cor pulmonale present ([facility]) TAKE ONE TABLET IN THE MORNING AND EVENING 180 tablet 2 Active omeprazole (PriLOSEC) [address] capsuleIndicatio ns:Gastroesophag eal reflux disease, unspecified whether esophagitis present TAKE ONE CAPSULE EVERY MORNING BEFORE BREAKFAST 90 capsule 1 025 Active ferrous gluconate (Fergon) 324 (37.5 Fe) MG tabletIndication s:Anemia, unspecified type TAKE ONE TABLET EVERY OTHER DAY IN THE MORNING 45 tablet 1 025 Active QUEtiapine (SEROquel) 25 MG tabletIndication s:Severe dementia with other behavioral disturbance, unspecified dementia type ([facility]) TAKE ONE TABLET IN THE MORNING AND EVENING NEEDED AGITATION 60 tablet 5 Active melatonin 5 MG tablet TAKE ONE TABLET EVERY NIGHT AT BEDTIME NEEDED 90 tablet 1 025 Active finasteride (Proscar) 5 MG tablet TAKE ONE TABLET EVERY MORNING 90 tablet 1 Active metFORMIN (Glucophage) 500 MG tablet TAKE ONE TABLET IN THE MORNING AND EVENING 180 tablet 1 Active metoprolol succinate XL (Toprol-XL) 50 MG 24 hr tablet TAKE ONE TABLET EVERY MORNING 90 tablet 1 Active tamsulosin (Flomax) 0.4 MG 24 hr capsule TAKE ONE CAPSULE EVERY MORNING 90 capsule 1 Active Januvia 50 MG tablet TAKE ONE TABLET EVERY MORNING 90 tablet 1 Active cyanocobalamin (Vitamin B-12) 1000 MCG tablet Take 1 tablet (1,000 mcg) by mouth in the morning. 120 tablet 3 Active FREESTYLE LITE test strip Active memantine (Namenda) 10 MG tablet Take 1 tablet by mouth 2 times daily. Active mirtazapine (Remeron) 7.5 MG tablet Take 7.5 mg by mouth. Active divalproex (Depakote) 500 MG EC tabletIndication s:Mood disorder (CMS/HCC) TAKE ONE TABLET TWICE DAILY IN THE MORNING AND AT BEDTIME 180 tablet 2 025 Active sertraline (Zoloft) 25 MG tablet TAKE ONE TABLET EVERY MORNING 90 tablet 1 025 Active atorvastatin (Lipitor) 40 MG tablet TAKE ONE TABLET EVERY NIGHT AT BEDTIME 90 tablet 3 025 Active isosorbide mononitrate ER (Imdur) 30 MG 24 hr tablet TAKE THREE TABLETS EVERY MORNING 90 tablet 2 025 Active Multiple Vitamin (Multivitamin) tabletIndication s:Mood disorder (CMS/HCC) TAKE 1 TABLET EVERY MORNING WITH FOOD 90 tablet 1 025 Active gabapentin (Neurontin) 100 MG capsule Take 2 capsules (200 mg) by mouth 3 times daily. 180 capsule 1 025 2024 Active RSVPreF3 Vac Recomb Adjuvanted 120 MCG/0.5ML reconstituted suspensionIndica tions:Immunizati on due Inject 0.5 mL into the muscle 1 (one) time for 1 dose. 1 each 025 2024 Active zoster vaccine-recombin ant adjuvanted (Shingrix) 50 MCG/0.5ML vaccineIndicatio ns:Immunization due Inject 0.5 mL (50 mcg) into the muscle 1 (one) time for 1 dose. 0.5 mL 025 2024 Active clotrimazole (Lotrimin) 1 % cream clotrimazole 1 % topical cream 2024 Discontinued(T herapy completed) Multiple Vitamin (Multivitamin) tabletIndication s:Mood disorder (CMS/HCC) TAKE ONE TABLET EVERY MORNING WITH FOOD 90 tablet 1 025 2024 Discontinued gabapentin (Neurontin) 100 MG capsule Take 2 capsules by mouth 3 times daily. 025 2024 Discontinued(R eorder (will not trigger notification to Pharmacy)) Active [...] ordered. Long-term current use of anticonvulsant 11/22/19 Heart failure with preserved ejection fraction 0 [...] his needs with a manual wheelchair. 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 Power mobility device is necessary in the home to get to (MRADLs). Patient has sufficient strength and postural stability to operate a scooter. Patient is able to operate scooter tiller Patient will be referred to PT/OT clinic for [id number] examination, and after evaluation by PT/OT will order a power mobility device. Requested nurses to contact [employer] digital strategy manager to requesting at home PT evaluation Retention of urine 10/14/2022 04/22/2023 Complete atrioventricular block 07/16/2022 04/22/2023 Overview (04/22/2023): s/p pacer Benign prostatic hyperplasia with urinary obstru ction 07/16/2022 04/22/2023 Acute non-ST segment elevation myocardial infarc tion 07/16/2022 04/22/2023 Hypoparathyroidism 07/16/2022 04/22/2023 Recurrent falls 07/16/2022 04/22/2023 GERD (gastroesophageal reflux disease) Class 1 obesity 05/25/2022 Routine physical examination [...] Encounters Date Type Department Care Team Description 12/06/2024 10:45 AM EDT Office Visit [facility] [address] [place] [address] Birgit Keyes MD Type 2 diabetes mellitus without complication, without long-term current use of insulin ([facility]) (Primary Dx); Immunization due; Hand cramps 12/06/2024 Travel 12/05/2024 Telephone [facility] [address] [place] [address] Birgit Keyes MD Chart Prep 11/29/2024 Patient Outreach [facility] [address] [place] [address] Birgit Keyes MD Pre-visit Planning ([facility] screening completed on 08/02/24 ) 11/24/2024 Refill [facility] [address] [place] [address] Dirk Mao MD Mood disorder ([facility]) 11/17/2024 Telephone [facility] [address] [place] [address] Aramis Simmons MD No Show 11/16/2024 Telephone [facility] [address] [place] [address] Birgit Keyes MD 11/07/2024 Patient Outreach [facility] [address] [place] [address] Birgit Keyes MD Transition Of Care (Tcm) (HDF scheduled. ) 11/07/2024 Telephone [facility] [address] [place] [address] Birgit Keyes MD Hospital Follow-up 11/03/2024 Telephone [facility] [address] [place] [address] Birgit Keyes MD verbal order 10/27/2024 Refill [facility] [address] [place] [address] Mia Montes De Oca NP 10/06/2024 Refill [facility] [address] [place] [address] Dirk Mao MD 09/06/2024 Refill [facility] [address] [place], [place] [phone] Birgit Keyes MD Mood disorder ([facility]) from Last 3 Months Immunizations Immunization Administration Dates Next Due Influenza High-dose Quadriva lent Preservative Free 02/27/2021,01/16/2021,05/26/2020,03/01 Influenza Quadrivalent Adjuvanted 01/20/2022 Influenza injectable quadriv alent IIV4 with preservative 03/19/2016,12/24/2014 Influenza injectable quadriv alent preservative free 03/07/2018,12/30/2016 Influenza, High Dose Seasona l, Preservative Free 05/18/2019 Influenza, IIV3, injectable 02/09/2023,1 ,01/16/2021,03/01,05/18/2019,03/07/2018,12/30/2016 ,03/19/2016,12/24/2014,02/16/2014 Influenza, Split (incl. michael fied surface antigen) 2012,11/27/2011 Influenza, Unspecified 01/20/2022 Casa SARS-CoV-2 Vaccination 07/16/2021 Pneumococcal Conjugate PCV 13 05/26/2020, 015 Pneumococcal Polysaccharide PPSV23 10/27/2013,,05/03/2009 Tdap 11/22/2023,11/23/2012 Zoster, Recombinant 03/01/2020 Zoster, live 05/15/2014 Social History Tobacco Use Types Packs/Day Years Used Date Smoking Tobacco: Never Smokeless Tobacco: Never Tobacco Cessation:Counseling Given: Not Answered Depression Answer Date Recorded Patient Health Questionnaire-9 Score 0 12/06/2024 Patient Health Questionnaire-9 Score 0 12/06/2024 Last PHQ-9: Questionnaire Data Not on file 0 12/06/2024 Housing Stability Answer Date Recorded What is your housing situation today? I have eduardo owen 08/02/[address] you li [...] Health Maintenance Due Date Last Done Comments Eye Exam 1950 Diabetes: Urine Protein Screening 1961 RSV Patients and Patients Aged 60 years or older (1 - 1-dose 75+ series) 2017 Zoster Vaccines (3 of 3) 04/26/2020 03/01/2020, 04/29 Diabetes: Foot Exam 11/11/2022 Lipid Panel 04/22/2024 04/22/2023, 03/01/2020 COVID-19 Vaccine (2 - season) 2024 07/16/2021 Influenza Vaccine (#1) 2024 , 01/20/2022, 01/20/2022, Additional history exists Alcohol/Substance Use Screening 03/02/2025 03/02/2024 Diabetes: Hemoglobin A1C 06/05/2025 025, 11/22/2023, 04/22/2023, Additional history exists SDOH Screening 08/02/2025 08/02/2024 Depression Screening 12/06/2025 12/06/2024, 12/07/19 Tobacco Screening 12/06/2025 12/06/2024 DTaP/Tdap/Td Vaccines (3 - Td or Tdap) [...] complication, without long-term current use of insulin ([facility]) POCT GLYCATED HEMOGLOBIN, TOTAL Routine 12/06/2024 11:29 AM EDT Type 2 diabetes mellitus without complication, without long-term current use of insulin ([facility]) POCT GLUCOSE Routine 12/06/2024 11:28 AM EDT Type 2 diabetes mellitus without complication, without long-term current use of insulin ([facility]) LIPID PANEL, STANDARD Routine 04/22/2023 11:16 AM EST Type 2 diabetes mellitus without complication, without long-term current use of insulin ([facility]) from Last 3 Months or Most Recently Relevant to Health Maintenance Results * (ABNORMAL) CBC auto differential (12/06/2024 12:02 PM EDT) White Blood Count 5.3 4.8 - 10.8 X10*3/uL [facility] Red Blood Count 3.60(L) 4.60 - 5.80 X10*6/uL [facility] Hemoglobin 11.1(L) 14.0 - 18.0 g/dl [facility] Hematocrit 34.0(L) 42.0 - 52.0 % [facility] Mean Corpuscular Volume 94.4 80.0 - 98.0 fL [facility] Mean Corpuscular Hemoglobin 30.8 27.0 - 33.0 pg [facility] Mean Corpuscular HGB Conc 32.6 31.0 - 36.0 g/dl [facility] Red Cell Distribution Width 14.4 11.0 - 16.0 % [facility] Platelet Count 167 160 - 400 X10*3/uL [facility] Mean Platelet Volume 10.4 9.4 - 12.4 fL [facility] Neutrophils Percent Auto 50.9 45 - 73 % [facility] Imm Gran Pct Auto 0.6(H) 0.0 - 0.4 % [facility] Lymphocytes Percent Auto 41.7(H) 20 - 40 % [facility] Monocytes Percent Auto 6.0 2 - 11 % [facility] Eosinophils Percent Auto 0.6 0 - 4 % [facility] Basophils Percent Auto 0.2 0 - 2 % [facility] NRBC Pct Auto 0.0 0.0 - 0.2 /100WBC [facility] Neutrophils Absolute Auto 2.7 2.0 - 8.3 x10*3/uL [facility] Imm Gran Abs Auto 0.03 0.00 - 0.03 X10*3/uL [facility] Lymphocytes Absolute Auto 2.2 1.2 - 4.9 X10*3/uL [facility] Monocytes Absolute Auto 0.3 0.1 - 1.2 X10*3/uL [facility] Eosinophils Absolute Auto 0.0 0.0 - 0.4 X10*3/uL [facility] Basophils Absolute Auto 0.0 0.0 - 0.2 X10*3/uL [facility] NRBC Abs Auto 0.000 0.0 - 0.012 X10*3/uL [facility] Blood Venous blood specimen / Unknown 12/06/2024 12:02 PM EDT 12/06/2024 2:23 PM EDT Birgit Keyes MD LAB BLOOD ORDERABLES Final Re sult [facility] [address] [place] [phone] * (ABNORMAL) POCT Hgb A1c (12/06/2024 11:29 AM EDT) [facility] Hemoglobin A1C 6.3(A) 4.0 - 5.7 % QC Media Lot # [id number] Lot# Expiration Date [id number] Blood 12/06/2024 11:2 9 AM EDT Birgit Keyes MD POINT OF CARE TEST ENTER/EDIT ORDERABLES Final Result * POCT Glucose (12/06/2024 11:28 AM EDT) Glucose Blood, POC 184 60 - 200 mg/dL QC Media Lot # [id number] Lot# Expiration Date Blood Capillary blood specimen / Unknown 12/06/2024 11:28 AM EDT Birgit Keyes MD POINT OF CARE TEST ENTER/EDIT ORDERABLES Final Result * (ABNORMAL) Lipid Panel, Standard (04/22/2023 11:16 AM EST) Triglycerides 216(H) <150 mg/dL [facility] Comment:Desirable Triglyceri de: less than 150 mg/dLBorderline High Triglyceride 150-199 mg/dLHigh Triglyceride: 200-499 mg/dLVery High Triglyceride: greater than or equal to 5OO mg/dL Cholesterol 157 <200 mg/dL [facility] Comment:Desirable Cholestero l: less than 200 mg/dLBorderline High Cholesterol: 200-239 mg/dLHigh Cholesterol: greater than 239 mg/dL LDL Cholesterol Calculated 70 <100 mg/dL [facility] Comment:Desirable LDL: less than 100 mg/dLNear Optimal/Above Optimal LDL: 110- 129 mg/dLBorderline High LDL: 130-159 mg/dLHigh LDL: 160-189 mg/dLVery High LDL: greater than or equal to 190 mg/dL HDL Cholesterol 44 >40 mg/dL [facility] Comment:Desirable HDL: great er than 40 mg/dL Note: This HDL assay may give artificially low results in patients with liver disease. Blood Venous blood specimen / Unknown 04/22/2023 11:16 AM EST 04/22/2023 2:25 PM EST Birgit Keyes MD LAB BLOOD ORDERABLES Final Re sult [facility] [address] [place] [phone] from Last 3 Months or Most Recently Relevant to Health Maintenance Insurance [facility] OPTIONS (HMO D-SNP) [employer] [id number] Care Teams Information Assurance Analyst Relationship Specialty Start Date End Date Birgit Keyes MD [address] [place] [id number] PCP - General Family Medicine 11/29/20
--- OUTSIDE RECORDS SUMMARY | 2024-12-06 15:14 | XMS_ITS | Encounter Summary ---
Author Organization [employer] Address [address] [place] [address] 7 [place] [address] Care Team Providers Care Galley Hand Name Role Phone Birgit Keyes MD Primary Care Provider [phone] Reason for Visit * Reason Onset Date Comments Hospital Follow-up 02/15/2024 Encounter Details Date Type Department Care Team ([facility] Contact Info) Description 02/15/2024 Telephone [facility] [address] [place] [address] Birgit Keyes MD [address] [place] [address] Hospital Follow-up Social History Tobacco Use Types [...] from pt requesting a HDF appt. Hospital: [facility] Date of admission: 01/21/2024 Discharge date: 01/25/2024 Diagnosed:head injury due to fall documented in this encounter Plan of Treatment Not on file documented as of this encounter Visit Diagnoses Not on filedocumented in this encounter Care Teams Galley Hand Relationship Specialty Start Date End Date Birgit Keyes MD [address] [place] [phone] PCP - General Family Medicine 11/29/20 [facility] 11/23/24 documented as of this encounter
--- OUTSIDE RECORDS SUMMARY | 2024-12-06 15:14 | XMS_ITS | Encounter Summary ---
Author Organization [employer] Address [address] [place] [address] 7 [place] [address] Care Team Providers Care Creasing Machine Operator Name Role Phone Birgit Keyes MD Primary Care Provider [phone] Reason for Visit * Reason Onset Date Comments Hospital Follow-up 10/07/2023 Encounter Details Date Type Department Care Team ([facility] st Contact Info) Description 10/07/2023 Telephone [facility] [address] [place] [address] Birgit Keyes MD [address] [place] [address] Hospital Follow-up Social History Tobacco Use Types [...] encounter Miscellaneous Notes * Telephone Encounter - Jesús Jaguar - 10/07/2023 10:08 AM EDT Tc from pt requesting a HDF appt. Hospital: [facility] Date of admission: 09/26 Discharge date: 10/01 Diagnosed: Infection documented in this encounter Plan of Treatment Not on file documented as of this encounter Visit Diagnoses Not on filedocumented in this encounter Care Teams Creasing Machine Operator Relationship Specialty Start Date End Date Birgit Keyes MD [address] [place] [phone] PCP - General Family Medicine 11/29/20 [facility] 02/07/24 11/23/24 documented as of this encounter
--- OUTSIDE RECORDS SUMMARY | 2024-12-06 15:14 | XMS_ITS | Encounter Summary ---
Author Organization [employer] Address [address] [place] [address] [address] [address] Care Team Providers Care Corn Miller Name Role Phone Birgit Keyes MD Primary Care Provider [phone] Reason for Visit * Reason Onset Date Comments Chart Prep 12/05/2024 Encounter Details Date Type Department Care Team ([facility] Contact Info) Description 12/05/2024 Telephone [facility] [address] [place], [place] [phone] Birgit Keyes MD [address] [place] [address] Chart Prep Social History Tobacco Use Types Packs/Day Years [...] encounter Miscellaneous Notes * Telephone Encounter - Uyen Montesinos [place] - 12/05/2024 1:57 PM EDT Chart Prep Labs: done Images: not applicable Referrals: not applicable Vaccines due: RSV and Zoster Screenings: eye exam and foot exam Overdue care gaps: A1c, Glucose, PHQ-9, and Tobacco documented in this encounter Plan of Treatment Not on file documented as of this encounter Visit Diagnoses Not on filedocumented in this encounter Care Teams Corn Miller Relationship Specialty Start Date End Date Birgit Keyes MD [address] [place] [address] PCP - General Family Medicine 11/29/20 documented as of this encounter
--- OUTSIDE RECORDS SUMMARY | 2024-12-06 15:14 | XMS_ITS | Encounter Summary ---
Author Organization [employer] Address [address] [place] [address] [address] [place] [address] Care Team Providers Care Engineering Inspector Name Role Phone Birgit Keyes MD Primary Care Provider [phone] Reason for Visit * Reason Onset Date Comments Hospital Follow-up 11/07/2024 Encounter Details Date Type Department Care Team ([facility] st Contact Info) Description 11/07/2024 Telephone [facility] [address] [place] [address] Birgit Keyes MD [address] [place] [address] Hospital Follow-up Social History Tobacco Use Types [...] encounter Miscellaneous Notes * Telephone Encounter - Maryanne Johnson - 11/07/2024 1:41 PM EDT Tc from pt requesting a HDF appt. Hospital: Date of admission: 11/02/24 Discharge date: 11/04/24 Diagnosed: UTI documented in this encounter Plan of Treatment Not on file documented as of this encounter Visit Diagnoses Not on filedocumented in this encounter Care Teams Engineering Inspector Relationship Specialty Start Date End Date Birgit Keyes MD [address] [place] [address] PCP - General Family Medicine 11/29/20 [facility] 02/07/24 11/23/24 documented as of this encounter
--- OUTSIDE RECORDS SUMMARY | 2024-12-06 15:14 | XMS_ITS | Clinical Summary ---
Author Organization [facility] Address [address] [place] [address] Care Team Providers Care Jr. Systems Administrator Name Role Phone Unavailable Primary Care Provider [...] Onychomycosis 07/06/2016 12/31/2022 Onychogryphosis 07/06/2016 12/31/2022 Immunizations Immunization Administration Dates Next Due Influenza, Quadrivalent, With [...] Visual Foot Exam 07/19/2022 Influenza Vaccine (#1) 2024 2, 05/18/2019, 03/07/2018, Additional history exists Pneumococcal Vaccine: 50+ Years Completed 05/26/2020, 02/07/2015, 10/27/2013, Additional history exists Pneumococcal Vaccine: Peds (0 to 5 Years) and At-Risk Patients (6 to 49 Years) Discontinued 05/26/2020, 02/07/2015, 10/27/2013, Additional history exists Hepatitis B Vaccine Aged Out No longe r eligible based on patient's age to complete this topic Insurance ([id number]) [employer] [id number] ([id number]) [employer] [id number]
--- OUTSIDE RECORDS SUMMARY | 2024-12-06 15:15 | XMS_ITS | Encounter Summary ---
Author Organization [employer] Address [address] [place] [address] [address] [place] [address] Care Team Providers Care Reporting Manager Name Role Phone Birgit Keyes MD Primary Care Provider [phone] Reason for Visit * Reason Onset Date Comments Verbal Orders 09/29/2023 Encounter Details Date Type Department Care Team ([facility] st Contact Info) Description 09/29/2023 Telephone [facility] [address] [place] [address] Birgit Keyes MD [address] [place] [address] Verbal Orders Social History Tobacco Use Types [...] - 10/04/2023 11:37 AM EDT Tc from [facility] requesting verbal orders to start services for the patient please call [phone] option 2 TC returned to [facility] services and verbal order given to start home care, pt PCP is out of office this week zamora end as . * Telephone Encounter - Sylvain Cardenas - 09/29/2023 8:35 AM EDT Tc from [facility] requesting verbal orders to start services for the patient please call [phone] option 2 documented in this encounter Plan of Treatment Not on file documented as of this encounter Visit Diagnoses Not on filedocumented in this encounter Care Teams Reporting Manager Relationship Specialty Start Date End Date Birgit Keyes MD [address] [place] [phone] PCP - General Family Medicine [facility] 11/23/24 documented as of this encounter
--- OUTSIDE RECORDS SUMMARY | 2024-12-06 15:15 | XMS_ITS | Encounter Summary ---
Author Organization [employer] Address [address] [place] [address] [place], [place] [address] Care Team Providers Care Concrete Placement Equipment Operator Name Role Phone Birgit Keyes MD Primary Care Provider [phone] Reason for Visit * Reason Onset Date Comments FYI 01/03/2024 Encounter Details Date Type Department Care Team ([facility] Contact Info) Description 01/03/[address] [facility] [address] [place], [place] [phone] Birgit Keyes MD [address] [place] [address] FYI Social History Tobacco Use Types Packs/Day [...] 10:06 AM EDT Tc from Birgit with [facility] calling to inform pt has meet his occupational therapy and will be getting discharged this week from services. documented in this encounter Plan of Treatment Not on file documented as of this encounter Visit Diagnoses Not on filedocumented in this encounter Care Teams Concrete Placement Equipment Operator Relationship Specialty Start Date End Date Birgit Keyes MD [address] [place] [id number] PCP - General Family Medicine 11/29/20 [facility] 02/07/24 11/23/24 documented as of this encounter
--- OUTSIDE RECORDS SUMMARY | 2024-12-06 15:15 | XMS_ITS | Encounter Summary ---
Author Organization [employer] Address [address] [place] [address] [address], [place] [address] Care Team Providers Care Cyber Forensics Analyst Name Role Phone Birgit Keyes MD Primary Care Provider [phone] Reason for Visit * Reason Onset Date Comments FYI 02/02/2024 Encounter Details Date Type Department Care Team ([facility] Contact Info) Description 02/02/2024 Telephone [facility] [address] [place], [place] [phone] Birgit Keyes MD [address] [place] [address] FYI Social History Tobacco Use Types Packs/Day [...] 11:30 AM EST Tc from Cristela with [facility] calling to inform will be starting pt with physical and occupational therapy tomorrow 02/03/24. documented in this encounter Plan of Treatment Not on file documented as of this encounter Visit Diagnoses Not on filedocumented in this encounter Care Teams Cyber Forensics Analyst Relationship Specialty Start Date End Date Birgit Keyes MD [address] [place] [id number] PCP - General Family Medicine 11/29/20 [facility] 02/07/24 11/23/24 documented as of this encounter
[2024-12-06 15:31] LABS: Alanine Aminotransferase 7 U/L (0-40); Albumin Level 4.1 g/dL (3.5-5.0); Alkaline Phosphatase 36 U/L (39-117); Anion Gap 14 (12-20); Aspartate Amino Transferase 31 U/L (5-37); Blood Urea Nitrogen 22 mg/dL (9-16); Calcium 9.5 mg/dL (8.4-10.2); Carbon Dioxide 25 mmol/L (22-29); Chloride 109 mmol/L (96-108); Cholesterol 158 mg/dL (<200); Estimated Glomerular Filt Rate 50; HDL Cholesterol 39 mg/dL (>40); Magnesium 1.7 mg/dL (1.6-2.6); Potassium 4.5 mmol/L (3.3-5.1); Sodium 143 mmol/L (135-145); Total Protein 7.6 g/dL (6.5-8.0); Triglycerides 204 mg/dL (<150)
[2024-12-06 15:36] LABS: Folate 9.3 ng/mL (> or = 4.0); Vitamin B12 1118 pg/mL (200-900)
== END 2024-12-06 12:02 | disposition home or self-care (01) ==
LOC: HO.CHCLDS 12:01
PROVIDERS: Visit Provider Family Medicine
DX: E11.9 Type 2 diabetes mellitus without complications (principal); R25.2 Cramp and spasm
CPT/HCPCS: 36415; 80053; 80061; 82607; 82746; 83735; 84443; 85025